=== PATIENT | female | born 1970 | race Caucasian/White ===

== ENCOUNTER 2019-12-23 09:45 | Outpatient (REF) | payer MEDICAID, SELFPAY ==
--- NOTE | 2019-12-23 10:00 | MR_ITS ---
EXAMINATION: MR BREAST WITHOUT AND WITH CONTRAST, BILATERAL CLINICAL INFORMATION: High-risk screening. Dense breasts. Family history of breast cancer. Lifetime risk previously reported at 23%. COMPARISON: Chest CT 08/11/2018. Breast MRI 07/22/2018. Breast MRI 06/03/2017. TECHNIQUE: Imaging was performed with a dedicated breast coil. Prior to the administration of contrast, bilateral axial T1 and bilateral axial T2 weighted sequences were obtained. After the uneventful administration of?7 mL of Gadavist, dynamic contrast-enhanced VIBRANT series through the breasts in the axial plane were performed. Subtracted images were performed and reviewed. A delayed sagittal sequence through both breasts was acquired. Additionally, CAD post-processing, including maximum intensity projections, 3-D reconstructions and kinetic analysis, were performed an independent workstation and reviewed by the interpreting radiologist is a portion of this exam. FINDINGS: The breasts are comprised of heterogeneous, dense fibroglandular parenchyma. The breast parenchyma undergoes marked background enhancement. LEFT BREAST: Amidst dense background enhancement, no suspicious mass, dominant non-mass enhancement or architectural distortion. Biopsy clip artifact noted. There is a morphologically abnormal left axillary node (series 100 image 26/126). This is likely related to prior thoracic surgery, however, further evaluation with targeted ultrasound is advised. Biopsy may be required. RIGHT BREAST: No suspicious mass, dominant non-mass enhancement or architectural distortion. Stable intramammary node in the upper outer quadrant at 10 o'clock (image 38/126). Flattening of the right nipple is a stable finding. Right axillary nodes are normal in appearance. No internal mammary lymphadenopathy. There is sternal artifact from sternotomy wires. An anterior mediastinal mass has been resected. There are linear areas of enhancement in the anterior left mid and lower lung (series 100 image 38, 65/126). Favor segmental atelectasis in the left lung. Follow-up advised with chest CT. Multiplanar reformats suggest abnormal elevation of left diaphragm. This raises the possibility of phrenic nerve paralysis. Consider chest radiography and diaphragmatic fluoroscopy. MR/MR breast BI wo/w con IMPRESSION: 1. No screening MR evidence of breast malignancy. Marked background enhancement limits evaluation. Repeat study in one years time. 2. Morphologically abnormal left axillary node. Recommend targeted diagnostic ultrasound. Although this is likely related to thoracic surgery, underlying, occult breast pathology cannot be excluded. 3. Abnormal elevation of left diaphragm. Diaphragmatic paralysis is a concern. 4. Linear/bandlike areas of enhancement in the left lung, likely atelectasis. ASSESSMENT: LEFT BREAST: BI-RADS Category 4, suspicious finding RIGHT BREAST: BI-RADS scattered 2, benign finding RECOMMENDATIONS: 1. Recommend targeted diagnostic ultrasound of the left axilla. 2. Recommend chest radiography. Consider chest fluoroscopy to assess for left diaphragmatic paralysis. 3. Chest radiography will assist in further evaluation of left lung areas of enhancement. Recommend PA and lateral views to best characterize. Alternatively, the patient could undergo CT of the chest and follow-up of 08/11/2018 exam. The patient is due for yearly screening mammography. This critical result was discussed with LAVERN Rich at 5:20 PM on 12/24/2019 and it was ascertained that the content and urgency of the report was understood at the time of direct communication.
== END 2019-12-23 09:46 | disposition home or self-care (01) ==
LOC: HO.MRI 09:45
PROVIDERS: Visit Provider Surgery
DX: R92.2 Inconclusive mammogram (principal); Z80.3 Family history of malignant neoplasm of breast; Z91.89 Other specified personal risk factors, not elsewhere classified
CPT/HCPCS: 77049

== ENCOUNTER 2020-01-07 09:55 | Outpatient (REF) | payer MEDICAID, SELFPAY | END 2020-01-07 09:56 | disposition home or self-care (01) | LOC: HO.MAMMO 09:55 | PROVIDERS: PCP Internal Medicine; Visit Provider Surgery | DX: Z13.89 Encounter for screening for other disorder (principal) ==

== ENCOUNTER 2020-02-03 07:57 | Outpatient (REF) | payer MEDICAID, SELFPAY ==
--- NOTE | 2020-02-03 | MM_ITS ---
EXAMINATION: US DIAGNOSTIC ULTRASOUND BREAST, LEFT ULTRASOUND GUIDED CORE BIOPSY BREAST, LEFT POST PROCEDURE DIGITAL MAMMOGRAM, LEFT CLINICAL INFORMATION: 49-year-old with recent high risk screening breast MR noting morphologically abnormal left axillary node for sampling. Prior history benign bilateral breast biopsies as well as resection mediastinal thymoma. COMPARISON: MRI right breast 12/23/2019, 07/22/2018, 07/22/2017, CT chest 08/11/2018, bilateral digital breast tomosynthesis 04/15/2018. Most recent outside mammography performed at outside facility in early 2019, not available. TECHNIQUE: Targeted ultrasound of the upper outer left breast and axillary is performed using grayscale imaging and color Doppler. FINDINGS (Diagnostic Left Ultrasound): The node with focal nodular convexity noted on recent MRI is identified. FINDINGS (Ultrasound-guided Biopsy): Proper informed consent is obtained from the patient after discussion of the procedure, potential risks and complications, and alternatives. Patient was given an opportunity for questions. The patient appeared to understand. The patient consented to the procedure and signed the consent form. GUIDANCE: Ultrasound-guided; aseptic technique. LESION: Left axillary node with focal nodular convexity. APPROACH: Oblique caudal cranial. ANESTHESIA: 10 mL 1% lidocaine. DERMATOTOMY: Single skin stone dermatotomy performed. NEEDLE: 16-gauge Bard Marquee biopsy device with co-axial introducer. CORES: 6. CLIP: HydroMARK; shape: open coil. POST PROCEDURE UNILATERAL DIGITAL MAMMOGRAM: The post biopsy mammogram is performed in separate room using separate digital mammography equipment from the biopsy procedure. Single left MLO view is obtained. The breasts are heterogeneously dense, which may obscure small masses (breast composition category: c). The clip marker is in position. There is background increased attenuation from all the local anesthesia and sampling. Otherwise, no gross hematoma. The patient tolerated the procedure well. No immediate complications. Home instructions reviewed with the patient. Final pathology results are pending. MM/MM diagnostic mammo unilat LT IMPRESSION: 1. Status post ultrasound-guided core biopsy left axillary node. 2. Clip placed: HydroMARK; shape: open coil. 3. Pathology pending. An addendum report will be issued.
== END 2020-02-03 07:58 | disposition home or self-care (01) ==
LOC: HO.MAMMO 07:57
PROVIDERS: PCP Internal Medicine; Visit Provider Surgery
DX: R59.0 Localized enlarged lymph nodes (principal); R59.1 Generalized enlarged lymph nodes
CPT/HCPCS: 38505; 76642; 76942; 77065; 88305; 88341; 88342; A4648

== ENCOUNTER → 2020-02-10 11:15 | Outpatient (BNVA) | payer MEDICAID, SELFPAY | PROVIDERS: PCP Internal Medicine; Visit Provider Surgery | DX: Z76.89 Persons encountering health services in other specified circumstances (principal) ==

== ENCOUNTER 2020-03-16 17:18 | Inpatient (IN) | payer MEDICAID, SELFPAY ==
[2020-03-16 17:27] VITALS: BP 129/71; PULSE 115; RESP 24; TEMP 38.6; O2SAT 89; BMI 25.0
--- NOTE | 2020-03-16 17:34 | XR_ITS ---
EXAMINATION: XR CHEST CLINICAL INFORMATION: Shortness of breath and fever. Covid. COMPARISON: 09/04/2017 TECHNIQUE: Frontal view of the chest was obtained. FINDINGS: Elevated left hemidiaphragm. Lung volumes are low. Patchy airspace opacities are seen bilaterally, greatest at the right base. No pleural effusion or pneumothorax. The cardiomediastinal silhouette is unchanged. XR/XR chest 1V IMPRESSION: Patchy airspace opacities, greatest at the right base. This corresponds with the clinical history of Covid.
--- NOTE | 2020-03-16 17:34 | ECG_ITS ---
Test Reason : SOB Blood Pressure : / mmHG Vent. Rate : 098 BPM Atrial Rate : 098 BPM P-R Int : 124 ms QRS Dur : 080 ms QT Int : 328 ms P-R-T Axes : 050 070 022 degrees QTc Int : 418 ms Normal sinus rhythm Normal ECG No previous ECGs available Referred By: Katerin Mcgraw Electronically Signed By:DARIA GARCIA MD
--- NOTE | 2020-03-16 17:39 | ED_ITS ---
HPI - General Adult General Chief complaint: General Medical Stated complaint: +covid, anxiety Time Seen by Provider: 03/16/20 17:33 Source: patient and EMS Mode of arrival: EMS Limitations: no limitations History of Present Illness HPI narrative: 49 y/o female with history of thymoma s/p resection October 2018, anxiety, depression, ?fibromyalgia who presents with symptoms of worsening COVID-19. She was diagnosed on 03/13. She first developed symptoms on 03/09. She reports persistent chills, fever, cough, body aches and headache. She has been taking 1000 mg of Tylenol 4x per day without improvement. She reports SOB and chest discomfort, especially when having coughing fits. MD complaint: COVID-19 symptoms Onset (ago): day(s) () Location: head, chest and back Radiation: non-radiation Severity: severe Quality: aching Pain Consistency: constant Relieving factors: none Exacerbating factors: movement Associated symptoms: chest pain, cough, fever/chills, headaches, loss of appetite, malaise, nausea/vomiting, shortness of breath and weakness Treatments prior to arrival: other (Tylenol @ 4pm ) Related Data Home Medications Medication Instructions Recorded Confirmed acetaminophen 300 mg-codeine 30 mg 1 tab PO Q8H PRN 02/10/20 03/16/20 tablet acetaminophen 325 mg capsule 325 mg PO QID PRN 02/10/20 03/16/20 clonazepam 2 mg tablet 2 mg PO TID 02/10/20 03/16/20 dicyclomine 10 mg capsule 10 mg PO QID 02/10/20 03/16/20 fesoterodine 4 mg tablet,extended 4 mg PO DAILY 02/10/20 03/16/20 release 24 hr gabapentin 800 mg tablet 800 mg PO BID 02/10/20 03/16/20 hydroxyzine HCl 10 mg tablet 10 mg PO TID PRN 02/10/20 03/16/20 omeprazole 40 mg capsule,delayed 40 mg PO BID 02/10/20 03/16/20 release sertraline 100 mg tablet 200 mg PO DAILY tab 02/10/20 03/16/20 Allergies Allergy/AdvReac Type Severity Reaction Status Date / Time ibuprofen [From MOTRIN] Allergy Unknown GASTRITIS Verified 03/16/20 17:27 Motrin Allergy Unknown nausea and Uncoded 03/16/20 17:27 vomiting Review of Systems Review of Systems: Constitutional: + Fever, + Chills ENT/Mouth: + sore throat, No Rhinorrhea, No Swallowing Difficulty Eyes: No Eye Pain, No Swelling, No Redness Cardiovascular: + Chest Pain, + SOB, No Orthopnea, No Edema Respiratory: + Cough, No Sputum, No Wheezing, + dyspnea Gastrointestinal: + Nausea, No Vomiting, No Diarrhea, No abdominal Pain, No Hematochezia, No Melena Genitourinary: No Dysuria, No Urinary Frequency, No Hematuria Musculoskeletal: + joint pain, + Myalgias Skin: No Skin Lesions, No rash Neuro: + Weakness, No Numbness, No Dizziness, + Headache Psych: + Anxiety/Panic, No Depression Heme/Lymph: No Bruising, No Lymphadenopathy Endocrine: No Polyuria, No Polydipsia PMFSH Past Medical History Medical History (Updated 03/16/20 @ 20:54 by LAVERN Matos) Family history of breast cancer Social History Social History (Updated 02/10/20 @ 11:18 by Lucy Franz Oksana) Alcohol intake: never Smoking Status: Never smoker Advance Directives: No Advance Directives Information Provided: Yes Physical Exam Vital Signs: Vital Signs: Last Vital Signs Temp 98.6 F 03/16/20 20:04 Pulse 80 03/16/20 20:04 Resp 22 H 03/16/20 20:04 BP 107/60 03/16/20 20:04 Pulse Ox 99 03/16/20 20:04 Body Mass Index 25.0 Appearance: Alert. Oriented X3. Mild respiratory distress with increased RR, retching in vomit bag, Eyes: Pupils equal, round and reactive to light. ENT: Pharynx normal. Neck: Normal inspection. Neck supple. CVS: rapid rate, regular rhythm. Pulses normal. Respiratory: Mild respiratory rate with RR mid 20's, hoarse cough, non- productive, lungs coarse throughout without rhonchi or rales. Abdomen: Soft with mild epigastric tenderness, +BS x4 Skin: Skin warm, diaphoretic. Normal skin color. Normal skin turgor. No rashes. Extremities: No lower extremity edema. Negative Willy's sign. Neuro: Oriented X 3. Non-focal. Course Course Course Narrative: 49 y/o female presenting with worsening COVID-19 symptoms including SOB, fever, chills, body aches. She presents with fever, tachycardia and hypoxia 89% on RA. Sepsis due to viral infection suspected. Low suspicion for superimposed bacterial infection. Placed on 2L NC with improvement in saturations. Will get sepsis workup, CXR, inflammatory markers. IV decadron ordered. She will require admission given hyoxia. Reevaluation(s) Reevaluation #1: Labs show mild elevation in LFTs. No leukocytosis. No RUQ tenderness, doubt cholecystitis or biliary obstruction, ALP normal.CXR with DDIMER elevated 400s, will get CTA to r/o PE. Reevaluation #2: Patient continues to report headache after Toradol. Temp and HR improved. Will give dose of Benadryl and Reglan as well as additional IVF. CTA negative for PE but showed patchy opacities. Remains on oxygen. Will call hospitalist for admission. Reevaluation #3: Spoke with Dr. Handy who will admit the patient. Medical Decision Making Lab Data Result diagrams: 03/16/20 Unknown 03/16/20 17:44 Labs: Lab Results 03/16/20 03/16/20 03/16/20 Range/Units 17:44 17:44 17:44 WBC (4.8-10.8) X10*3/uL RBC (4.20-5.50) X10*6/uL Hgb (12.0-16.0) g/dl Hct (37-47) % MCV (80-98) fL MCH (27.0-33.0) pg MCHC (31.0-35.0) g/dl RDW (11.0-16.0) % Plt Count (160-400) X10*3/uL MPV (9.4-12.3) fL Immature Gran % (Auto) (0.0-0.4) % Neut % (Auto) (45-73) % Lymph % (Auto) (20-40) % [place] % (Auto) (2-11) % Eos % (Auto) (0-4) % Baso % (Auto) (0-2) % Lymph # (Auto) (1.2-4.9) X10*3/uL [place] # (Auto) (0.1-1.2) X10*3/uL Eos # (Auto) (0.0-0.4) X10*3/uL Baso # (Auto) (0.0-0.2) X10*3/uL Abs Immat Gran (auto) (0.00-0.03) X10*3/uL Absolute Neuts (auto) (2.0-8.3) X10*3/uL Absolute Nucleated RBC (0.0-0.012) X10*3/uL Nucleated RBC % (auto) (0.0-0.2) /100WBC Smear Tech's Comments PT 16.3 H (10.8-13.0) SEC INR 1.4 H (0.9-1.1) APTT 34.6 (24.1-38.0) SEC D-Dimer 457 NG/ML Sodium 135 (135-145) mmol/L Potassium 4.2 (3.3-5.1) mmol/l Chloride 102 (96-108) mmol/L Carbon Dioxide 21 L (22-29) mmol/L Anion Gap 16 (12-20) BUN 10 (9-16) mg/dL Creatinine 0.68 (0.5-1.4) mg/dL Estim Creat Clear Calc 97.2 Estimated GFR > 60 Random Glucose 118 H (60-115) mg/dL Lactic Acid 0.9 (0.5-2.0) mmol/L Calcium 8.2 L (8.4-10.2) mg/dL Total Bilirubin 1.4 H (0.0-1.0) mg/dL Direct Bilirubin 0.7 H (0.0-0.5) mg/dL AST 36 H (5-31) U/L ALT 26 (0-31) U/L Alkaline Phosphatase 86 (39-117) U/L Troponin I High Sens (<3.5-17.0) ng/L B-Natriuretic Peptide (<100) pg/mL Total Protein 7.1 (6.5-8.0) g/dL Albumin 4.1 (3.5-5.0) g/dL COVID-19 (MARBELLA) (Negative) COVID-19 Clin Com 03/16/20 03/16/20 03/16/20 Range/Units 17:44 20:21 Unknown WBC 7.4 (4.8-10.8) X10*3/uL RBC 4.21 (4.20-5.50) X10*6/uL Hgb 12.7 (12.0-16.0) g/dl Hct 37.8 (37-47) % MCV 89.8 (80-98) fL MCH 30.2 (27.0-33.0) pg MCHC 33.6 (31.0-35.0) g/dl RDW 12.4 (11.0-16.0) % Plt Count 219 (160-400) X10*3/uL MPV 10.1 (9.4-12.3) fL Immature Gran % (Auto) 0.3 (0.0-0.4) % Neut % (Auto) 90.3 H (45-73) % Lymph % (Auto) 5.6 L (20-40) % [place] % (Auto) 3.4 (2-11) % Eos % (Auto) 0.1 (0-4) % Baso % (Auto) 0.3 (0-2) % Lymph # (Auto) 0.4 L (1.2-4.9) X10*3/uL [place] # (Auto) 0.3 (0.1-1.2) X10*3/uL Eos # (Auto) 0.0 (0.0-0.4) X10*3/uL Baso # (Auto) 0.0 (0.0-0.2) X10*3/uL Abs Immat Gran (auto) 0.02 (0.00-0.03) X10*3/uL Absolute Neuts (auto) 6.7 (2.0-8.3) X10*3/uL Absolute Nucleated RBC 0.000 (0.0-0.012) X10*3/uL Nucleated RBC % (auto) 0.0 (0.0-0.2) /100WBC Smear Tech's Comments VERIFIED PT (10.8-13.0) SEC INR (0.9-1.1) APTT (24.1-38.0) SEC D-Dimer NG/ML Sodium (135-145) mmol/L Potassium (3.3-5.1) mmol/l Chloride (96-108) mmol/L Carbon Dioxide (22-29) mmol/L Anion Gap (12-20) BUN (9-16) mg/dL Creatinine (0.5-1.4) mg/dL Estim Creat Clear Calc Estimated GFR Random Glucose (60-115) mg/dL Lactic Acid (0.5-2.0) mmol/L Calcium (8.4-10.2) mg/dL Total Bilirubin (0.0-1.0) mg/dL Direct Bilirubin (0.0-0.5) mg/dL AST (5-31) U/L ALT (0-31) U/L Alkaline Phosphatase (39-117) U/L Troponin I High Sens 3.7 (<3.5-17.0) ng/L B-Natriuretic Peptide < 10 (<100) pg/mL Total Protein (6.5-8.0) g/dL Albumin (3.5-5.0) g/dL COVID-19 (MARBELLA) Positive A (Negative) COVID-19 Clin Com See Note ECG Data Attestation: I personally reviewed and interpreted this ECG as follows: Interpretation: normal sinus rhythm, HR 98 bpm, normal IN interval, normal QTc. no ST segment elevations. Scores [place] PE Heart rate > 100 p/min: 1.5 Score: 1.5 2-tier Risk: unlikely risk (5%) 3-tier Risk: low risk (3.4%) Discharge Plan Discharge Clinical Impression: COVID-19 Patient Disposition: Admitted As Inpatient Prescriptions: No Action dicyclomine 10 mg capsule 10 mg PO QID RF: 0 omeprazole 40 mg capsule,delayed release(DR/EC) 40 mg PO BID RF: 0 acetaminophen 325 mg capsule 325 mg PO QID PRN (Reason: Fever Or Pain) RF: 0 sertraline 100 mg tablet 200 mg PO DAILY RF: 0 hydroxyzine HCl 10 mg tablet 10 mg PO TID PRN (Reason: Itching) RF: 0 Toviaz 4 mg tablet extended release 24 hr 4 mg PO DAILY RF: 0 clonazepam 2 mg tablet 2 mg PO TID RF: 0 gabapentin 800 mg tablet 800 mg PO BID RF: 0 acetaminophen-codeine 300-30 mg tablet 1 tab PO Q8H PRN (Reason: Pain (Scale Score 4-6)) RF: 0
[2020-03-16 17:54] LABS: Basophils Percent Auto 0.3 % (0-2); Eosinophils Percent Auto 0.1 % (0-4); Hematocrit 37.8 % (37-47); Hemoglobin 12.7 g/dl (12.0-16.0); Imm Gran Abs Auto 0.02 X10*3/uL (0.00-0.03); Imm Gran Pct Auto 0.3 % (0.0-0.4); Lymphocytes Absolute Auto 0.4 X10*3/uL (1.2-4.9); Lymphocytes Percent Auto 5.6 % (20-40); MANUAL DIFF FLAG SCAN; Mean Corpuscular HGB Conc 33.6 g/dl (31.0-35.0); Mean Corpuscular Hemoglobin 30.2 pg (27.0-33.0); Mean Corpuscular Volume 89.8 fL (80-98); Mean Platelet Volume 10.1 fL (9.4-12.3); Monocytes Absolute Auto 0.3 X10*3/uL (0.1-1.2); Monocytes Percent Auto 3.4 % (2-11); Neutrophils Absolute Auto 6.7 X10*3/uL (2.0-8.3); Neutrophils Percent Auto 90.3 % (45-73); Platelet Count 219 X10*3/uL (160-400); Red Blood Count 4.21 X10*6/uL (4.20-5.50); Red Cell Distribution Width 12.4 % (11.0-16.0); SCAN SMEAR FLAG 1; White Blood Count 7.4 X10*3/uL (4.8-10.8)
[2020-03-16 18:00] LABS: INTERNATIONAL NORM RATIO 1.4 (0.9-1.1); Prothrombin Time 16.3 SEC (10.8-13.0)
[2020-03-16 18:03] LABS: Partial Thromboplastin Time 34.6 SEC (24.1-38.0)
[2020-03-16] MEDS: 0.9 % Sodium Chloride 1,000 ML 999 ML IVCONT ×2 (18:07→20:00)
[2020-03-16] MEDS: Ketorolac Tromethamine 30 MG/ML VIAL IVPUSH (18:07)
[2020-03-16 18:10] LABS: Lactic Acid 0.9 mmol/L (0.5-2.0)
[2020-03-16 18:11] LABS: SLIDE REVIEW VERIFIED
[2020-03-16 18:12] VITALS: BP 123/71; PULSE 101; RESP 22; O2SAT 99
[2020-03-16 18:17] LABS: Alanine Aminotransferase 26 U/L (0-31); Albumin Level 4.1 g/dL (3.5-5.0); Alkaline Phosphatase 86 U/L (39-117); Anion Gap 16 (12-20); Aspartate Amino Transferase 36 U/L (5-31); Bilirubin Direct 0.7 mg/dL (0.0-0.5); Bilirubin Total 1.4 mg/dL (0.0-1.0); Blood Urea Nitrogen 10 mg/dL (9-16); Calcium 8.2 mg/dL (8.4-10.2); Carbon Dioxide 21 mmol/L (22-29); Chloride 102 mmol/L (96-108); Creatinine Clr Calc Pharmacy 97.2; Estimated Glomerular Filt Rate > 60; Glucose Random 118 mg/dL (60-115); Potassium 4.2 mmol/l (3.3-5.1); Sodium 135 mmol/L (135-145); Total Protein 7.1 g/dL (6.5-8.0)
[2020-03-16] MEDS: dexAMETHasone sod phosphate 4 MG/ML VIAL 6 MG IVPUSH (18:24)
[2020-03-16] MEDS: ondansetron HCL 4 MG/2 ML VIAL IVPUSH (18:24)
[2020-03-16 18:32] LABS: B Type Natriuretic Peptide < 10 pg/mL (<100); Troponin-I High Sensitivity 3.7 ng/L (<3.5-17.0)
[2020-03-16 18:54] LABS: D Dimer 457 NG/ML
[2020-03-16 19:14] VITALS: BP 106/60; PULSE 87; RESP 20; TEMP 37.6; O2SAT 99
--- NOTE | 2020-03-16 19:25 | CT_ITS ---
EXAMINATION: CT ANGIOGRAM OF THE CHEST WITH AND WITHOUT CONTRAST (CT PULMONARY ANGIOGRAM FOR PE) CLINICAL INFORMATION: Cardiomegaly, hypoxia, Covid positive. Evaluate for PE. COMPARISON: Chest radiograph performed same day, chest CT 08/11/2018 TECHNIQUE: Prior to contrast administration, noncontrast localization images were obtained. Subsequently, multidetector volumetric imaging was performed from the thoracic inlet to below the diaphragms following the administration of 65.1 mL Omnipaque 350 intravenous contrast. No contrast reaction reported Sagittal, coronal, and MIP oblique sagittal reformatted images were obtained on the CT workstation, uploaded to PACS, and reviewed. This CT examination was performed using dose optimization techniques as appropriate, variously including the following: *Automated exposure control *Adjustment of mA and/or kV according to patient size (this includes techniques or standardized protocols for targeted exams where dose is matched to indication/reason for exam; i.e. extremities or head) *Use of iterative reconstruction technique Total exam dose-length product 274 mGy-cm FINDINGS: QUALITY OF STUDY/CONTRAST BOLUS: The contrast bolus was of satisfactory timing concentration, however the patient's airspace opacities limit sensitivity of the subsegmental pulmonary arteries. PULMONARY ARTERIES: No central pulmonary emboli are identified. THORACIC AORTA: No aneurysm or dissection. LUNG: Patchy peripheral dense and groundglass opacities are seen bilaterally. Left hemidiaphragm elevation. The consolidative changes of the left lung are suspected to also be at least in part due to the left hemidiaphragm elevation. Trachea is midline and central airways are patent. Possible tracheal diverticulum, unchanged since the prior CT from 2019. PLEURA: No pleural effusion or pneumothorax. MEDIASTINUM: Interval surgical removal of the anterior mediastinal mass. Heart size is normal. No pericardial effusion. No mediastinal or hilar lymphadenopathy. Limited views of the thyroid gland are unremarkable. Median sternotomy wires, new since the prior study. No evidence of septal bowing or right heart strain. CHEST WALL/AXILLA: No axillary or internal mammary lymphadenopathy. OSSEOUS STRUCTURES: No acute or suspicious osseous abnormality. UPPER ABDOMEN: No acute findings. No reflux of contrast into the hepatic veins to suggest elevated right heart pressures. CT/CT angio chest PE protocol IMPRESSION: 1. No evidence of pulmonary embolism. 2. Patchy peripheral airspace opacities are nonspecific but are in keeping with the patient's known Covid positive status. 3. Interval resection of the patient's anterior mediastinal mass. 4. Left hemidiaphragm elevation. VTE: negative
--- NOTE | 2020-03-16 19:46 | PC.NURSE ---
pt to and from imaging without incident. pt currently complaining of headache. fever improved.
[2020-03-16] MEDS: iohexoL 350 MG/ML 100 ML INFUS..BTL 65 ML IV (19:57)
[2020-03-16] MEDS: Metoclopramide HCl 10 MG/2 ML VIAL IVPUSH (20:00)
[2020-03-16] MEDS: diphenhydrAMINE HCL 50 MG/ML VIAL 25 MG IVPUSH (20:00)
[2020-03-16 20:04] VITALS: BP 107/60; PULSE 80; RESP 22; TEMP 37; O2SAT 99
[2020-03-16 20:37] LABS: COVID-19 Test Positive (Negative); IDNOW Serial# 9DD0AD1C
--- NOTE | 2020-03-16 20:56 | PC.NURSE ---
PT RESTING IN BED, FEVER BROKE. VSS. SECOND LITER OF IVF INFUSING WITHOUT DIFFICULTY. HOSPITALIST AT BEDSIDE FOR CONSULT.
[2020-03-16 21:11] VITALS: BP 103/66; PULSE 62; RESP 20; O2SAT 100
--- NOTE | 2020-03-16 21:13 | P.HPHOSP_ITS ---
History of Present Illness Date of Service: 03/16/20 Chief Complaint: worsening SOB This is a 49-year-old female with no significant past medical history who presents to the hospital with complaints of worsening shortness of breath. Patient was diagnosed with COVID-19 on Friday the 13 of March and presents today stating that her symptoms are worsening. She is complaining of headache, shortness of breath, worsening cough, chest pain with coughing, body aches, and low appetite. She otherwise denies any nausea vomiting, no abdominal pain, no diarrhea constipation, no urinary symptoms and no lower extremity edema. On arrival to the ED found to be hypoxic with an oxygen level of 89% on room air. She also has a temp of 101.4?, pulse rate of 115, respiratory rate of 24 blood pressure of 129/71 Labs are significant for WBC count of 7.4, hemoglobin of 12.7, PT of 16.3, INR of 1.4, total bili of 1.4, AST of 36, COVID-19 positive, chest x-ray shows Chest CT angiogram shows no evidence of pulmonary embolism, patchy peripheral airspace opacities Past medical history: Denies Surgical history: Reports removal of mediastinal mass Family history: History of breast cancer Social history: Comes from home denies tobacco alcohol or illicit drugs Review of Systems Review of Systems: Yes all other systems are reviewed and are negative [facility] Medical History Family history of breast cancer Social History (Updated 02/10/20 @ 11:18 by HEATH Ulrich) Alcohol intake: never Smoking Status: Never smoker Advance Directives: No Advance Directives Information Provided: Yes Meds Allergies Allergy/AdvReac Type Severity Reaction Status Date / Time ibuprofen [From MOTRIN] Allergy Unknown GASTRITIS Verified 03/16/20 17:27 Motrin Allergy Unknown nausea and Uncoded 03/16/20 17:27 vomiting Home Medications Medication Instructions Recorded Confirmed Type acetaminophen 300 mg-codeine 30 mg 1 tab PO Q8H PRN 02/10/20 03/16/20 History tablet acetaminophen 325 mg capsule 325 mg PO QID PRN 02/10/20 03/16/20 History clonazepam 2 mg tablet 2 mg PO TID 02/10/20 03/16/20 History dicyclomine 10 mg capsule 10 mg PO QID 02/10/20 03/16/20 History fesoterodine 4 mg tablet,extended 4 mg PO DAILY 02/10/20 03/16/20 History release 24 hr gabapentin 800 mg tablet 800 mg PO BID 02/10/20 03/16/20 History hydroxyzine HCl 10 mg tablet 10 mg PO TID PRN 02/10/20 03/16/20 History omeprazole 40 mg capsule,delayed 40 mg PO BID 02/10/20 03/16/20 History release sertraline 100 mg tablet 200 mg PO DAILY tab 02/10/20 03/16/20 History Physical Exam Vital Signs and Narrative: Vital Signs: Last Vital Signs Temp 98.6 F 03/16/20 20:04 Pulse 80 03/16/20 20:04 Resp 22 H 03/16/20 20:04 BP 107/60 03/16/20 20:04 Pulse Ox 99 03/16/20 20:04 Body Mass Index 25.0 Const: General: cooperative, no acute distress and tired appearing Orientation/consciousness: patient oriented x3 Eyes: General: appearance normal, both eyes and all related structures Resp: Effort & Inspection: normal respiratory effort and able to speak in complete sentences Cardio: Rate: regular rate Rhythm: regular rhythm GI: Palpation (GI): Soft to palpation Auscultation: normal bowel sounds Skin: General skin exam: no rashes or lesions noted Neuro: General: patient oriented x3 Cognition (Neuro): normal cognition Extrem: General: Yes normal to inspection and Yes no pedal edema Results Labs CBC and Chem 7: 03/16/20 Unknown 03/16/20 17:44 Labs: Laboratory Results - last 24 hr 03/16/20 03/16/20 03/16/20 17:44 17:44 17:44 MCV MCH MCHC RDW Plt Count MPV Immature Gran % (Auto) Neut % (Auto) Lymph % (Auto) [place] % (Auto) Eos % (Auto) Baso % (Auto) Lymph # (Auto) [place] # (Auto) Eos # (Auto) Baso # (Auto) Abs Immat Gran (auto) Absolute Neuts (auto) Absolute Nucleated RBC Nucleated RBC % (auto) Smear Tech's Comments PT 16.3 H INR 1.4 H APTT 34.6 D-Dimer 457 Anion Gap 16 Estim Creat Clear Calc 97.2 Estimated GFR > 60 Random Glucose 118 H Lactic Acid 0.9 Calcium 8.2 L Total Bilirubin 1.4 H Direct Bilirubin 0.7 H AST 36 H ALT 26 Alkaline Phosphatase 86 Troponin I High Sens B-Natriuretic Peptide Total Protein 7.1 Albumin 4.1 COVID-19 ([facility]) COVID-19 Clin Com 03/16/20 03/16/20 03/16/20 17:44 20:21 Unknown MCV 89.8 MCH 30.2 MCHC 33.6 RDW 12.4 Plt Count 219 MPV 10.1 Immature Gran % (Auto) 0.3 Neut % (Auto) 90.3 H Lymph % (Auto) 5.6 L [place] % (Auto) 3.4 Eos % (Auto) 0.1 Baso % (Auto) 0.3 Lymph # (Auto) 0.4 L [place] # (Auto) 0.3 Eos # (Auto) 0.0 Baso # (Auto) 0.0 Abs Immat Gran (auto) 0.02 Absolute Neuts (auto) 6.7 Absolute Nucleated RBC 0.000 Nucleated RBC % (auto) 0.0 Smear Tech's Comments VERIFIED PT INR APTT D-Dimer Anion Gap Estim Creat Clear Calc Estimated GFR Random Glucose Lactic Acid Calcium Total Bilirubin Direct Bilirubin AST ALT Alkaline Phosphatase Troponin I High Sens 3.7 B-Natriuretic Peptide < 10 Total Protein Albumin COVID-19 ([facility]) Positive A COVID-19 Clin Com See Note Imaging Radiologist's Impressions: Impressions Chest X-Ray 03/16/20 17:34 IMPRESSION: Patchy airspace opacities, greatest at the right base. This corresponds with the clinical history of Covid. Chest CTA 03/16/20 19:25 IMPRESSION: 1. No evidence of pulmonary embolism. 2. Patchy peripheral airspace opacities are nonspecific but are in keeping with the patient's known Covid positive status. 3. Interval resection of the patient's anterior mediastinal mass. 4. Left hemidiaphragm elevation. VTE: negative Assessment and Plan (1) Sepsis: Qualifiers: Sepsis type: sepsis due to unspecified organism Sepsis acute organ dysfunction status: with acute organ dysfunction Severe sepsis acute organ dysfunction type: acute respiratory failure Acute respiratory failure type: with hypoxia Severe sepsis shock status: without septic shock Qualified Code(s): A41.9 - Sepsis, unspecified organism; R65.20 - Severe sepsis without septic shock; J96.01 - Acute respiratory failure with hypoxia Status: Acute (2) Acute respiratory failure with hypoxia: Status: Acute (3) Pneumonia due to COVID-19 virus: Status: Acute 49-year-old female who presents to the hospital with worsening symptoms of COVID-19 infection # acute hypoxic respiratory failure - secondary to COVID-19 pneumonia - low procalcitonin therefore likely would of bacterial infection low Plan: - given hypoxia will start her on Decadron - O2 as required -monitor respiratory status # sepsis - secondary to COVID-19 - follow blood cultures, continue Decadron, hold off on antibiotics at this time # pneumonia - most likely viral secondary to COVID-19 - follow cultures - continue treatment as above DVT prophylaxis: Lovenox
[2020-03-16 21:20] LABS: Procalcitonin 0.16 ng/mL
--- NOTE | 2020-03-16 22:32 | PC.NURSE ---
PT RESTING IN BED EYES CLOSED SKIN PWD RESPIRATIONS EVEN UNLABORED. AWAITING BED ASSIGNMENT FOR ADMISSION. AWARE OF PLAN OF CARE.
[2020-03-17] VITALS (9 sets, daily range): BP systolic 98–141; BP diastolic 57–86; PULSE 57–75; RESP 18–22; TEMP 36.2–37.4; O2SAT 91–100; BMI 25.2
[2020-03-17] MEDS: 0.9 % Sodium Chloride Flush 3 ML SYRINGE IVFLUSH ×3 (00:09→14:34)
--- NOTE | 2020-03-17 00:16 | PC.NURSE ---
PT HELPED TO BATHROOM, GIVEN [facility] GOWN AND WARM WIPES TO CLEAN UP AFTER DIAPHORETIC DUE TO FEVER BREAKING. BEDDING CHANGED. RETURNED TO BED, VSS, SKIN PWD RESPIRATIONS EVEN UNLABORED. OFFERS NO COMPLAINTS AT THIS TIME, PO FLUIDS AND SNACK GIVEN. CONTINUES TO AWAIT BED ASSIGNMENT. AWARE OF PLAN OF CARE.
--- NOTE | 2020-03-17 03:10 | PC.NURSE ---
PT RESTING IN BED EYES CLOSED SKIN PWD RESPIRATIONS EVEN UNLBAORED. VSS. AWAITING BED ASSIGNMENT. WILL CONTINUE TO MONITOR.
--- NOTE | 2020-03-17 06:38 | PC.NURSE ---
PT CONTINUES TO REST IN BED, OFFERS NO COMPLAINTS. NSR ON HEAD OF DRAMA SPO2 99-100% ON 2L. BED ASSIGNMENT RECEIVED, HOLD UNTIL DAY SHIFT FOR REPORT PER [facility].
--- NOTE | 2020-03-17 07:31 | PC.NURSE ---
PT SITTING UP IN BED AT TIME OF SHIFT REPORT, SHE IS EATING SMALL AMOUNTS. NO ACUTE RESP DIFFICULTY NOTED SHE IS WEARING SUPPLEMENTAL O2 WITH GOOD OXYGENATION AWAITING REPORT FOR ADMISSION
[2020-03-17 07:45] LABS: Basophils Percent Auto 0.2 % (0-2); Hemoglobin 12.4 g/dl (12.0-16.0); Imm Gran Abs Auto 0.02 X10*3/uL (0.00-0.03); Imm Gran Pct Auto 0.4 % (0.0-0.4); Lymphocytes Absolute Auto 0.5 X10*3/uL (1.2-4.9); Lymphocytes Percent Auto 10.4 % (20-40); MANUAL DIFF FLAG SCAN; Mean Corpuscular HGB Conc 32.6 g/dl (31.0-35.0); Mean Corpuscular Hemoglobin 30.1 pg (27.0-33.0); Mean Corpuscular Volume 92.2 fL (80-98); Mean Platelet Volume 9.8 fL (9.4-12.3); Monocytes Absolute Auto 0.3 X10*3/uL (0.1-1.2); Monocytes Percent Auto 6.2 % (2-11); Neutrophils Absolute Auto 4.1 X10*3/uL (2.0-8.3); Neutrophils Percent Auto 82.8 % (45-73); Platelet Count 220 X10*3/uL (160-400); Red Blood Count 4.12 X10*6/uL (4.20-5.50); Red Cell Distribution Width 12.5 % (11.0-16.0); SCAN SMEAR FLAG 1
[2020-03-17 08:05] LABS: SLIDE REVIEW VERIFIED
[2020-03-17 08:13] LABS: Anion Gap 14 (12-20); Blood Urea Nitrogen 11 mg/dL (9-16); Calcium 8.2 mg/dL (8.4-10.2); Carbon Dioxide 23 mmol/L (22-29); Chloride 106 mmol/L (96-108); Estimated Glomerular Filt Rate > 60; Glucose Random 103 mg/dL (60-115); Potassium 4.3 mmol/l (3.3-5.1); Sodium 139 mmol/L (135-145)
[2020-03-17] MEDS: Acetaminophen 325 MG TABLET 650 MG PO (09:36)
[2020-03-17] MEDS: Heparin Sodium,Porcine 5,000 UNIT/ML VIAL 5000 UNIT SUBCUT ×2 (09:36→21:30)
[2020-03-17] MEDS: clonazePAM 1 MG TABLET 2 MG PO ×3 (09:36→21:29)
[2020-03-17] MEDS: Gabapentin 400 MG CAPSULE 800 MG PO ×2 (09:36→21:30)
[2020-03-17] MEDS: Dicyclomine HCl 10 MG CAPSULE PO ×3 (09:36→21:33)
[2020-03-17] MEDS: Sertraline HCL 100 MG TABLET 200 MG PO (09:37)
[2020-03-17] MEDS: dexAMETHasone sod phosphate 4 MG/ML VIAL 6 MG IVPUSH (09:37)
[2020-03-17] MEDS: Omeprazole 40 MG CAPSULE.DR PO ×2 (09:40→21:29)
--- NOTE | 2020-03-17 14:11 | MHC.CM.PN ---
Female 49 DX Covid. She lives with family. She is independent. DP home no services family transport. PCP is Dr Baudilio Mcintosh. CM will follow for change to DC needs.
--- NOTE | 2020-03-17 14:45 | PC.NURSE ---
Spoke with pt's who was worried and gave an update. Number that is good to reach him at is [phone]. Matthew said that we can call at any time. Will pass on RN
--- NOTE | 2020-03-17 16:22 | HO.PM.IMPN ---
Subjective Subjective Date of Service: 03/17/20 Interval History: patient seen and examined at bedside patient reported shortness of breath Review of Systems Constitutional: + Fever, + Chills ENT/Mouth: + sore throat, No Rhinorrhea, No Swallowing Difficulty Eyes: No Eye Pain, No Swelling, No Redness Cardiovascular: + Chest Pain, + SOB, No Orthopnea, No Edema Respiratory: + Cough, No Sputum, No Wheezing, + dyspnea Gastrointestinal: + Nausea, No Vomiting, No Diarrhea, No abdominal Pain, No Hematochezia, No Melena Genitourinary: No Dysuria, No Urinary Frequency, No Hematuria Musculoskeletal: + joint pain, + Myalgias Skin: No Skin Lesions, No rash Neuro: + Weakness, No Numbness, No Dizziness, + Headache Psych: + Anxiety/Panic, No Depression Heme/Lymph: No Bruising, No Lymphadenopathy Endocrine: No Polyuria, No Polydipsia Physical Exam Vital Signs: Vital Signs: Last Vital Signs Temp 97.2 F 03/17/20 15:23 Pulse 64 03/17/20 15:23 Resp 20 03/17/20 15:23 BP 113/62 03/17/20 15:23 Pulse Ox 98 03/17/20 15:23 Body Mass Index 25.2 Const: General: cooperative, no acute distress and tired appearing Orientation/consciousness: patient oriented x3 Eyes: General: appearance normal, both eyes and all related structures Resp: Effort & Inspection: normal respiratory effort and able to speak in complete sentences Cardio: Rate: regular rate Rhythm: regular rhythm GI: Palpation (GI): Soft to palpation Auscultation: normal bowel sounds Skin: General skin exam: no rashes or lesions noted Neuro: General: patient oriented x3 Cognition (Neuro): normal cognition Extrem: General: Yes normal to inspection and Yes no pedal edema Objective Data Current Medications Generic Name Dose Route Start Last Admin Trade Name Freq PRN Reason Stop Dose Admin Acetaminophen 650 mg 03/16/20 21:11 03/17/20 09:36 Acetaminophen 325 Mg Tablet PO 650 mg Q6H PRN Administration Pain, Mild (Pain Scale 1-3) Acetaminophen/Codeine Phosphate 1 tab 03/16/20 21:11 Acetaminophen With Codeine # 3 Tablet PO Q8H PRN Pain (Scale Score 4-6) Clonazepam 2 mg 03/17/20 09:00 03/17/20 14:31 Clonazepam 1 Mg Tablet PO 2 mg TID KARTHIK Administration Dexamethasone Sodium Phosphate 6 mg 03/17/20 09:25 03/17/20 09:37 Dexamethasone Sod Phosphate 4 Mg/Ml Vial IVPUSH 6 mg DAILY KARTHIK Administration Dicyclomine HCl 10 mg 03/17/20 09:00 03/17/20 16:18 Dicyclomine Hcl 10 Mg Capsule PO Not Given QID KARTHIK Docusate Sodium 100 mg 03/16/20 21:11 Docusate Sodium 100 Mg Capsule PO DAILY PRN Constipation Gabapentin 800 mg 03/17/20 09:00 03/17/20 09:36 Gabapentin 400 Mg Capsule PO 800 mg BID KARTHIK Administration Heparin Sodium (Porcine) 5,000 unit 03/16/20 21:15 03/17/20 09:36 Heparin Sodium,Porcine 5,000 Unit/Ml Vial SUBCUT 5,000 unit Q12H KARTHIK Administration Hydroxyzine HCl 10 mg 03/16/20 21:11 Hydroxyzine Hcl 10 Mg Tablet PO TID PRN Itching Non-Formulary Medication 4 mg 03/17/20 09:00 Fesoterodine [Toviaz] PO DAILY [facility] Omeprazole 40 mg 03/17/20 09:00 03/17/20 09:40 Omeprazole 40 Mg Capsule.Dr PO 40 mg BID K[facility]IK Administration Ondansetron HCl 4 mg 03/16/20 21:11 Ondansetron Hcl 4 Mg/2 Ml Vial IVPUSH Q8H PRN Nausea and Vomiting Pharmacy Consult 1 each 03/16/20 17:34 Consult Rx Perform Med Rec MISCELLANE ONCE PRN Consult order Sertraline HCl 200 mg 03/17/20 09:00 03/17/20 09:37 Sertraline Hcl 100 Mg Tablet PO 150 mg DAILY [facility] Administration Sodium Chloride 3 ml 03/17/20 00:00 03/17/20 14:34 0.9 % Sodium Chloride Flush 3 Ml Syringe IVFLUSH 3 ml QSHIFT KARTHIK Administration Labs CBC & Chem 7: 03/17/20 07:37 03/17/20 07:37 Assessment and Plan (1) Sepsis: Status: Acute (2) Acute respiratory failure with hypoxia: Status: Acute (3) Pneumonia due to COVID-19 virus: Status: Acute Assessment and Plan: 49-year-old female who presents to the hospital with worsening symptoms of COVID-19 infection Acute hypoxic respiratory failure - secondary to COVID-19 pneumonia - low procalcitonin therefore likely would of bacterial infection low continue IV dexamethasone continue oxygen supplemental COVID pneumonia - most likely viral secondary to COVID-19 - follow cultures continue IV dexamethasone continue supportive management DVT prophylaxis: Lovenox
[2020-03-18 04:00] VITALS: BP 105/59; PULSE 98; RESP 18; TEMP 38.4; O2SAT 96
[2020-03-18] MEDS: Butalb/Acetamin/Caff 50/325/40 TABLET 1 TAB PO (04:54)
--- NOTE | 2020-03-18 05:40 | PC.NURSE ---
T101.1 this am. c/o headache. Declined ice packs. PRN APAP w/ codeine without effect. PRN fioricet approx 0500. Now sleeping.
[2020-03-18 08:00] VITALS: BP 91/56; PULSE 94; RESP 16; TEMP 37.1; O2SAT 93
[2020-03-18] MEDS: Sertraline HCL 100 MG TABLET 200 MG PO (09:50)
[2020-03-18] MEDS: clonazePAM 1 MG TABLET 2 MG PO ×3 (09:50→21:40)
[2020-03-18] MEDS: Gabapentin 400 MG CAPSULE 800 MG PO ×2 (09:50→21:41)
[2020-03-18] MEDS: Omeprazole 40 MG CAPSULE.DR PO ×2 (09:50→21:41)
[2020-03-18] MEDS: dexAMETHasone sod phosphate 4 MG/ML VIAL 6 MG IVPUSH (09:50)
[2020-03-18] MEDS: Heparin Sodium,Porcine 5,000 UNIT/ML VIAL 5000 UNIT SUBCUT ×2 (09:50→21:41)
[2020-03-18] MEDS: 0.9 % Sodium Chloride Flush 3 ML SYRINGE IVFLUSH ×3 (09:50→23:42)
[2020-03-18] MEDS: Dicyclomine HCl 10 MG CAPSULE PO ×4 (09:52→21:41)
[2020-03-18 12:00] VITALS: BP 98/57; PULSE 87; RESP 20; TEMP 37.3; O2SAT 96
--- NOTE | 2020-03-18 14:30 | HO.PM.IMPN ---
Subjective Subjective Date of Service: 03/18/20 Interval History: Patient seen and examined at bedside patient reported shortness of breath and weakness Review of Systems Constitutional: + Fever, + Chills ENT/Mouth: + sore throat, No Rhinorrhea, No Swallowing Difficulty Eyes: No Eye Pain, No Swelling, No Redness Cardiovascular: + Chest Pain, + SOB, No Orthopnea, No Edema Respiratory: + Cough, No Sputum, No Wheezing, + dyspnea Gastrointestinal: + Nausea, No Vomiting, No Diarrhea, No abdominal Pain, No Hematochezia, No Melena Genitourinary: No Dysuria, No Urinary Frequency, No Hematuria Musculoskeletal: + joint pain, + Myalgias Skin: No Skin Lesions, No rash Neuro: + Weakness, No Numbness, No Dizziness, + Headache Psych: + Anxiety/Panic, No Depression Heme/Lymph: No Bruising, No Lymphadenopathy Endocrine: No Polyuria, No Polydipsia Physical Exam Vital Signs: Vital Signs: Last Vital Signs Temp 99.1 F 03/18/20 12:00 Pulse 87 03/18/20 12:00 Resp 20 03/18/20 12:00 BP 98/57 L 03/18/20 12:00 Pulse Ox 96 03/18/20 12:00 Body Mass Index 25.2 Const: General: cooperative, no acute distress and tired appearing Orientation/consciousness: patient oriented x3 Eyes: General: appearance normal, both eyes and all related structures Resp: Effort & Inspection: normal respiratory effort and able to speak in complete sentences Cardio: Rate: regular rate Rhythm: regular rhythm GI: Palpation (GI): Soft to palpation Auscultation: normal bowel sounds Skin: General skin exam: no rashes or lesions noted Neuro: General: patient oriented x3 Cognition (Neuro): normal cognition Extrem: General: Yes normal to inspection and Yes no pedal edema Objective Data Current Medications Generic Name Dose Route Start Last Admin Trade Name Freq PRN Reason Stop Dose Admin Acetaminophen 650 mg 03/16/20 21:11 03/17/20 09:36 Acetaminophen 325 Mg Tablet PO 650 mg Q6H PRN Administration Pain, Mild (Pain Scale 1-3) Acetaminophen/Codeine Phosphate 1 tab 03/16/20 21:11 03/17/20 23:46 Acetaminophen With Codeine # 3 Tablet PO 1 tab Q8H PRN Administration Pain (Scale Score 4-6) Clonazepam 2 mg 03/17/20 09:00 03/18/20 14:12 Clonazepam 1 Mg Tablet PO 2 mg TID KARTHIK Administration Dexamethasone Sodium Phosphate 6 mg 03/17/20 09:25 03/18/20 09:50 Dexamethasone Sod Phosphate 4 Mg/Ml Vial IVPUSH 6 mg DAILY KARTHIK Administration Dicyclomine HCl 10 mg 03/17/20 09:00 03/18/20 14:12 Dicyclomine Hcl 10 Mg Capsule PO 10 mg QID KARTHIK Administration Docusate Sodium 100 mg 03/16/20 21:11 Docusate Sodium 100 Mg Capsule PO DAILY PRN Constipation Gabapentin 800 mg 03/17/20 09:00 03/18/20 09:50 Gabapentin 400 Mg Capsule PO 800 mg BID KARTHIK Administration Heparin Sodium (Porcine) 5,000 unit 03/16/20 21:15 03/18/20 09:50 Heparin Sodium,Porcine 5,000 Unit/Ml Vial SUBCUT 5,000 unit Q12H KARTHIK Administration Hydroxyzine HCl 10 mg 03/16/20 21:11 Hydroxyzine Hcl 10 Mg Tablet PO TID PRN Itching Non-Formulary Medication 4 mg 03/17/20 09:00 Fesoterodine [Toviaz] PO DAILY [facility] Omeprazole 40 mg 03/17/20 09:00 03/18/20 09:50 Omeprazole 40 Mg Capsule.Dr PO 40 mg BID [facility] Administration Ondansetron HCl 4 mg 03/16/20 21:11 Ondansetron Hcl 4 Mg/2 Ml Vial IVPUSH Q8H PRN Nausea and Vomiting Pharmacy Consult 1 each 03/16/20 17:34 Consult Rx Perform Med Rec MISCELLANE ONCE PRN Consult order Sertraline HCl 200 mg 03/17/20 09:00 03/18/20 09:50 Sertraline Hcl 100 Mg Tablet PO 200 mg DAILY [facility] Administration Sodium Chloride 3 ml 03/17/20 00:00 03/18/20 09:50 0.9 % Sodium Chloride Flush 3 Ml Syringe IVFLUSH 3 ml QSHIFT [facility] Administration Labs CBC & Chem 7: 03/17/20 07:37 03/17/20 07:37 Microbiology Microbiology Results: Microbiology 03/16/20 18:00 Blood - Venous Blood Culture - Preliminary No growth after 24 hours. 03/16/20 Unknown Blood - Venous Blood Culture - Preliminary No growth after 24 hours. Assessment and Plan (1) Sepsis: Status: Acute (2) Acute respiratory failure with hypoxia: Status: Acute (3) Pneumonia due to COVID-19 virus: Status: Acute Assessment and Plan: 49-year-old female who presents to the hospital with worsening symptoms of COVID-19 infection Acute hypoxic respiratory failure Still reporting dyspnea and requiring oxygen Secondary to COVID-19 pneumonia continue IV dexamethasone continue oxygen supplemental Continue supportive care DVT prophylaxis: Lovenox
[2020-03-18 16:00] VITALS: BP 102/61; PULSE 63; RESP 18; TEMP 36.6; O2SAT 97
[2020-03-18] MEDS: Remdesivir 200 MG in 0.9 % Sodium Chloride 210 ML 105 MG IV (19:12)
[2020-03-18 20:00] VITALS: BP 96/52; PULSE 64; RESP 18; TEMP 36.6; O2SAT 97
[2020-03-18] MEDS: Acetaminophen 325 MG TABLET 650 MG PO (23:36)
[2020-03-18 23:45] VITALS: BP 141/87; PULSE 88; RESP 20; TEMP 37.3; O2SAT 94
[2020-03-19] VITALS (7 sets, daily range): BP systolic 91–105; BP diastolic 53–59; PULSE 58–92; RESP 16–20; TEMP 36.4–38.2; O2SAT 90–95
[2020-03-19] MEDS: Heparin Sodium,Porcine 5,000 UNIT/ML VIAL 5000 UNIT SUBCUT ×2 (08:03→20:15)
[2020-03-19] MEDS: 0.9 % Sodium Chloride Flush 3 ML SYRINGE IVFLUSH ×2 (08:03→15:28)
[2020-03-19] MEDS: dexAMETHasone sod phosphate 4 MG/ML VIAL 6 MG IVPUSH (08:03)
[2020-03-19] MEDS: Dicyclomine HCl 10 MG CAPSULE PO ×4 (08:04→20:15)
[2020-03-19] MEDS: Sertraline HCL 100 MG TABLET 200 MG PO (08:04)
[2020-03-19] MEDS: Omeprazole 40 MG CAPSULE.DR PO ×2 (08:04→20:15)
[2020-03-19] MEDS: clonazePAM 1 MG TABLET 2 MG PO ×2 (08:04→20:15)
[2020-03-19] MEDS: Gabapentin 400 MG CAPSULE 800 MG PO ×2 (08:04→20:15)
[2020-03-19] MEDS: Acetaminophen 325 MG TABLET 650 MG PO (08:19)
--- NOTE | 2020-03-19 08:36 | PC.NURSE ---
temp 100.8 this am. tylenol given. 02 desat to 86% on 3L NC, increased to 5 L NC with 02 sat now 90%, insp wheeze throughout upper lung diaz
--- NOTE | 2020-03-19 13:37 | P.PNIM_ITS ---
Subjective Subjective Date of Service: 03/19/20 Interval History: Patient seen and examined at bedside patient reported shortness of breath and weakness Review of Systems Constitutional: + Fever, + Chills ENT/Mouth: + sore throat, No Rhinorrhea, No Swallowing Difficulty Eyes: No Eye Pain, No Swelling, No Redness Cardiovascular: + Chest Pain, + SOB, No Orthopnea, No Edema Respiratory: + Cough, No Sputum, No Wheezing, + dyspnea Gastrointestinal: + Nausea, No Vomiting, No Diarrhea, No abdominal Pain, No Hematochezia, No Melena Genitourinary: No Dysuria, No Urinary Frequency, No Hematuria Musculoskeletal: + joint pain, + Myalgias Skin: No Skin Lesions, No rash Neuro: + Weakness, No Numbness, No Dizziness, + Headache Psych: + Anxiety/Panic, No Depression Heme/Lymph: No Bruising, No Lymphadenopathy Endocrine: No Polyuria, No Polydipsia Physical Exam Vital Signs: Vital Signs: Last Vital Signs Temp 97.9 F 03/19/20 12:00 Pulse 72 03/19/20 12:00 Resp 20 03/19/20 12:00 BP 91/56 L 03/19/20 12:00 Pulse Ox 94 03/19/20 12:00 Body Mass Index 25.2 Const: General: cooperative, no acute distress and tired appearing Orientation/consciousness: patient oriented x3 Eyes: General: appearance normal, both eyes and all related structures Resp: Effort & Inspection: normal respiratory effort and able to speak in complete sentences Cardio: Rate: regular rate Rhythm: regular rhythm GI: Palpation (GI): Soft to palpation Auscultation: normal bowel sounds Skin: General skin exam: no rashes or lesions noted Neuro: General: patient oriented x3 Cognition (Neuro): normal cognition Extrem: General: Yes normal to inspection and Yes no pedal edema Objective Data Current Medications Generic Name Dose Route Start Last Admin Trade Name Freq PRN Reason Stop Dose Admin Acetaminophen 650 mg 03/16/20 21:11 03/19/20 08:19 Acetaminophen 325 Mg Tablet PO 650 mg Q6H PRN Administration Pain, Mild (Pain Scale 1-3) Acetaminophen/Codeine Phosphate 1 tab 03/16/20 21:11 03/18/20 23:32 Acetaminophen With Codeine # 3 Tablet PO 1 tab Q8H PRN Administration Pain (Scale Score 4-6) Clonazepam 2 mg 03/17/20 09:00 03/19/20 08:04 Clonazepam 1 Mg Tablet PO 2 mg TID KARTHIK Administration Dexamethasone Sodium Phosphate 6 mg 03/17/20 09:25 03/19/20 08:03 Dexamethasone Sod Phosphate 4 Mg/Ml Vial IVPUSH 6 mg DAILY [facility] Administration Dicyclomine HCl 10 mg 03/17/20 09:00 03/19/20 12:07 Dicyclomine Hcl 10 Mg Capsule PO 10 mg QID [facility]IK Administration Docusate Sodium 100 mg 03/16/20 21:11 Docusate Sodium 100 Mg Capsule PO DAILY PRN Constipation Gabapentin 800 mg 03/17/20 09:00 03/19/20 08:04 Gabapentin 400 Mg Capsule PO [address] [facility] Administration Heparin Sodium (Porcine) 5,000 unit 03/16/20 21:15 03/19/20 08:03 Heparin Sodium,Porcine 5,000 Unit/Ml Vial SUBCUT 5,000 unit Q12H [facility] Administration Hydroxyzine HCl 10 mg 03/16/20 21:11 Hydroxyzine Hcl 10 Mg Tablet PO TID PRN Itching Remdesivir 100 mg/ Sodium 230 mls @ 115 mls/hr 03/19/20 19:00 Chloride IV 03/22/20 20:[address] [facility] Non-Formulary Medication 4 mg 03/17/20 09:00 Fesoterodine [Toviaz] PO DAILY [facility] Omeprazole 40 mg 03/17/20 09:00 03/19/20 08:04 Omeprazole 40 Mg Capsule.Dr PO [address] [facility] Administration Ondansetron HCl 4 mg 03/16/20 21:11 Ondansetron Hcl 4 Mg/2 Ml Vial IVPUSH Q8H PRN Nausea and Vomiting Pharmacy Consult 1 each 03/16/20 17:34 Consult Rx Perform Med Rec MISCELLANE ONCE PRN Consult order Sertraline HCl 200 mg 03/17/20 09:00 03/19/20 08:04 Sertraline Hcl 100 Mg Tablet PO [address] [facility] Administration Sodium Chloride 3 ml 03/17/20 00:00 03/19/20 08:03 0.9 % Sodium Chloride Flush 3 Ml Syringe IVFLUSH [address] [facility] Administration Labs CBC & Chem 7: 03/17/20 07:37 03/17/20 07:37 Microbiology Microbiology Results: Microbiology 03/16/20 18:00 Blood - Venous Blood Culture - Preliminary No growth after 48 hours. 03/16/20 Unknown Blood - Venous Blood Culture - Preliminary No growth after 48 hours. Assessment and Plan (1) Sepsis: Status: Acute (2) Acute respiratory failure with hypoxia: Status: Acute (3) Pneumonia due to COVID-19 virus: Status: Acute Assessment and Plan: 49-year-old female who presents to the hospital with worsening symptoms of COVID-19 infection Acute hypoxic respiratory failure Secondary to COVID-19 pneumonia Still reporting dyspnea and requiring oxygen current required 5 L of oxygen continue IV dexamethasone started on remedesevir per ID monitor LFTs continue oxygen supplemental Continue supportive care DVT prophylaxis: Lovenox
[2020-03-19] MEDS: Remdesivir 100 MG in 0.9 % Sodium Chloride 230 ML 115 MG IV (18:25)
[2020-03-20] VITALS (8 sets, daily range): BP systolic 98–111; BP diastolic 50–67; PULSE 57–72; RESP 18–19; TEMP 36.1–37.1; O2SAT 90–96; BMI 25.9
[2020-03-20] MEDS: 0.9 % Sodium Chloride Flush 3 ML SYRINGE IVFLUSH ×4 (00:49→23:47)
--- NOTE | 2020-03-20 04:53 | PC.NURSE ---
Pt noted to be desatting at 85% on 2L, titrated up to 5L NC, O2 SAT sustaining 90%.
[2020-03-20 07:11] LABS: Alanine Aminotransferase 16 U/L (0-31); Albumin Level 3.5 g/dL (3.5-5.0); Alkaline Phosphatase 65 U/L (39-117); Anion Gap 14 (12-20); Aspartate Amino Transferase 15 U/L (5-31); Bilirubin Total 0.5 mg/dL (0.0-1.0); Blood Urea Nitrogen 13 mg/dL (9-16); Calcium 8.3 mg/dL (8.4-10.2); Carbon Dioxide 27 mmol/L (22-29); Chloride 103 mmol/L (96-108); Estimated Glomerular Filt Rate > 60; Glucose Random 97 mg/dL (60-115); Potassium 4.1 mmol/l (3.3-5.1); Sodium 140 mmol/L (135-145); Total Protein 6.2 g/dL (6.5-8.0)
[2020-03-20] MEDS: Heparin Sodium,Porcine 5,000 UNIT/ML VIAL 5000 UNIT SUBCUT ×2 (08:23→21:54)
[2020-03-20] MEDS: dexAMETHasone sod phosphate 4 MG/ML VIAL 6 MG IVPUSH (08:25)
[2020-03-20] MEDS: clonazePAM 1 MG TABLET 2 MG PO (08:27)
[2020-03-20] MEDS: Dicyclomine HCl 10 MG CAPSULE PO ×4 (08:27→21:54)
[2020-03-20] MEDS: Sertraline HCL 100 MG TABLET 200 MG PO (08:27)
[2020-03-20] MEDS: Omeprazole 40 MG CAPSULE.DR PO ×2 (08:28→21:54)
[2020-03-20] MEDS: Gabapentin 400 MG CAPSULE 800 MG PO ×2 (08:28→21:54)
--- NOTE | 2020-03-20 13:26 | P.PNIM_ITS ---
Subjective Subjective Date of Service: 03/20/20 Interval History: Patient seen and examined at bedside patient reported shortness of breath and weakness Review of Systems Constitutional: + Fever, + Chills ENT/Mouth: + sore throat, No Rhinorrhea, No Swallowing Difficulty Eyes: No Eye Pain, No Swelling, No Redness Cardiovascular: + Chest Pain, + SOB, No Orthopnea, No Edema Respiratory: + Cough, No Sputum, No Wheezing, + dyspnea Gastrointestinal: + Nausea, No Vomiting, No Diarrhea, No abdominal Pain, No Hematochezia, No Melena Genitourinary: No Dysuria, No Urinary Frequency, No Hematuria Musculoskeletal: + joint pain, + Myalgias Skin: No Skin Lesions, No rash Neuro: + Weakness, No Numbness, No Dizziness, + Headache Psych: + Anxiety/Panic, No Depression Heme/Lymph: No Bruising, No Lymphadenopathy Endocrine: No Polyuria, No Polydipsia Physical Exam Vital Signs: Vital Signs: Last Vital Signs Temp 97.5 F 03/20/20 11:32 Pulse 72 03/20/20 11:32 Resp 18 03/20/20 11:32 BP 100/55 L 03/20/20 11:32 Pulse Ox 91 L 03/20/20 11:32 Body Mass Index 25.9 Const: General: cooperative, no acute distress and tired appearing Orientation/consciousness: patient oriented x3 Eyes: General: appearance normal, both eyes and all related structures Resp: Effort & Inspection: normal respiratory effort and able to speak in complete sentences Cardio: Rate: regular rate Rhythm: regular rhythm GI: Palpation (GI): Soft to palpation Auscultation: normal bowel sounds Skin: General skin exam: no rashes or lesions noted Neuro: General: patient oriented x3 Cognition (Neuro): normal cognition Extrem: General: Yes normal to inspection and Yes no pedal edema Objective Data Current Medications Generic Name Dose Route Start Last Admin Trade Name Freq PRN Reason Stop Dose Admin Acetaminophen 650 mg 03/16/20 21:11 03/19/20 08:19 Acetaminophen 325 Mg Tablet PO 650 mg Q6H PRN Administration Pain, Mild (Pain Scale 1-3) Acetaminophen/Codeine Phosphate 1 tab 03/16/20 21:11 03/19/20 17:37 Acetaminophen With Codeine # 3 Tablet PO 1 tab Q8H PRN Administration Pain (Scale Score 4-6) Clonazepam 2 mg 03/17/20 09:00 03/20/20 08:27 Clonazepam 1 Mg Tablet PO 2 mg TID [facility] Administration Dexamethasone Sodium Phosphate 6 mg 03/17/20 09:25 03/20/20 08:25 Dexamethasone Sod Phosphate 4 Mg/Ml Vial IVPUSH 6 mg DAILY [facility] Administration Dicyclomine HCl 10 mg 03/17/20 09:00 03/20/20 08:27 Dicyclomine Hcl 10 Mg Capsule PO 10 mg QID [facility] Administration Docusate Sodium 100 mg 03/16/20 21:11 Docusate Sodium 100 Mg Capsule PO DAILY PRN Constipation Gabapentin 800 mg 03/17/20 09:00 03/20/20 08:28 Gabapentin 400 Mg Capsule PO 800 mg BID [facility] Administration Heparin Sodium (Porcine) 5,000 unit 03/16/20 21:15 03/20/20 08:23 Heparin Sodium,Porcine 5,000 Unit/Ml Vial SUBCUT 5,000 unit Q12H [facility] Administration Hydroxyzine HCl 10 mg 03/16/20 21:11 Hydroxyzine Hcl 10 Mg Tablet PO TID PRN Itching Remdesivir 100 mg/ Sodium 230 mls @ 115 mls/hr 03/19/20 19:00 03/19/20 20:29 Chloride IV 03/22/20 20:59 Infused Q24H [facility] Infusion Non-Formulary Medication 4 mg 03/17/20 09:00 Fesoterodine [Toviaz] PO DAILY [facility] Omeprazole 40 mg 03/17/20 09:00 03/20/20 08:28 Omeprazole 40 Mg Capsule.Dr PO 40 mg BID [facility] Administration Ondansetron HCl 4 mg 03/16/20 21:11 Ondansetron Hcl 4 Mg/2 Ml Vial IVPUSH Q8H PRN Nausea and Vomiting Pharmacy Consult 1 each 03/16/20 17:34 Consult Rx Perform Med Rec MISCELLANE ONCE PRN Consult order Sertraline HCl 200 mg 03/17/20 09:00 03/20/20 08:27 Sertraline Hcl 100 Mg Tablet PO 200 mg DAILY [facility] Administration Sodium Chloride 3 ml 03/17/20 00:00 03/20/20 08:28 0.9 % Sodium Chloride Flush 3 Ml Syringe IVFLUSH 3 ml QSHIFT [facility] Administration Labs CBC & Chem 7: 03/17/20 07:37 03/20/20 05:28 Microbiology Microbiology Results: Microbiology 03/16/20 18:00 Blood - Venous Blood Culture - Preliminary No growth after 48 hours. 03/16/20 Unknown Blood - Venous Blood Culture - Preliminary No growth after 48 hours. Assessment and Plan (1) Sepsis: Status: Acute (2) Acute respiratory failure with hypoxia: Status: Acute (3) Pneumonia due to COVID-19 virus: Status: Acute Assessment and Plan: 49-year-old female who presents to the hospital with worsening symptoms of COVID-19 infection Acute hypoxic respiratory failure Secondary to COVID-19 pneumonia complaining of chest pain Still reporting dyspnea and requiring oxygen currently requiring 5 L of oxygen continue IV dexamethasone continue remedesevir per ID monitor LFTs received plasma continue oxygen supplemental Continue supportive care DVT prophylaxis: Lovenox
--- NOTE | 2020-03-20 15:55 | P.CNID_ITS ---
History of Present Illness Data of Consult Service Date: 03/20/20 Requesting physician: Rowdy Ochoa Primary Care Provider: Unknown Physician HPI Reason for consult: COVID She has shortness of breath and chest pain for less than a week She has had fevers She has COVID diagnosis Review of Systems Review of Systems: Yes all other systems are reviewed and are negative PMFSH Past Medical History Medical History Family history of breast cancer Family History Family history: reviewed and not pertinent Social History Social History Household Members: Family Housing: Apartment Alcohol intake: never Smoking Status: Never smoker service: No Current occupational status: employed Meds Allergies Allergy/AdvReac Type Severity Reaction Status Date / Time ibuprofen [From MOTRIN] Allergy Unknown GASTRITIS Verified 03/16/20 17:27 Motrin Allergy Unknown nausea and Uncoded 03/16/20 17:27 vomiting Home Medications Medication Instructions Recorded Confirmed Type acetaminophen 300 mg-codeine 30 mg 1 tab PO Q8H PRN 02/10/20 03/16/20 History tablet acetaminophen 325 mg capsule 325 mg PO QID PRN 02/10/20 03/16/20 History clonazepam 2 mg tablet 2 mg PO TID 02/10/20 03/16/20 History dicyclomine 10 mg capsule 10 mg PO QID 02/10/20 03/16/20 History fesoterodine 4 mg tablet,extended 4 mg PO DAILY 02/10/20 03/16/20 History release 24 hr gabapentin 800 mg tablet 800 mg PO BID 02/10/20 03/16/20 History hydroxyzine HCl 10 mg tablet 10 mg PO TID PRN 02/10/20 03/16/20 History omeprazole 40 mg capsule,delayed 40 mg PO BID 02/10/20 03/16/20 History release sertraline 100 mg tablet 200 mg PO DAILY tab 02/10/20 03/16/20 History Physical Exam Vital Signs: Vital Signs: Last Vital Signs Temp 97.9 F 03/20/20 15:25 Pulse 62 03/20/20 15:25 Resp 19 03/20/20 15:25 BP 103/64 03/20/20 15:25 Pulse Ox 94 03/20/20 15:25 Body Mass Index 25.9 Const: General: cooperative HENMT: Head: Yes normal to inspection Mouth: moist mucous membranes Resp: Effort & Inspection: normal respiratory effort Cardio: Rate: regular rate Rhythm: regular rhythm GI: Palpation (GI): Soft to palpation and nontender Skin: General skin exam: no rashes or lesions noted Assessment and Plan (1) Pneumonia due to COVID-19 virus: Status: Resolved Would give Remdesivir Continue oxygen Dexamethasone (2) Sepsis: Qualifiers: Acute respiratory failure type: with hypoxia Sepsis acute organ dysfu nction status: with acute organ dysfunction Sepsis type: sepsis due to unspecified organism Severe sepsis acute organ dysfunction type: acute respiratory failure Severe sepsis shock status: without septic shock Qualified Code(s): A41.9 - Sepsis, unspecified organism; R65.20 - Severe sepsis without septic shock; J96.01 - Acute respiratory failure with hypoxia Status: Resolved Results Labs CBC & Chem 7: 03/24/20 06:19 03/26/20 06:18 Labs: BMP 03/20/20 05:28 Sodium 140 Potassium 4.1 Chloride 103 Carbon Dioxide 27 BUN 13 Creatinine 0.72 Calcium 8.3 L Liver Function 03/20/20 Range/Units 05:28 Total Bilirubin 0.5 (0.0-1.0) mg/dL AST 15 D (5-31) U/L ALT 16 (0-31) U/L Alkaline Phosphatase 65 D (39-117) U/L Albumin 3.5 (3.5-5.0) g/dL Microbiology Microbiology Results: Microbiology 03/16/20 18:00 Blood - Venous Blood Culture - Preliminary No growth after 48 hours. 03/16/20 Unknown Blood - Venous Blood Culture - Preliminary No growth after 48 hours.
[2020-03-20] MEDS: Remdesivir 100 MG in 0.9 % Sodium Chloride 230 ML 115 MG IV (19:06)
[2020-03-21 04:00] VITALS: BP 99/57; PULSE 58; RESP 18; TEMP 36.6; O2SAT 5
[2020-03-21 06:57] LABS: Alanine Aminotransferase 13 U/L (0-31); Albumin Level 3.3 g/dL (3.5-5.0); Alkaline Phosphatase 64 U/L (39-117); Aspartate Amino Transferase 22 U/L (5-31); Bilirubin Direct < 0.2 mg/dL (0.0-0.5); Bilirubin Total 0.4 mg/dL (0.0-1.0); Total Protein 6.3 g/dL (6.5-8.0)
[2020-03-21 07:57] VITALS: BP 98/64; PULSE 56; RESP 18; TEMP 36.3; O2SAT 97
[2020-03-21] MEDS: dexAMETHasone sod phosphate 4 MG/ML VIAL 6 MG IVPUSH (08:14)
[2020-03-21] MEDS: 0.9 % Sodium Chloride Flush 3 ML SYRINGE IVFLUSH ×2 (08:15→14:44)
[2020-03-21] MEDS: Heparin Sodium,Porcine 5,000 UNIT/ML VIAL 5000 UNIT SUBCUT ×2 (08:16→20:19)
[2020-03-21] MEDS: Dicyclomine HCl 10 MG CAPSULE PO ×4 (08:17→20:19)
[2020-03-21] MEDS: Omeprazole 40 MG CAPSULE.DR PO ×2 (08:17→20:19)
[2020-03-21] MEDS: clonazePAM 1 MG TABLET 2 MG PO ×3 (08:17→20:20)
[2020-03-21] MEDS: Sertraline HCL 100 MG TABLET 200 MG PO (08:17)
[2020-03-21] MEDS: Gabapentin 400 MG CAPSULE 800 MG PO ×2 (08:17→20:19)
[2020-03-21 10:57] VITALS: BP 93/56; PULSE 66; RESP 18; TEMP 36.4; O2SAT 93
--- NOTE | 2020-03-21 13:47 | HO.PM.IMPN ---
Subjective Subjective Date of Service: 03/21/20 Interval History: Patient seen and examined at bedside patient reported shortness of breath and weakness feeling dizzy Review of Systems Constitutional: + Fever, + Chills ENT/Mouth: + sore throat, No Rhinorrhea, No Swallowing Difficulty Eyes: No Eye Pain, No Swelling, No Redness Cardiovascular: + Chest Pain, + SOB, No Orthopnea, No Edema Respiratory: + Cough, No Sputum, No Wheezing, + dyspnea Gastrointestinal: + Nausea, No Vomiting, No Diarrhea, No abdominal Pain, No Hematochezia, No Melena Genitourinary: No Dysuria, No Urinary Frequency, No Hematuria Musculoskeletal: + joint pain, + Myalgias Skin: No Skin Lesions, No rash Neuro: + Weakness, No Numbness, No Dizziness, + Headache Psych: + Anxiety/Panic, No Depression Heme/Lymph: No Bruising, No Lymphadenopathy Endocrine: No Polyuria, No Polydipsia Physical Exam Vital Signs: Vital Signs: Last Vital Signs Temp 97.5 F 03/21/20 10:57 Pulse 66 03/21/20 10:57 Resp 18 03/21/20 10:57 BP 93/56 L 03/21/20 10:57 Pulse Ox 93 03/21/20 10:57 Body Mass Index 25.9 Const: General: cooperative, no acute distress and tired appearing Orientation/consciousness: patient oriented x3 Eyes: General: appearance normal, both eyes and all related structures Resp: Effort & Inspection: normal respiratory effort and able to speak in complete sentences Cardio: Rate: regular rate Rhythm: regular rhythm GI: Palpation (GI): Soft to palpation Auscultation: normal bowel sounds Skin: General skin exam: no rashes or lesions noted Neuro: General: patient oriented x3 Cognition (Neuro): normal cognition Extrem: General: Yes normal to inspection and Yes no pedal edema Objective Data Current Medications Generic Name Dose Route Start Last Admin Trade Name Freq PRN Reason Stop Dose Admin Acetaminophen 650 mg 03/16/20 21:11 03/19/20 08:19 Acetaminophen 325 Mg Tablet PO 650 mg Q6H PRN Administration Pain, Mild (Pain Scale 1-3) Acetaminophen/Codeine Phosphate 1 tab 03/16/20 21:11 03/21/20 06:03 Acetaminophen With Codeine # 3 Tablet PO 1 tab Q8H PRN Administration Pain (Scale Score 4-6) Clonazepam 2 mg 03/17/20 09:00 03/21/20 08:17 Clonazepam 1 Mg Tablet PO 2 mg TID [facility] Administration Dexamethasone Sodium Phosphate 6 mg 03/17/20 09:25 03/21/20 08:14 Dexamethasone Sod Phosphate 4 Mg/Ml Vial IVPUSH 6 mg DAILY [facility] Administration Dicyclomine HCl 10 mg 03/17/20 09:00 03/21/20 12:22 Dicyclomine Hcl 10 Mg Capsule PO 10 mg QID [facility] Administration Docusate Sodium 100 mg 03/16/20 21:11 Docusate Sodium 100 Mg Capsule PO DAILY PRN Constipation Gabapentin 800 mg 03/17/20 09:00 03/21/20 08:17 Gabapentin 400 Mg Capsule PO 800 mg BID [facility] Administration Heparin Sodium (Porcine) 5,000 unit 03/16/20 21:15 03/21/20 08:16 Heparin Sodium,Porcine 5,000 Unit/Ml Vial SUBCUT 5,000 unit Q12H [facility] Administration Hydroxyzine HCl 10 mg 03/16/20 21:11 Hydroxyzine Hcl 10 Mg Tablet PO TID PRN Itching Remdesivir 100 mg/ Sodium 230 mls @ 115 mls/hr 03/19/20 19:00 03/20/20 22:57 Chloride IV 03/22/20 20:59 Infused Q24H [facility] Infusion Non-Formulary Medication 4 mg 03/17/20 09:00 Fesoterodine [Toviaz] PO DAILY [facility] Omeprazole 40 mg 03/17/20 09:00 03/21/20 08:17 Omeprazole 40 Mg Capsule.Dr PO 40 mg BID [facility] Administration Ondansetron HCl 4 mg 03/16/20 21:11 Ondansetron Hcl 4 Mg/2 Ml Vial IVPUSH Q8H PRN Nausea and Vomiting Pharmacy Consult 1 each 03/16/20 17:34 Consult Rx Perform Med Rec MISCELLANE ONCE PRN Consult order Sertraline HCl 200 mg 03/17/20 09:00 03/21/20 08:17 Sertraline Hcl 100 Mg Tablet PO 200 mg DAILY [facility] Administration Sodium Chloride 3 ml 03/17/20 00:00 03/21/20 08:15 0.9 % Sodium Chloride Flush 3 Ml Syringe IVFLUSH 3 ml QSHIFT [facility] Administration Labs CBC & Chem 7: 03/17/20 07:37 03/20/20 05:28 Microbiology Microbiology Results: Microbiology 03/16/20 18:00 Blood - Venous Blood Culture - Preliminary No growth after 48 hours. 03/16/20 Unknown Blood - Venous Blood Culture - Preliminary No growth after 48 hours. Assessment and Plan (1) Sepsis: Status: Acute (2) Acute respiratory failure with hypoxia: Status: Acute (3) Pneumonia due to COVID-19 virus: Problem details: She has COVID and is ill less than a week She has hypoxia and is on 4 liters Status: Acute Assessment and Plan: 49-year-old female who presents to the hospital with worsening symptoms of COVID-19 infection Acute hypoxic respiratory failure Secondary to COVID-19 pneumonia complaining of chest pain Still reporting dyspnea and dizziness requiring oxygen currently requiring 5 L of oxygen continue IV dexamethasone continue remedesevir date 05/05 , monitor LFTs received plasma continue oxygen supplemental Continue supportive care DVT prophylaxis: Lovenox
[2020-03-21 15:27] VITALS: BP 96/63; PULSE 62; RESP 19; TEMP 36.7; O2SAT 95
[2020-03-21] MEDS: Remdesivir 100 MG in 0.9 % Sodium Chloride 230 ML 115 MG IV (18:08)
[2020-03-21 19:12] VITALS: BP 103/64; PULSE 92; RESP 19; TEMP 36.7; O2SAT 97
[2020-03-21 23:51] VITALS: BP 106/66; PULSE 53; RESP 18; TEMP 36.4; O2SAT 97
[2020-03-22] VITALS (7 sets, daily range): BP systolic 96–131; BP diastolic 54–78; PULSE 39–80; RESP 18–24; TEMP 36.4–36.8; O2SAT 89–97
[2020-03-22] MEDS: 0.9 % Sodium Chloride Flush 3 ML SYRINGE IVFLUSH ×4 (00:22→23:45)
[2020-03-22 07:31] LABS: Alanine Aminotransferase 13 U/L (0-31); Albumin Level 3.3 g/dL (3.5-5.0); Alkaline Phosphatase 72 U/L (39-117); Aspartate Amino Transferase 13 U/L (5-31); Bilirubin Direct 0.2 mg/dL (0.0-0.5); Bilirubin Total 0.3 mg/dL (0.0-1.0); Total Protein 5.9 g/dL (6.5-8.0)
[2020-03-22] MEDS: Gabapentin 400 MG CAPSULE 800 MG PO ×2 (07:36→21:27)
[2020-03-22] MEDS: Dicyclomine HCl 10 MG CAPSULE PO ×3 (07:36→17:19)
[2020-03-22] MEDS: Omeprazole 40 MG CAPSULE.DR PO ×2 (07:36→21:27)
[2020-03-22] MEDS: dexAMETHasone sod phosphate 4 MG/ML VIAL 6 MG IVPUSH (07:37)
[2020-03-22] MEDS: clonazePAM 1 MG TABLET 2 MG PO (07:37)
[2020-03-22] MEDS: Heparin Sodium,Porcine 5,000 UNIT/ML VIAL 5000 UNIT SUBCUT ×2 (07:37→21:27)
[2020-03-22] MEDS: Sertraline HCL 100 MG TABLET 200 MG PO (07:37)
--- NOTE | 2020-03-22 12:29 | MHC.CM.PN ---
DP Female 49 Covid+ Dc plan is home no services with Family proving transportation to home. Pt continues on 5L via NC. She reports dizziness, pleural pain and SOB. CM will follow to assess for change in DC needs. Pt will require a home o2 eval when s+s improve.
--- NOTE | 2020-03-22 15:18 | HO.PM.IMPN ---
Subjective Subjective Date of Service: 03/22/20 Interval History: Patient seen and examined at bedside patient reported shortness of breath and weakness little improved Review of Systems Constitutional: + Fever, + Chills ENT/Mouth: + sore throat, No Rhinorrhea, No Swallowing Difficulty Eyes: No Eye Pain, No Swelling, No Redness Cardiovascular: + Chest Pain, + SOB, No Orthopnea, No Edema Respiratory: + Cough, No Sputum, No Wheezing, + dyspnea Gastrointestinal: + Nausea, No Vomiting, No Diarrhea, No abdominal Pain, No Hematochezia, No Melena Genitourinary: No Dysuria, No Urinary Frequency, No Hematuria Musculoskeletal: + joint pain, + Myalgias Skin: No Skin Lesions, No rash Neuro: + Weakness, No Numbness, No Dizziness, + Headache Psych: + Anxiety/Panic, No Depression Heme/Lymph: No Bruising, No Lymphadenopathy Endocrine: No Polyuria, No Polydipsia Physical Exam Vital Signs: Vital Signs: Last Vital Signs Temp 97.7 F 03/22/20 11:22 Pulse 62 03/22/20 11:22 Resp 22 H 03/22/20 11:22 BP 98/54 L 03/22/20 11:22 Pulse Ox 93 03/22/20 11:22 Body Mass Index 25.9 Const: General: cooperative, no acute distress and tired appearing Orientation/consciousness: patient oriented x3 Eyes: General: appearance normal, both eyes and all related structures Resp: Effort & Inspection: normal respiratory effort and able to speak in complete sentences Cardio: Rate: regular rate Rhythm: regular rhythm GI: Palpation (GI): Soft to palpation Auscultation: normal bowel sounds Skin: General skin exam: no rashes or lesions noted Neuro: General: patient oriented x3 Cognition (Neuro): normal cognition Extrem: General: Yes normal to inspection and Yes no pedal edema Objective Data Current Medications Generic Name Dose Route Start Last Admin Trade Name Freq PRN Reason Stop Dose Admin Acetaminophen 650 mg 03/16/20 21:11 03/19/20 08:19 Acetaminophen 325 Mg Tablet PO 650 mg Q6H PRN Administration Pain, Mild (Pain Scale 1-3) Dexamethasone Sodium Phosphate 6 mg 03/17/20 09:25 03/22/20 07:37 Dexamethasone Sod Phosphate 4 Mg/Ml Vial IVPUSH 6 mg DAILY [facility] Administration Dicyclomine HCl 10 mg 03/17/20 09:00 03/22/20 13:54 Dicyclomine Hcl 10 Mg Capsule PO 10 mg QID [facility] Administration Docusate Sodium 100 mg 03/16/20 21:11 Docusate Sodium 100 Mg Capsule PO DAILY PRN Constipation Gabapentin 800 mg 03/17/20 09:00 03/22/20 07:36 Gabapentin 400 Mg Capsule PO 800 mg BID [facility] Administration Heparin Sodium (Porcine) 5,000 unit 03/16/20 21:15 03/22/20 07:37 Heparin Sodium,Porcine 5,000 Unit/Ml Vial SUBCUT 5,000 unit Q12H [facility] Administration Hydroxyzine HCl 10 mg 03/16/20 21:11 Hydroxyzine Hcl 10 Mg Tablet PO TID PRN Itching Remdesivir 100 mg/ Sodium 230 mls @ 115 mls/hr 03/19/20 19:00 03/21/20 20:25 Chloride IV 03/22/20 20:59 Infused Q24H [facility] Infusion Non-Formulary Medication 4 mg 03/17/20 09:00 Fesoterodine [Toviaz] PO DAILY [facility] Omeprazole 40 mg 03/17/20 09:00 03/22/20 07:36 Omeprazole 40 Mg Capsule. PO 40 mg BID [facility] Administration Ondansetron HCl 4 mg 03/16/20 21:11 Ondansetron Hcl 4 Mg/2 Ml Vial IVPUSH Q8H PRN Nausea and Vomiting Pharmacy Consult 1 each 03/16/20 17:34 Consult Rx Perform Med Rec MISCELLANE ONCE PRN Consult order Sertraline HCl 200 mg 03/17/20 09:00 03/22/20 07:37 Sertraline Hcl 100 Mg Tablet PO 200 mg DAILY [facility] [place] Administration Sodium Chloride 3 ml 03/17/20 00:00 03/22/20 07:38 0.9 % Sodium Chloride Flush 3 Ml Syringe IVFLUSH 3 ml QSHIFT [facility] Administration Labs CBC & Chem 7: 03/17/20 07:37 03/20/20 05:28 Microbiology Microbiology Results: Microbiology 03/16/20 18:00 Blood - Venous Blood Culture - Final No growth after 5 days. 03/16/20 Unknown Blood - Venous Blood Culture - Final No growth after 5 days. Assessment and Plan (1) Sepsis: Status: Acute (2) Acute respiratory failure with hypoxia: Status: Acute (3) Pneumonia due to COVID-19 virus: Status: Acute Assessment and Plan: 49-year-old female who presents to the hospital with worsening symptoms of COVID-19 infection Acute hypoxic respiratory failure Secondary to COVID-19 pneumonia complaining of chest pain Still reporting dyspnea and dizziness requiring oxygen currently requiring 4 L of oxygen continue IV dexamethasone continue remedesevir date 06/05 , monitor LFTs received plasma continue oxygen supplemental Continue supportive care DVT prophylaxis: Lovenox
[2020-03-22] MEDS: Remdesivir 100 MG in 0.9 % Sodium Chloride 230 ML 115 MG IV (18:35)
--- NOTE | 2020-03-22 22:53 | ECG_ITS ---
Test Reason : bradycardia Blood Pressure : / mmHG Vent. Rate : 047 BPM Atrial Rate : 047 BPM P-R Int : 150 ms QRS Dur : 088 ms QT Int : 468 ms P-R-T Axes : 043 051 054 degrees QTc Int : 414 ms Artifact in tracing Sinus bradycardia Otherwise normal ECG COMPARED TO ekg Mar ventricular rate slower Referred By: Jerzy Handy Electronically Signed By:CYNTHIA HERNANDEZ
--- NOTE | 2020-03-22 23:39 | PC.NURSE ---
Bradycardia : heart rate 38-47 tonight. pt reports being very tired, reports dizziness with getting up, standing, walking. Reoprts some sob on 4l via NC at rest , O2 sat 95%. Rn reported it to DR ritchie parmar, EKG ordered and done. Pacer pads are at the bedside. Pt educated to report any worsening symptoms to RN.
[2020-03-23] VITALS (8 sets, daily range): BP systolic 89–117; BP diastolic 57–77; PULSE 50–70; RESP 18–20; TEMP 36.4–36.8; O2SAT 94–99; BMI 25.4
[2020-03-23 07:10] LABS: Alanine Aminotransferase 16 U/L (0-31); Albumin Level 3.2 g/dL (3.5-5.0); Alkaline Phosphatase 77 U/L (39-117); Aspartate Amino Transferase 20 U/L (5-31); Bilirubin Direct 0.2 mg/dL (0.0-0.5); Bilirubin Total 0.3 mg/dL (0.0-1.0)
[2020-03-23] MEDS: 0.9 % Sodium Chloride Flush 3 ML SYRINGE IVFLUSH ×3 (08:33→23:36)
[2020-03-23] MEDS: Dicyclomine HCl 10 MG CAPSULE PO ×4 (08:38→21:02)
[2020-03-23] MEDS: Sertraline HCL 100 MG TABLET 200 MG PO (08:38)
[2020-03-23] MEDS: Omeprazole 40 MG CAPSULE.DR PO ×2 (08:38→21:01)
[2020-03-23] MEDS: Gabapentin 400 MG CAPSULE 800 MG PO ×2 (08:38→21:01)
[2020-03-23] MEDS: Heparin Sodium,Porcine 5,000 UNIT/ML VIAL 5000 UNIT SUBCUT ×2 (08:38→21:02)
[2020-03-23] MEDS: dexAMETHasone sod phosphate 4 MG/ML VIAL 6 MG IVPUSH (09:43)
[2020-03-23] MEDS: Docusate Sodium 100 MG CAPSULE PO (12:29)
--- NOTE | 2020-03-23 14:06 | P.PNIM_ITS ---
Subjective Subjective Date of Service: 03/23/20 Interval History: Patient seen and examined at bedside patient reported shortness of breath and weakness and dizziness slow improved Continues to require 5-6 L Review of Systems Constitutional: + Fever, + Chills ENT/Mouth: + sore throat, No Rhinorrhea, No Swallowing Difficulty Eyes: No Eye Pain, No Swelling, No Redness Cardiovascular: + Chest Pain, + SOB, No Orthopnea, No Edema Respiratory: + Cough, No Sputum, No Wheezing, + dyspnea Gastrointestinal: + Nausea, No Vomiting, No Diarrhea, No abdominal Pain, No Hematochezia, No Melena Genitourinary: No Dysuria, No Urinary Frequency, No Hematuria Musculoskeletal: + joint pain, + Myalgias Skin: No Skin Lesions, No rash Neuro: + Weakness, No Numbness, No Dizziness, + Headache Psych: + Anxiety/Panic, No Depression Heme/Lymph: No Bruising, No Lymphadenopathy Endocrine: No Polyuria, No Polydipsia Physical Exam Vital Signs: Vital Signs: Last Vital Signs Temp 97.8 F 03/23/20 12:00 Pulse 64 03/23/20 12:00 Resp 20 03/23/20 12:00 BP 89/63 L 03/23/20 12:00 Pulse Ox 96 03/23/20 12:00 Body Mass Index 25.4 Const: General: cooperative, no acute distress and tired appearing Orientation/consciousness: patient oriented x3 Eyes: General: appearance normal, both eyes and all related structures Resp: Effort & Inspection: normal respiratory effort and able to speak in complete sentences Cardio: Rate: regular rate Rhythm: regular rhythm GI: Palpation (GI): Soft to palpation Auscultation: normal bowel sounds Skin: General skin exam: no rashes or lesions noted Neuro: General: patient oriented x3 Cognition (Neuro): normal cognition Extrem: General: Yes normal to inspection and Yes no pedal edema Objective Data Current Medications Generic Name Dose Route Start Last Admin Trade Name Freq PRN Reason Stop Dose Admin Acetaminophen 650 mg 03/16/20 21:11 03/19/20 08:19 Acetaminophen 325 Mg Tablet PO 650 mg Q6H PRN Administration Pain, Mild (Pain Scale 1-3) Dexamethasone Sodium Phosphate 6 mg 03/17/20 09:25 03/23/20 09:43 Dexamethasone Sod Phosphate 4 Mg/Ml Vial IVPUSH 6 mg DAILY [facility] Administration Dicyclomine HCl 10 mg 03/17/20 09:00 03/23/20 12:27 Dicyclomine Hcl 10 Mg Capsule PO 10 mg QID [facility] Administration Docusate Sodium 100 mg 03/16/20 21:11 03/23/20 12:29 Docusate Sodium 100 Mg Capsule PO 100 mg DAILY PRN Administration Constipation Gabapentin 800 mg 03/17/20 09:00 03/23/20 08:38 Gabapentin 400 Mg Capsule PO 800 mg BID [facility] Administration Heparin Sodium (Porcine) 5,000 unit 03/16/20 21:15 03/23/20 08:38 Heparin Sodium,Porcine 5,000 Unit/Ml Vial SUBCUT 5,000 unit Q12H [facility] Administration Hydroxyzine HCl 10 mg 03/16/20 21:11 Hydroxyzine Hcl 10 Mg Tablet PO TID PRN Itching Non-Formulary Medication 4 mg 03/17/20 09:00 Fesoterodine [Toviaz] PO DAILY [facility] Omeprazole 40 mg 03/17/20 09:00 03/23/20 08:38 Omeprazole 40 Mg Capsule.Dr PO 40 mg BID [facility] Administration Ondansetron HCl 4 mg 03/16/20 21:11 Ondansetron Hcl 4 Mg/2 Ml Vial IVPUSH Q8H PRN Nausea and Vomiting Pharmacy Consult 1 each 03/16/20 17:34 Consult Rx Perform Med Rec MISCELLANE ONCE PRN Consult order Sertraline HCl 200 mg 03/17/20 09:00 03/23/20 08:38 Sertraline Hcl 100 Mg Tablet PO 200 mg DAILY [facility] Administration Sodium Chloride 3 ml 03/17/20 00:00 03/23/20 08:33 0.9 % Sodium Chloride Flush 3 Ml Syringe IVFLUSH 3 ml QSHIFT [facility] Administration Labs CBC & Chem 7: 03/17/20 07:37 03/20/20 05:28 Microbiology Microbiology Results: Microbiology 03/16/20 18:00 Blood - Venous Blood Culture - Final No growth after 5 days. 03/16/20 Unknown Blood - Venous Blood Culture - Final No growth after 5 days. Assessment and Plan (1) Sepsis: Status: Acute (2) Acute respiratory failure with hypoxia: Status: Acute (3) Pneumonia due to COVID-19 virus: Status: Acute Assessment and Plan: 49-year-old female who presents to the hospital with worsening symptoms of COVID-19 infection Acute hypoxic respiratory failure Secondary to COVID-19 pneumonia complaining of chest pain Still reporting dyspnea and dizziness requiring oxygen currently requiring 5 L of oxygen Weaned down as tolerated continue IV dexamethasone on remedesevir date 07/05 , monitor LFTs received plasma continue oxygen supplemental Continue supportive care DVT prophylaxis: Lovenox
[2020-03-24 03:50] VITALS: BP 96/52; PULSE 76; RESP 18; TEMP 37.1; O2SAT 97
[2020-03-24 07:05] LABS: MANUAL DIFF FLAG NO
[2020-03-24 07:11] LABS: Basophils Absolute Auto 0.1 X10*3/uL (0.0-0.2); Basophils Percent Auto 0.8 % (0-2); Eosinophils Absolute Auto 0.1 X10*3/uL (0.0-0.4); Eosinophils Percent Auto 1.2 % (0-4); Hemoglobin 12.7 g/dl (12.0-16.0); Imm Gran Abs Auto 0.29 X10*3/uL (0.00-0.03); Imm Gran Pct Auto 2.9 % (0.0-0.4); Lymphocytes Absolute Auto 1.9 X10*3/uL (1.2-4.9); Lymphocytes Percent Auto 18.8 % (20-40); Mean Corpuscular HGB Conc 31.8 g/dl (31.0-35.0); Mean Corpuscular Hemoglobin 29.3 pg (27.0-33.0); Mean Corpuscular Volume 92.2 fL (80-98); Mean Platelet Volume 9.2 fL (9.4-12.3); Monocytes Absolute Auto 0.7 X10*3/uL (0.1-1.2); Monocytes Percent Auto 7.2 % (2-11); Neutrophils Percent Auto 69.1 % (45-73); Platelet Count 547 X10*3/uL (160-400); Red Blood Count 4.34 X10*6/uL (4.20-5.50); Red Cell Distribution Width 12.8 % (11.0-16.0); White Blood Count 10.1 X10*3/uL (4.8-10.8)
[2020-03-24 07:38] LABS: Anion Gap 13 (12-20); Blood Urea Nitrogen 15 mg/dL (9-16); Calcium 8.9 mg/dL (8.4-10.2); Carbon Dioxide 29 mmol/L (22-29); Chloride 101 mmol/L (96-108); Creatinine Clr Calc Pharmacy 97.2; Estimated Glomerular Filt Rate > 60; Glucose Random 82 mg/dL (60-115); Potassium 4.8 mmol/l (3.3-5.1); Sodium 138 mmol/L (135-145)
[2020-03-24] MEDS: Dicyclomine HCl 10 MG CAPSULE PO ×4 (07:55→20:31)
[2020-03-24] MEDS: dexAMETHasone sod phosphate 4 MG/ML VIAL 6 MG IVPUSH (07:55)
[2020-03-24] MEDS: Gabapentin 400 MG CAPSULE 800 MG PO ×2 (07:55→20:31)
[2020-03-24] MEDS: 0.9 % Sodium Chloride Flush 3 ML SYRINGE IVFLUSH ×4 (07:55→20:31)
[2020-03-24] MEDS: Sertraline HCL 100 MG TABLET 200 MG PO (07:55)
[2020-03-24] MEDS: Omeprazole 40 MG CAPSULE.DR PO ×2 (07:55→20:31)
[2020-03-24] MEDS: Heparin Sodium,Porcine 5,000 UNIT/ML VIAL 5000 UNIT SUBCUT ×2 (07:56→20:31)
[2020-03-24 08:00] VITALS: BP 107/56; PULSE 66; RESP 18; TEMP 36.6; O2SAT 94
[2020-03-24 12:12] VITALS: RESP 20; TEMP 36.4; O2SAT 94
[2020-03-24 12:16] VITALS: BP 104/58
--- NOTE | 2020-03-24 13:35 | MHC.CM.PN ---
DP Home no services. Dispo will depend on recovery from Covid. She continues on supplemental oxygen. She has Paddles @ the bedside; because she was Bradycardic over night. The Pt has been anxious r/t obtaining Housing. A letter was faxed at her request to the housing authority. Once documentation of hospitalization was received, Papers for signature were sent Pt signed, stress relieved. CM will follow.
--- NOTE | 2020-03-24 14:20 | HO.PM.IMPN ---
Subjective Subjective Date of Service: 03/24/20 Interval History: Patient seen and examined at bedside patient reported shortness of breath and weakness Review of Systems Constitutional: + Fever, + Chills ENT/Mouth: + sore throat, No Rhinorrhea, No Swallowing Difficulty Eyes: No Eye Pain, No Swelling, No Redness Cardiovascular: + Chest Pain, + SOB, No Orthopnea, No Edema Respiratory: + Cough, No Sputum, No Wheezing, + dyspnea Gastrointestinal: + Nausea, No Vomiting, No Diarrhea, No abdominal Pain, No Hematochezia, No Melena Genitourinary: No Dysuria, No Urinary Frequency, No Hematuria Musculoskeletal: + joint pain, + Myalgias Skin: No Skin Lesions, No rash Neuro: + Weakness, No Numbness, No Dizziness, + Headache Psych: + Anxiety/Panic, No Depression Heme/Lymph: No Bruising, No Lymphadenopathy Endocrine: No Polyuria, No Polydipsia Physical Exam Vital Signs: Vital Signs: Last Vital Signs Temp 97.6 F 03/24/20 12:12 Pulse 66 03/24/20 08:00 Resp 20 03/24/20 12:12 BP 104/58 L 03/24/20 12:16 Pulse Ox 94 03/24/20 12:12 Body Mass Index 25.4 Const: General: cooperative, no acute distress and tired appearing Orientation/consciousness: patient oriented x3 Eyes: General: appearance normal, both eyes and all related structures Resp: Effort & Inspection: normal respiratory effort and able to speak in complete sentences Cardio: Rate: regular rate Rhythm: regular rhythm GI: Palpation (GI): Soft to palpation Auscultation: normal bowel sounds Skin: General skin exam: no rashes or lesions noted Neuro: General: patient oriented x3 Cognition (Neuro): normal cognition Extrem: General: Yes normal to inspection and Yes no pedal edema Objective Data Current Medications Generic Name Dose Route Start Last Admin Trade Name Freq PRN Reason Stop Dose Admin Acetaminophen 650 mg 03/16/20 21:11 03/19/20 08:19 Acetaminophen 325 Mg Tablet PO 650 mg Q6H PRN Administration Pain, Mild (Pain Scale 1-3) Dexamethasone Sodium Phosphate 6 mg 03/17/20 09:25 03/24/20 07:55 Dexamethasone Sod Phosphate 4 Mg/Ml Vial IVPUSH 6 mg DAILY KARTHIK Administration Dicyclomine HCl 10 mg 03/17/20 09:00 03/24/20 13:44 Dicyclomine Hcl 10 Mg Capsule PO 10 mg QID KARTHIK Administration Docusate Sodium 100 mg 03/16/20 21:11 03/23/20 12:29 Docusate Sodium 100 Mg Capsule PO 100 mg DAILY PRN Administration Constipation Gabapentin 800 mg 03/17/20 09:00 03/24/20 07:55 Gabapentin 400 Mg Capsule PO 800 mg BID KARTHIK Administration Heparin Sodium (Porcine) 5,000 unit 03/16/20 21:15 03/24/20 07:56 Heparin Sodium,Porcine 5,000 Unit/Ml Vial SUBCUT 5,000 unit Q12H KARTHIK Administration Hydroxyzine HCl 10 mg 03/16/20 21:11 Hydroxyzine Hcl 10 Mg Tablet PO TID PRN Itching Non-Formulary Medication 4 mg 03/17/20 09:00 Fesoterodine [Toviaz] PO DAILY KARTHIK Omeprazole 40 mg 03/17/20 09:00 03/24/20 07:55 Omeprazole 40 Mg Capsule. PO 40 mg BID KARTHIK Administration Ondansetron HCl 4 mg 03/16/20 21:11 Ondansetron Hcl 4 Mg/2 Ml Vial IVPUSH Q8H PRN Nausea and Vomiting Pharmacy Consult 1 each 03/16/20 17:34 Consult Rx Perform Med Rec MISCELLANE ONCE PRN Consult order Sertraline HCl 200 mg 03/17/20 09:00 03/24/20 07:55 Sertraline Hcl 100 Mg Tablet PO 200 mg DAILY KARTHIK Administration Sodium Chloride 3 ml 03/17/20 00:00 03/24/20 07:55 0.9 % Sodium Chloride Flush 3 Ml Syringe IVFLUSH 3 ml QSHIFT KARTHIK Administration Labs CBC & Chem 7: 03/24/20 06:19 03/24/20 06:19 Microbiology Microbiology Results: Microbiology 03/16/20 18:00 Blood - Venous Blood Culture - Final No growth after 5 days. 03/16/20 Unknown Blood - Venous Blood Culture - Final No growth after 5 days. Assessment and Plan (1) Sepsis: Status: Acute (2) Acute respiratory failure with hypoxia: Status: Acute (3) Pneumonia due to COVID-19 virus: Status: Acute Assessment and Plan: 49-year-old female who presents to the hospital with worsening symptoms of COVID-19 infection Acute hypoxic respiratory failure Secondary to COVID-19 pneumonia Still reporting dyspnea and requiring oxygen currently requiring 5 L of oxygen Weaned down as tolerated continue IV dexamethasone daily 10/10 Received remedesevir date 07/05 , monitor LFTs received plasma continue oxygen supplemental Continue supportive care DVT prophylaxis: Lovenox
[2020-03-24 15:36] VITALS: BP 101/55; PULSE 64; RESP 18; TEMP 36.8; O2SAT 96
[2020-03-24] MEDS: Acetaminophen 325 MG TABLET 650 MG PO (17:00)
[2020-03-24 19:25] VITALS: BP 104/64; PULSE 67; RESP 18; TEMP 36.7; O2SAT 97
[2020-03-25] VITALS (8 sets, daily range): BP systolic 101–108; BP diastolic 55–72; PULSE 59–68; RESP 16–19; TEMP 35.9–36.6; O2SAT 84–100
[2020-03-25] MEDS: Omeprazole 40 MG CAPSULE.DR PO ×2 (08:36→20:23)
[2020-03-25] MEDS: dexAMETHasone sod phosphate 4 MG/ML VIAL 6 MG IVPUSH (08:36)
[2020-03-25] MEDS: Sertraline HCL 100 MG TABLET 200 MG PO (08:36)
[2020-03-25] MEDS: Heparin Sodium,Porcine 5,000 UNIT/ML VIAL 5000 UNIT SUBCUT ×2 (08:36→20:24)
[2020-03-25] MEDS: Gabapentin 400 MG CAPSULE 800 MG PO ×2 (08:36→20:23)
[2020-03-25] MEDS: Dicyclomine HCl 10 MG CAPSULE PO ×4 (08:36→20:23)
[2020-03-25] MEDS: 0.9 % Sodium Chloride Flush 3 ML SYRINGE IVFLUSH ×3 (08:36→20:24)
--- NOTE | 2020-03-25 08:48 | PC.NURSE ---
Pt weaned from 2L to 1L O2 via NC with good response. O2 sats 94-95% . Will continue to monitor.
--- NOTE | 2020-03-25 13:54 | P.PNIM_ITS ---
Subjective Subjective Date of Service: 03/25/20 Interval History: the patient was seen and evaluated this morning Laying in bed, feels comfortable Denies any fever, chills Complaining of shortness of breath with minimal exertion Dropped to 80s on room air No reported other overnight events. Systemic review: No fever, chills or weakness No chest pain, palpitation Significant exertional shortness of breath or coughing No abdominal pain, nausea or vomiting No urinary symptoms No any rash or wounds Physical Exam Vital Signs: Vital Signs: Last Vital Signs Temp 97.9 F 03/25/20 12:00 Pulse 68 03/25/20 12:00 Resp 18 03/25/20 12:00 BP 102/55 L 03/25/20 12:00 Pulse Ox 98 03/25/20 12:00 Body Mass Index 25.4 Constitutional : Alert, oriented, not in distress Neck : Normal inspection, Supple Cardiovascular : RRR, S1 S2, no lower extremity edema Respiratory : Good bilateral chest wall movement, not in respiratory distress Gastrointestinal: soft, lax, Normal bowel sounds, Non tender Skin : Warm/Dry, No rash Neurological : Alert & oriented x3, No focal deficit Objective Data Current Medications Generic Name Dose Route Start Last Admin Trade Name Freq PRN Reason Stop Dose Admin Acetaminophen 650 mg 03/16/20 21:11 03/24/20 17:00 Acetaminophen 325 Mg Tablet PO 650 mg Q6H PRN Administration Pain, Mild (Pain Scale 1-3) Dexamethasone Sodium Phosphate 6 mg 03/17/20 09:25 03/25/20 08:36 Dexamethasone Sod Phosphate 4 Mg/Ml Vial IVPUSH 6 mg DAILY KARTHIK Administration Dicyclomine HCl 10 mg 03/17/20 09:00 03/25/20 13:12 Dicyclomine Hcl 10 Mg Capsule PO 10 mg QID KARTHIK Administration Docusate Sodium 100 mg 03/16/20 21:11 03/23/20 12:29 Docusate Sodium 100 Mg Capsule PO 100 mg DAILY PRN Administration Constipation Gabapentin 800 mg 03/17/20 09:00 03/25/20 08:36 Gabapentin 400 Mg Capsule PO 800 mg BID KARTHIK Administration Heparin Sodium (Porcine) 5,000 unit 03/16/20 21:15 03/25/20 08:36 Heparin Sodium,Porcine 5,000 Unit/Ml Vial SUBCUT 5,000 unit Q12H KARTHIK Administration Hydroxyzine HCl 10 mg 03/16/20 21:11 Hydroxyzine Hcl 10 Mg Tablet PO TID PRN Itching Non-Formulary Medication 4 mg 03/17/20 09:00 Fesoterodine [Toviaz] PO DAILY [facility] Omeprazole 40 mg 03/17/20 09:00 03/25/20 08:36 Omeprazole 40 Mg Capsule.Dr PO 40 mg BID KARTHIK Administration Ondansetron HCl 4 mg 03/16/20 21:11 Ondansetron Hcl 4 Mg/2 Ml Vial IVPUSH Q8H PRN Nausea and Vomiting Pharmacy Consult 1 each 03/16/20 17:34 Consult Rx Perform Med Rec MISCELLANE ONCE PRN Consult order Sertraline HCl 200 mg 03/17/20 09:00 03/25/20 08:36 Sertraline Hcl 100 Mg Tablet PO 200 mg DAILY KARTHIK Administration Sodium Chloride 3 ml 03/17/20 00:00 03/25/20 08:36 0.9 % Sodium Chloride Flush 3 Ml Syringe IVFLUSH 3 ml QSHIFT KARTHIK Administration Labs CBC & Chem 7: 03/24/20 06:19 03/24/20 06:19 Microbiology Microbiology Results: Microbiology 03/16/20 18:00 Blood - Venous Blood Culture - Final No growth after 5 days. 03/16/20 Unknown Blood - Venous Blood Culture - Final No growth after 5 days. Assessment and Plan (1) Sepsis: Status: Acute (2) Acute respiratory failure with hypoxia: Status: Acute (3) Pneumonia due to COVID-19 virus: Status: Acute Assessment and Plan: 49-year-old female who presents to the hospital with worsening symptoms of COVID-19 infection Acute hypoxic respiratory failure Secondary to COVID-19 pneumonia O2 sats dropped to 80s on room air Weaned down as tolerated, to get home to [facility] continue IV dexamethasone daily 10/10 Received remedesevir date 07/05 , monitor LFTs received plasma continue oxygen supplemental Continue supportive care DVT prophylaxis: Lovenox
[2020-03-26] VITALS: BP 113/72; PULSE 54; RESP 18; TEMP 36.3; O2SAT 96
[2020-03-26 03:48] VITALS: BP 111/66; PULSE 79; RESP 18; TEMP 36.4; O2SAT 97
[2020-03-26] MEDS: Acetaminophen 325 MG TABLET 650 MG PO ×2 (05:21→12:40)
[2020-03-26 06:00] VITALS: BMI 24.8
[2020-03-26 07:46] VITALS: BP 120/67; PULSE 59; RESP 20; TEMP 37.1; O2SAT 94
[2020-03-26 08:06] LABS: Anion Gap 18 (12-20); Blood Urea Nitrogen 15 mg/dL (9-16); Calcium 8.7 mg/dL (8.4-10.2); Carbon Dioxide 22 mmol/L (22-29); Chloride 104 mmol/L (96-108); Creatinine Clr Calc Pharmacy 100.2; Estimated Glomerular Filt Rate > 60; Glucose Random 76 mg/dL (60-115); Potassium 4.8 mmol/l (3.3-5.1); Sodium 139 mmol/L (135-145)
[2020-03-26] MEDS: Sertraline HCL 100 MG TABLET 200 MG PO (09:16)
[2020-03-26] MEDS: 0.9 % Sodium Chloride Flush 3 ML SYRINGE IVFLUSH (09:16)
[2020-03-26] MEDS: dexAMETHasone sod phosphate 4 MG/ML VIAL 6 MG IVPUSH (09:16)
[2020-03-26] MEDS: Heparin Sodium,Porcine 5,000 UNIT/ML VIAL 5000 UNIT SUBCUT (09:17)
[2020-03-26] MEDS: Dicyclomine HCl 10 MG CAPSULE PO ×2 (09:17→12:40)
[2020-03-26] MEDS: Gabapentin 400 MG CAPSULE 800 MG PO (09:17)
[2020-03-26] MEDS: Omeprazole 40 MG CAPSULE.DR PO (09:17)
[2020-03-26 11:20] VITALS: PULSE 66; PULSE 88; O2SAT 92; O2SAT 95
--- NOTE | 2020-03-26 11:33 | PM.DS ---
DS: Providers Provider Date of Service: 03/26/20 Date of admission: 03/16/20 21:11 Primary care physician: Unknown Physician Consults: 03/18/20 08:35 Consult to Infectious Diseases Routine Consulting Provider: Ana Thomas Reason for consultation: covid pneumonia DS: Diagnosis Discharge Diagnosis (1) Sepsis: Status: Acute (2) Acute respiratory failure with hypoxia: Status: Acute (3) Pneumonia due to COVID-19 virus: Status: Acute DS: Medications Discharge Medications Home Medications: Home Medications Medication Instructions Recorded Confirmed acetaminophen 300 mg-codeine 30 mg 1 tab PO Q8H PRN 02/10/20 03/16/20 tablet acetaminophen 325 mg capsule 325 mg PO QID PRN 02/10/20 03/16/20 clonazepam 2 mg tablet 2 mg PO TID 02/10/20 03/16/20 dicyclomine 10 mg capsule 10 mg PO QID 02/10/20 03/16/20 fesoterodine 4 mg tablet,extended 4 mg PO DAILY 02/10/20 03/16/20 release 24 hr gabapentin 800 mg tablet 800 mg PO BID 02/10/20 03/16/20 hydroxyzine HCl 10 mg tablet 10 mg PO TID PRN 02/10/20 03/16/20 omeprazole 40 mg capsule,delayed 40 mg PO BID 02/10/20 03/16/20 release sertraline 100 mg tablet 200 mg PO DAILY tab 02/10/20 03/16/20 DS: Summary Hospital Course Hospital Course: Admission note HPI This is a 49-year-old female with no significant past medical history who presents to the hospital with complaints of worsening shortness of breath. Patient was diagnosed with COVID-19 on Friday the 13 of March and presents today stating that her symptoms are worsening. She is complaining of headache, shortness of breath, worsening cough, chest pain with coughing, body aches, and low appetite. She otherwise denies any nausea vomiting, no abdominal pain, no diarrhea constipation, no urinary symptoms and no lower extremity edema. On arrival to the ED found to be hypoxic with an oxygen level of 89% on room air. She also has a temp of 101.4?, pulse rate of 115, respiratory rate of 24 blood pressure of 129/71 Labs are significant for WBC count of 7.4, hemoglobin of 12.7, PT of 16.3, INR of 1.4, total bili of 1.4, AST of 36, COVID-19 positive, chest x-ray shows Chest CT angiogram shows no evidence of pulmonary embolism, patchy peripheral airspace opacities Hospital course The patient was admitted to the hospital for treatment of Acute hypoxic respiratory failure Secondary to COVID-19 pneumonia. Received total of 10 days of IV dexamethasone , Received remedesevir date 07/05 and received plasma. She was weaned off the oxygen during the hospital stay and evaluated for home oxygen the day of discharge were she maintained her oxygen level around 92 with ambulation on room air. Time Spent with Patient Time attestation: Total time spent providing and/or coordinating discharge services: Discharge coordination time: Greater than 30 minutes Physical Exam Vital Signs: Vital Signs: Last Vital Signs Temp 98.8 F 03/26/20 07:46 Pulse 59 03/26/20 07:46 Resp 20 03/26/20 07:46 BP 120/67 03/26/20 07:46 Pulse Ox 94 03/26/20 07:46 Body Mass Index 24.8 Const: Other: Constitutional : Alert, oriented, not in distress Neck : Normal inspection, Supple Cardiovascular : RRR, S1 S2, no lower extremity edema Respiratory : Good bilateral air entry, no crackles, wheezes or rhonchi Gastrointestinal: soft, lax, Normal bowel sounds, Non tender Skin : Warm/Dry, No rash Neurological : Alert & oriented x3, No focal deficit DS: Data Data Completed and Pending Labs on day of discharge: Laboratory Tests 03/16/20 03/16/20 03/16/20 17:44 17:44 17:44 WBC RBC Hgb Hct MCV MCH MCHC RDW Plt Count MPV Immature Gran % (Auto) Neut % (Auto) Lymph % (Auto) Appling % (Auto) Eos % (Auto) Baso % (Auto) Lymph # (Auto) Appling # (Auto) Eos # (Auto) Baso # (Auto) Abs Immat Gran (auto) Absolute Neuts (auto) Absolute Nucleated RBC Nucleated RBC % (auto) Smear Tech's Comments PT 16.3 H INR 1.4 H APTT 34.6 D-Dimer 457 Sodium 135 Potassium 4.2 Chloride 102 Carbon Dioxide 21 L Anion Gap 16 BUN 10 Creatinine 0.68 Estim Creat Clear Calc 97.2 Estimated GFR > 60 Random Glucose 118 H Lactic Acid 0.9 Calcium 8.2 L Total Bilirubin 1.4 H Direct Bilirubin 0.7 H AST 36 H ALT 26 Alkaline Phosphatase 86 Troponin I High Sens B-Natriuretic Peptide Total Protein 7.1 Albumin 4.1 Procalcitonin COVID-19 ([facility]BELLA) COVID-19 Clin [facility] 03/16/20 03/16/20 03/16/20 17:44 17:44 20:21 WBC RBC Hgb Hct MCV MCH MCHC RDW Plt Count MPV Immature Gran % (Auto) Neut % (Auto) Lymph % (Auto) Appling % (Auto) Eos % (Auto) Baso % (Auto) Lymph # (Auto) Appling # (Auto) Eos # (Auto) Baso # (Auto) Abs Immat Gran (auto) Absolute Neuts (auto) Absolute Nucleated RBC Nucleated RBC % (auto) Smear Tech's Comments PT INR APTT D-Dimer Sodium Potassium Chloride Carbon Dioxide Anion Gap BUN Creatinine Estim Creat Clear Calc Estimated GFR Random Glucose Lactic Acid Calcium Total Bilirubin Direct Bilirubin AST ALT Alkaline Phosphatase Troponin I High Sens 3.7 B-Natriuretic Peptide < 10 Total Protein Albumin Procalcitonin 0.16 COVID-19 (MARBELLA) Positive A COVID-19 Clin Com See Note 03/16/20 03/17/20 03/17/20 Unknown 07:37 07:37 WBC 7.4 5.0 RBC 4.21 4.12 L Hgb 12.7 12.4 Hct 37.8 38.0 MCV 89.8 92.2 MCH 30.2 30.1 MCHC 33.6 32.6 RDW 12.4 12.5 Plt Count 219 220 MPV 10.1 9.8 Immature Gran % (Auto) 0.3 0.4 Neut % (Auto) 90.3 H 82.8 H Lymph % (Auto) 5.6 L 10.4 L Appling % (Auto) 3.4 6.2 Eos % (Auto) 0.1 0.0 Baso % (Auto) 0.3 0.2 Lymph # (Auto) 0.4 L 0.5 L Appling # (Auto) 0.3 0.3 Eos # (Auto) 0.0 0.0 Baso # (Auto) 0.0 0.0 Abs Immat Gran (auto) 0.02 0.02 Absolute Neuts (auto) 6.7 4.1 Absolute Nucleated RBC 0.000 0.000 Nucleated RBC % (auto) 0.0 0.0 Smear Tech's Comments VERIFIED VERIFIED PT INR APTT D-Dimer Sodium 139 Potassium 4.3 Chloride 106 Carbon Dioxide 23 Anion Gap 14 BUN 11 Creatinine 0.63 Estim Creat Clear Calc 105.0 Estimated GFR > 60 Random Glucose 103 Lactic Acid Calcium 8.2 L Total Bilirubin Direct Bilirubin AST ALT Alkaline Phosphatase Troponin I High Sens B-Natriuretic Peptide Total Protein Albumin Procalcitonin COVID-19 ([facility]) COVID-19 Clin Com 03/20/20 03/21/20 03/22/20 05:28 05:19 05:40 WBC RBC Hgb Hct MCV MCH MCHC RDW Plt Count MPV Immature Gran % (Auto) Neut % (Auto) Lymph % (Auto) Appling % (Auto) Eos % (Auto) Baso % (Auto) Lymph # (Auto) Appling # (Auto) Eos # (Auto) Baso # (Auto) Abs Immat Gran (auto) Absolute Neuts (auto) Absolute Nucleated RBC Nucleated RBC % (auto) Smear Tech's Comments PT INR APTT D-Dimer Sodium 140 Potassium 4.1 Chloride 103 Carbon Dioxide 27 Anion Gap 14 BUN 13 Creatinine 0.72 Estim Creat Clear Calc 100.0 Estimated GFR > 60 Random Glucose 97 Lactic Acid Calcium 8.3 L Total Bilirubin 0.5 0.4 0.3 Direct Bilirubin < 0.2 0.2 AST 15 D 22 D 13 D ALT 16 13 13 Alkaline Phosphatase 65 D 64 72 Troponin I High Sens B-Natriuretic Peptide Total Protein 6.2 L 6.3 L 5.9 L Albumin 3.5 3.3 L 3.3 L Procalcitonin COVID-19 ([facility]) COVID-19 Clin Com 03/23/20 03/24/20 03/24/20 05:26 06:19 06:19 WBC 10.1 RBC 4.34 Hgb 12.7 Hct 40.0 MCV 92.2 MCH 29.3 MCHC 31.8 RDW 12.8 Plt Count 547 H D MPV 9.2 L Immature Gran % (Auto) 2.9 H Neut % (Auto) 69.1 Lymph % (Auto) 18.8 L Appling % (Auto) 7.2 Eos % (Auto) 1.2 Baso % (Auto) 0.8 Lymph # (Auto) 1.9 Appling # (Auto) 0.7 Eos # (Auto) 0.1 Baso # (Auto) 0.1 Abs Immat Gran (auto) 0.29 H Absolute Neuts (auto) 7.0 Absolute Nucleated RBC 0.000 Nucleated RBC % (auto) 0.0 Smear Tech's Comments PT INR APTT D-Dimer Sodium 138 Potassium 4.8 Chloride 101 Carbon Dioxide 29 Anion Gap 13 BUN 15 Creatinine 0.68 Estim Creat Clear Calc 97.2 Estimated GFR > 60 Random Glucose 82 Lactic Acid Calcium 8.9 D Total Bilirubin 0.3 Direct Bilirubin 0.2 AST 20 D ALT 16 Alkaline Phosphatase 77 Troponin I High Sens B-Natriuretic Peptide Total Protein 6.0 L Albumin 3.2 L Procalcitonin COVID-19 ([facility]) COVID-19 Continuent Com 03/26/20 06:18 WBC RBC Hgb Hct MCV MCH MCHC RDW Plt Count MPV Immature Gran % (Auto) Neut % (Auto) Lymph % (Auto) Appling % (Auto) Eos % (Auto) Baso % (Auto) Lymph # (Auto) Appling # (Auto) Eos # (Auto) Baso # (Auto) Abs Immat Gran (auto) Absolute Neuts (auto) Absolute Nucleated RBC Nucleated RBC % (auto) Smear Tech's Comments PT INR APTT D-Dimer Sodium 139 Potassium 4.8 Chloride 104 Carbon Dioxide 22 Anion Gap 18 BUN 15 Creatinine 0.66 Estim Creat Clear Calc 100.2 Estimated GFR > 60 Random Glucose 76 Lactic Acid Calcium 8.7 Total Bilirubin Direct Bilirubin AST ALT Alkaline Phosphatase Troponin I High Sens B-Natriuretic Peptide Total Protein Albumin Procalcitonin COVID-19 ([facility]) COVID-19 Continuent Com Discharge Plan Discharge Patient Disposition: Home, Self-Care Referrals: Physician,Unknown [Primary Care Provider] - Discharge Medications: Continued dicyclomine 10 mg capsule 10 mg PO QID RF: 0 omeprazole 40 mg capsule,delayed release(DR/EC) 40 mg PO BID RF: 0 acetaminophen 325 mg capsule 325 mg PO QID PRN (Reason: Fever Or Pain) RF: 0 sertraline 100 mg tablet 200 mg PO DAILY RF: 0 hydroxyzine HCl 10 mg tablet 10 mg PO TID PRN (Reason: Itching) RF: 0 Toviaz 4 mg tablet extended release 24 hr 4 mg PO DAILY RF: 0 clonazepam 2 mg tablet 2 mg PO TID RF: 0 gabapentin 800 mg tablet 800 mg PO BID RF: 0 acetaminophen-codeine 300-30 mg tablet 1 tab PO Q8H PRN (Reason: Pain (Scale Score 4-6)) RF: 0 Discharge Orders: Discharge Order (Routine); Ordered 03/26/20 Ordered By: Jarrod Maynard Diet: advance to usual diet Activity on Discharge: As tolerated Stand Alone Forms: Patient Portal Discharge page Visit Report Forms: Patient Portal Discharge page Care Plan Goals: Read below Health Concerns: Read below Plan of Treatment: You were admitted to the hospital for treatment of COVID-19 infection. You were treated with IV dexamethasone for total of 10 days. Evaluated by infectious disease specialist and treated with remdesivir for 5 days and received a dose of plasma with good response over the course of treatment as you were weaned off the oxygen and became able to ambulate on room air. No further medications needed at time of discharge. Use cough medication as needed
[2020-03-26 11:42] VITALS: TEMP 37.1
--- NOTE | 2020-03-26 13:41 | MHC.CM.PN ---
Ana informed pt resistant to leaving despite being medically cleared. Apparently, pt is sleeping on the floor of her aunts home where several other people are living. Pt is the only one that is covid + in the household. ANA contacted the [facility] to have pt placed in a hotel for quarantine. CM currently awaiting call back from a nurse who will assess pt for program eligibility. ANA attempted to contact pt on her cell phone which she has in her room with her however the call goes directly to .
--- NOTE | 2020-03-26 15:11 | MHC.CM.PN ---
CM RECEIVED A CALL FROM THE NURSE WORKING WITH THE COVID [employer] TEAM WHO ARRANGES HOTEL ROOMS FOR PEOPLE TO QUARANTINE. SHE BEGAN THE ASSESSMENT TO DETERMINE IF THIS PT WAS ELIGIBLE HOWEVER BASED ON THE PTS COVID DIAGNOSIS DATE, SHE REPORTED SHE DOES NOT NEED TO QUARANTINE. SHE REPORTS THE CDC IS ONLY RECOMMENDING A 10 DAY QUARANTINE AND THE PTS FIRST COVID + SWAB WAS THE . CM MET WITH PT AND INFORMED HER THE CDC HAD DETERMINED SHE WAS NOT ELIGIBLE FOR THE PROGRAM MENTIONED ABOVE. PT REPORTS SHE KNOWS BECAUSE SHE CALLED THEM THIS MORNING TO ASK PRIOR TO INFORMING THE NURSE OF HER CONCERNS ABOUT GOING HOME. PT THEN EXPLAINS, EVERYONE IN HER AUNTS HOME WHERE SHE HAS BEEN STAYING IS COVID +. SHE REPORTS SHE BELIEVES THEY GAVE IT TO HER. SHE REPORTS SHE IS WORRIED BECAUSE HER IS WORRIED ABOUT HER LEAVING THE HOSPITAL WHEN HE IS NOT HOME. SHE REPORTS HE IS OUT OF TOWN WORKING. PT DENIES ANY SAFETY CONCERNS REPORTING HE IS JUST ALWAYS WITH ME. PT REPORTS HER SON WILL BE PICKING HER UP AND SHE WILL BE GOING TO HER AUNTS. PT REPORTS SHE SPOKE TO HER AUNT WHO WAS AGREEABLE TO PTS RETURN. PT WILL DC TO HER AUNTS HOME TODAY WITH NO SERVICES PTS SON WILL TRANSPORT HER. PTS SON IS COVID - PER PT. PT REPORTS SHE PLANS TO SIT IN THE BACK SEAT AND KEEP A MASK ON AT ALL TIMES. SHE REPORTS HER SON WILL ALSO BE BRINGING LYSON WITH HIM TO CLEAN THE CAR ONCE SHE GETS OUT.
== END 2020-03-26 14:50 | disposition home or self-care (01) | DRG 720 ==
LOC: HO.ED 20:54 → HO.EDOVER 21:19 → HO.IMC 03-17 06:25
PROVIDERS: Internal Medicine; Physician Assistant; Admitting Provider Internal Medicine; Emergency Provider Internal Medicine; Visit Provider Student in an Organized Health Care Education/Training Program
DX: A41.9 Sepsis, unspecified organism (principal); U07.1 COVID-19; J96.01 Acute respiratory failure with hypoxia; J12.82 Pneumonia due to coronavirus disease 2019; R65.20 Severe sepsis without septic shock; Z88.6 Allergy status to analgesic agent; Z79.899 Other long term (current) drug therapy
CPT/HCPCS: 36415; 71045; 71275; 80048; 80053; 80076; 83605; 83880; 84145; 84484; 85025; 85379; 85610; 85730; 87040; 87635; 93005; 96361; 96374; 96375; 99284; 99285; J1100; J1200; J1885; J2405; J2765; J3490; Q9967

== ENCOUNTER → 2021-01-02 14:38 | Outpatient (BNVA) | payer MEDICAID, SELFPAY | PROVIDERS: PCP Internal Medicine; Visit Provider Nurse Practitioner | DX: R10.10 Upper abdominal pain, unspecified (principal); K59.01 Slow transit constipation; K21.9 Gastro-esophageal reflux disease without esophagitis | CPT/HCPCS: 99212 ==

== ENCOUNTER 2021-01-12 14:41 | Emergency (ER) | payer MEDICAID, SELFPAY ==
[2021-01-12 14:46] VITALS: BP 128/78; PULSE 67; RESP 18; TEMP 36.7; O2SAT 98; BMI 24.3
[2021-01-12 16:38] VITALS: BP 119/65; PULSE 56; RESP 18; TEMP 36.9; O2SAT 98
--- NOTE | 2021-01-12 17:07 | ED_ITS ---
HPI - Skin/Abscess/Foreign Bdy General Chief complaint: Skin/Abscess/Foreign Body Stated complaint: abscess on right buttocks Time Seen by Provider: 01/12/21 16:12 Source: patient Mode of arrival: ambulatory Limitations: no limitations History of Present Illness MD complaint: abscess/boil Onset (ago): day(s) (6) Location: buttocks (Right-sided) Severity: severe Severity scale (1-10): >10 Quality: aching and constant Pain Consistency: constant Relieving factors: none Exacerbating factors: palpation Context: none Associated symptoms: denies other symptoms Treatments prior to arrival: attempted to drain pus at home Related Data Home Medications Medication Instructions Recorded Confirmed acetaminophen 300 mg-codeine 30 mg 1 tab PO Q8H PRN 02/10/20 03/16/20 tablet acetaminophen 325 mg capsule 325 mg PO QID PRN 02/10/20 03/16/20 clonazepam 2 mg tablet 2 mg PO TID 02/10/20 03/16/20 dicyclomine 10 mg capsule 10 mg PO QID 02/10/20 03/16/20 fesoterodine 4 mg tablet,extended 4 mg PO DAILY 02/10/20 03/16/20 release 24 hr (Toviaz) gabapentin 800 mg tablet 800 mg PO BID 02/10/20 03/16/20 hydroxyzine HCl 10 mg tablet 10 mg PO TID PRN 02/10/20 03/16/20 sertraline 100 mg tablet 200 mg PO DAILY tab 02/10/20 03/16/20 cyclobenzaprine 10 mg tablet 10 mg PO DAILY PRN 01/02/21 mirabegron 25 mg tablet,extended 25 mg PO DAILY 01/02/21 release 24 hr (Myrbetriq) Previous Rx's Medication Instructions Recorded linaclotide 72 mcg capsule 72 mcg PO QAM #30 cap 01/02/21 (Linzess) pantoprazole 40 mg tablet,delayed 40 mg PO BID 30 Days #60 tab 01/02/21 release (Protonix) sucralfate 1 gram tablet (Carafate) 1 g PO BEDTIME 30 Days #30 tab 01/02/21 doxycycline hyclate 100 mg tablet 100 mg PO BID 10 Days #20 tab 01/12/21 oxycodone 5 mg tablet 5 mg PO Q6H PRN #14 tab 01/12/21 Allergies Allergy/AdvReac Type Severity Reaction Status Date / Time ibuprofen [From MOTRIN] Allergy Unknown GASTRITIS Verified 01/12/21 14:46 Motrin Allergy Unknown nausea and Uncoded 03/16/20 17:27 vomiting Review of Systems Review of Systems: Constitutional : No Fever, No Chills, Cardiovascular : No Chest Pain, No SOB Respiratory : No Dyspnea Gastrointestinal : No abdominal pain Musculoskeletal : No Joint Swelling Skin : positive skin abscess with surrounding erythema, no skin laceration, No Foreign bodies, No rash Neuro : No Weakness, No Numbness/tingling Psych : No SI/HI/thoughts of self injury Yes all other systems are reviewed and are negative [facility] [place] Past Medical History Attestation statement: The following information was validated with the patient. Medical History Antral ulcer Family history of breast cancer H. pylori infection Surgical History H/O esophagogastroduodenoscopy H/O hemorrhoidectomy H/O umbilical hernia repair History of hysterectomy History of tubal ligation Social History Social History Household Members: Family Housing: Apartment Do you presently have visiting nurse or other home services: No Alcohol intake: never Advance Directives: No Advance Directives Information Provided: No Patient : No service: No Current occupational status: employed Physical Exam Vital Signs: Vital Signs: Last Vital Signs Temp 98.5 F 01/12/21 16:38 Pulse 56 01/12/21 16:38 Resp 18 01/12/21 16:38 BP 119/65 01/12/21 16:38 Pulse Ox 98 01/12/21 16:38 Body Mass Index 24.3 vital signs have been reviewed as normal and appeared to be correct. Blood pressure normal Heart rate normal. Respiration rate normal. Temperature normal. Oxygen saturation normal. Appearance: Alert. Oriented X3. No acute distress. Head: Normal external exam. Normocephalic. Atraumatic. Eyes: PERRLA. EOMI. Conjunctiva and sclera normal. Eyelids normal. ENT: Pharynx normal. Uvula midline. Moist mucous membranes. Neck: Normal inspection. Neck supple. FROM. CVS: Normal heart rate and rhythm. Respiratory: No respiratory distress. Painless inspiration. Skin: Skin warm and dry. Normal skin color. Normal skin turgor. To right buttocks patient has quarter sized abscessed with surrounding erythema. No purulent drainage or streaking noted or FB's noted. No rashes/lesions/lacerations noted. Extremities: Extremities exhibit normal range of motion. Extremities nontender. Neuro: Oriented X 3. No motor deficit. No sensory deficit. Reflexes normal. Normal steady gait. No focal neuro deficits noted. Vascular: + radial pulses/+ 2 distal pedal pulses/+2 dorsalis pedis b/l. Normal cap refill. No cyanosis noted to upper extremity nails and lower extremity toes nails. Course Course Course Narrative: 50-year-old female presenting to the ED with complaints of an abscess to her right buttocks that started on Friday she reports on Friday she noticed it and tried to pop it with her hands then Friday she woke up and had worsening pain and swelling then she went to her PCP on Friday for regular follow-up appointment and told her PCP and her PCP put her on Keflex 500 mg q.6 hours for 10 days and she reports she is taking as prescribed although the PCP reported if the symptoms worsen that she would have to come to the ER for incision and drainage. Therefore patient is here for that. Patient now status post incision and drainage. Patient tolerated procedure well. No complications. Will add doxycycline and pain meds and instructions to return if any new or worsening symptoms to follow up with primary care provider. Patient understands agrees with this plan. MDM - Skin/Abscess/Foreign Bdy Medical Records Attestation: I reviewed the patient's medical records. Procedures Abscess I/D Site: other (Buttocks) Side (if applicable): right Local Anesthetic: lidocaine 1% Amount of anesthesia used (mL): 5 Technique: incised with blade Amount of fluid expressed (mL): 10 Sent for culture/gram staining?: No Irrigation: Yes Packing used?: none Complications: other (No complications) Discharge Plan Discharge Clinical Impression: Cellulitis, Abscess of skin or subcutaneous tissue Patient Disposition: Home, Self-Care Instructions: Cellulitis (ED), Abscess Incision and Drainage (DC) Prescriptions: New doxycycline hyclate 100 mg tablet 100 mg PO BID 10 Days Qty: 20 RF: 0 oxycodone 5 mg tablet 5 mg PO Q6H PRN (Reason: pain) Qty: 14 RF: 0 No Action dicyclomine 10 mg capsule 10 mg PO QID RF: 0 acetaminophen 325 mg capsule 325 mg PO QID PRN (Reason: Fever Or Pain) RF: 0 sertraline 100 mg tablet 200 mg PO DAILY RF: 0 hydroxyzine HCl 10 mg tablet 10 mg PO TID PRN (Reason: Itching) RF: 0 Toviaz 4 mg tablet extended release 24 hr 4 mg PO DAILY RF: 0 clonazepam 2 mg tablet 2 mg PO TID RF: 0 gabapentin 800 mg tablet 800 mg PO BID RF: 0 acetaminophen-codeine 300-30 mg tablet 1 tab PO Q8H PRN (Reason: Pain (Scale Score 4-6)) RF: 0 Myrbetriq 25 mg tablet extended release 24 hr 25 mg PO DAILY RF: 0 cyclobenzaprine 10 mg tablet 10 mg PO DAILY PRN (Reason: muscle spasm) RF: 0 Linzess 72 mcg capsule 72 mcg PO QAM Qty: 30 RF: 6 pantoprazole [Protonix] 40 mg tablet,delayed release (DR/EC) 40 mg PO BID 30 Days Qty: 60 RF: 1 sucralfate [Carafate] 1 gram tablet 1 g PO BEDTIME 30 Days Qty: 30 RF: 6 Referrals: Sarah Aj MD [Primary Care Provider] - 2 days Stand Alone Forms: Work/School Release Print Language: Setswana
[2021-01-12] MEDS: oxyCODONE HCl Immed Release 5 MG TABLET PO (17:19)
[2021-01-12] MEDS: Lidocaine HCl 1 % MPF 5 ML VIAL SUBCUT (17:20)
== END 2021-01-12 17:24 | disposition home or self-care (01) ==
PROVIDERS: Emergency Provider Emergency Medicine Emergency Medical Services; PCP Internal Medicine
DX: L02.31 Cutaneous abscess of buttock (principal); L03.317 Cellulitis of buttock
CPT/HCPCS: 10060; 99284

== ENCOUNTER → 2021-01-16 12:48 | Outpatient (BNVA) | payer MEDICAID, SELFPAY | PROVIDERS: PCP Internal Medicine; Visit Provider Nurse Practitioner ==

== ENCOUNTER 2021-02-20 10:22 | Outpatient (REF) | payer MEDICAID, SELFPAY ==
--- NOTE | ~2021-02-20 | MM_ITS ---
EXAMINATION: MM DIAGNOSTIC DIGITAL BREAST TOMOSYNTHESIS, BILATERAL US DIAGNOSTIC ULTRASOUND BREAST, LEFT CLINICAL INFORMATION: At time of screening, patient notes 2 month history left lateral breast pain. No erythema. No palpable mass or discharge. 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 Prior history bilateral benign breast biopsies. The lifetime risk of breast cancer based on the Tyrer-Cuzick Model is 15%. COMPARISON: Mammography: 02/03/2020, 04/15/2018, 07/22/2017. TECHNIQUE: Digital breast tomosynthesis is performed in both the craniocaudal and mediolateral oblique views along with computer-aided detection (CAD). Synthesized 2D images are generated from the tomosynthesis. Ultrasound left breast is targeted to the 12:00 through 6:00 position. Grayscale imaging and color Doppler are performed without and with harmonics. FINDINGS: The breasts are heterogeneously dense, which may obscure small masses (ACR BI-RADS breast composition Category c). Parenchymal pattern is similar to prior studies. Breast tissue composition borders on extremely dense. The accessory breast tissue upper right breast on MLO view is stable. There is no developing density or interval mass or architectural abnormality. No skin thickening or coarsening of the Kofi's ligaments. There are 4 biopsy clip markers left breast and one clip marker overlying left axillary node. There is a biopsy clip marker also noted on the right mid 9:00 position. Ultrasound demonstrates no cystic or solid mass or architectural abnormality. No focal duct ectasia. No skin thickening or edema tracking in soft tissue planes. Results are discussed with the patient at time of visit. MM/MM tomosynthesis diagnostic BI IMPRESSION: No mammographic evidence of malignancy or inflammatory changes. Unremarkable left breast ultrasound. ASSESSMENT: BI-RADS 2: Benign RECOMMENDATION: 1. Patient's left breast pain should be managed based on the clinical impression. 2. Otherwise, routine annual screening mammography. This patient's information was entered into a reminder system with a target due date for their next mammogram.
== END 2021-02-20 10:23 | disposition home or self-care (01) ==
LOC: HO.MAMMO 10:22
PROVIDERS: Visit Provider Internal Medicine
DX: N64.4 Mastodynia (principal)
CPT/HCPCS: 76642; 77062; 77066

== ENCOUNTER → 2021-03-01 14:27 | Outpatient (BNVA) | payer MEDICAID, SELFPAY | PROVIDERS: PCP Internal Medicine; Visit Provider Surgery | DX: Z80.3 Family history of malignant neoplasm of breast (principal) | CPT/HCPCS: 99212 ==

== ENCOUNTER 2021-11-13 14:43 | Emergency (ER) | payer MEDICAID, SELFPAY ==
--- NOTE | ~2021-11-13 | XR_ITS ---
EXAMINATION: XR CHEST CLINICAL INFORMATION: Chest pain COMPARISON: Previous chest x-ray most recent March 2020 TECHNIQUE: Frontal view of the chest was obtained. FINDINGS: The cardiac and mediastinal contours are stable. The lungs are clear. There is slight elevation of the left hemidiaphragm similar to previous exam. There is no pleural effusion or pneumothorax. There are median sternotomy wires. XR/XR chest 1V IMPRESSION: No evidence for acute disease in the chest.
[2021-11-13 15:50] VITALS: BP 136/85; PULSE 72; RESP 18; TEMP 36.9; O2SAT 99; BMI 25.0
--- NOTE | 2021-11-13 15:53 | ECG_ITS ---
Test Reason : chest pain Blood Pressure : / mmHG Vent. Rate : 060 BPM Atrial Rate : 060 BPM P-R Int : 142 ms QRS Dur : 090 ms QT Int : 422 ms P-R-T Axes : 055 067 046 degrees QTc Int : 422 ms Normal sinus rhythm Normal ECG When compared with ECG of 22-MAR-2020 23:08, Heart rate has increased Referred By: Generic ED Physician Electronically Signed By:MAXIMINO MENDEZ
[2021-11-13 16:14] LABS: Basophils Absolute Auto 0.1 X10*3/uL (0.0-0.2); Eosinophils Absolute Auto 0.5 X10*3/uL (0.0-0.4); Eosinophils Percent Auto 7.5 % (0-4); Hematocrit 40.3 % (37.0-47.0); Hemoglobin 13.2 g/dl (12.0-16.0); Imm Gran Abs Auto 0.01 X10*3/uL (0.00-0.03); Imm Gran Pct Auto 0.2 % (0.0-0.4); Lymphocytes Absolute Auto 1.8 X10*3/uL (1.2-4.9); Lymphocytes Percent Auto 29.4 % (20-40); MANUAL DIFF FLAG NO; Mean Corpuscular HGB Conc 32.8 g/dl (31.0-35.0); Mean Corpuscular Hemoglobin 30.1 pg (27.0-33.0); Mean Corpuscular Volume 91.8 fL (80.0-98.0); Mean Platelet Volume 9.8 fL (9.4-12.3); Monocytes Absolute Auto 0.6 X10*3/uL (0.1-1.2); Monocytes Percent Auto 9.1 % (2-11); Neutrophils Absolute Auto 3.2 x10*3/uL (2.0-8.3); Neutrophils Percent Auto 52.8 % (45-73); Platelet Count 248 X10*3/uL (160-400); Red Blood Count 4.39 X10*6/uL (4.20-5.50); Red Cell Distribution Width 11.9 % (11.0-16.0); White Blood Count 6.1 X10*3/uL (4.8-10.8)
[2021-11-13 16:28] LABS: Anion Gap 13 (12-20); Blood Urea Nitrogen 12 mg/dL (9-16); Calcium 9.8 mg/dL (8.4-10.2); Carbon Dioxide 28 mmol/L (22-29); Chloride 105 mmol/L (96-108); Creatinine Clr Calc Pharmacy 94.8; Estimated Glomerular Filt Rate > 60; Glucose Random 95 mg/dL (60-115); Potassium 4.7 mmol/L (3.3-5.1); Sodium 141 mmol/L (135-145)
[2021-11-13 16:42] LABS: COVID-19 Test Negative (Negative)
== END 2021-11-14 01:12 | disposition left against medical advice (07) ==
PROVIDERS: Emergency Provider Emergency Medicine; PCP Internal Medicine
DX: R07.9 Chest pain, unspecified (principal); R51.9 Headache, unspecified; Z20.822 Contact with and (suspected) exposure to COVID-19
CPT/HCPCS: 71045; 80048; 85025; 87635; 93005; 99283

== ENCOUNTER → 2021-12-31 16:10 | Outpatient (BNVA) | payer MEDICAID, SELFPAY | PROVIDERS: PCP Internal Medicine; Visit Provider Surgery | DX: N64.4 Mastodynia (principal) | CPT/HCPCS: 99202 ==

== ENCOUNTER 2022-02-02 22:51 | Inpatient (IN) | payer MEDICAID, SELFPAY ==
--- NOTE | 2022-02-02 | ECG_ITS ---
Test Reason : left arm pain Blood Pressure : / mmHG Vent. Rate : 079 BPM Atrial Rate : 079 BPM P-R Int : 136 ms QRS Dur : 084 ms QT Int : 384 ms P-R-T Axes : 047 073 029 degrees QTc Int : 440 ms Normal sinus rhythm Normal ECG When compared with ECG of 13-NOV-2021 16:03, No significant change was found Referred By: Generic ED Physician Electronically Signed By:Bay Thomas
--- NOTE | ~2022-02-02 | MR_ITS ---
MRI BRAIN WITH IV CONTRAST CLINICAL INFORMATION: Question mass on MRI without contrast COMPARISON: Brain MRI 02/04/2022. TECHNIQUE: Axial and coronal postcontrast series of the brain are obtained following the administration of 7.5 mL of Gadavist intravenous contrast without complication. FINDINGS: There is no pathologic enhancement intracranially. Complete opacification of the left maxillary sinus again noted. MR/MR head/brain w con IMPRESSION: There is no pathologic enhancement intracranially suggesting that the previous abnormal signal changes at the right temporal occipital lobe junction could reflect an evolving subacute infarct. A short-term follow-up MRI with and without IV contrast in 6-8 weeks is advised to assess the evolution of the signal changes and exclude any alternative pathology. Complete opacification of the left maxillary sinus again noted.
--- NOTE | ~2022-02-02 | CT_ITS ---
EXAMINATION: CT CHEST WITH CONTRAST CLINICAL INFORMATION: Chest pain, history of thymoma COMPARISON: 03/16/2020, 08/11/2018 TECHNIQUE: Multidetector volumetric CT imaging of the chest was obtained after the administration of 75 mL of Omnipaque 350 intravenous contrast without immediate adverse reactions. Axial MIP volume rendering provided. Sagittal and coronal reformatted images were obtained. This CT examination was performed using dose optimization techniques as appropriate, variously including the following: *Automated exposure control *Adjustment of mA and/or kV according to patient size (this includes techniques or standardized protocols for targeted exams where dose is matched to indication/reason for exam; i.e. extremities or head) *Use of iterative reconstruction technique DLP: 329 mGy-cm FINDINGS: LUNGS: Right posterolateral tracheal diverticulum noted. There is redemonstrated elevation of the left hemidiaphragm with adjacent basilar atelectasis. No additional consolidation is seen. There is a 3 mm right upper lobe nodule on image 134/480 which appears unchanged from 08/11/2018, favoring a benign etiology. MEDIASTINUM: Visualized thyroid gland is unremarkable. No mediastinal lymphadenopathy is seen. Cardiac size is within normal limits; no pericardial effusion. The aorta is unremarkable. PLEURA: There is no pleural effusion. No pleural mass or thickening. AXILLA: No lymphadenopathy. UPPER ABDOMEN: There are 2 mildly hypoattenuating foci in the right hepatic lobe which appear without significant change from prior MRI of 12/11/2016, previously characterized as hemangiomas. OSSEOUS STRUCTURES: Status post sternotomy. CT/CT chest w IV con IMPRESSION: 1. No acute intrathoracic findings. 2. Chronic appearing changes as noted above.
--- NOTE | ~2022-02-02 | CT_ITS ---
EXAMINATION: CT HEAD WITHOUT CONTRAST CLINICAL INFORMATION: Left arm pain and heaviness, rule out stroke COMPARISON: 02/23/2018 TECHNIQUE: Contiguous axial imaging was performed from the skull base to vertex without intravenous administration of contrast. This CT examination was performed using dose optimization techniques as appropriate, variously including the following: *Automated exposure control *Adjustment of mA and/or kV according to patient size (this includes techniques or standardized protocols for targeted exams where dose is matched to indication/reason for exam; i.e. extremities or head) *Use of iterative reconstruction technique DLP: 631 mGy-cm FINDINGS: There is no evidence of acute intracranial hemorrhage. There is a focal region of loss of peres-white differentiation the right parieto-occipital region as seen on axial series 2 image 31/50, raising concern for an area of acute infarct in the proper clinical setting. No abnormal mass-effect or midline shift is seen. Peres to white matter differentiation is otherwise well preserved. No extra-axial fluid collections are identified. The ventricles are normal in size. The osseous structures and soft tissues are normal. Near-complete opacification of the left maxillary sinus. There is partial opacification of the bilateral ethmoid air cells. The mastoid air cells are well-aerated. CT/CT head/brain wo IV con IMPRESSION: Focal region of loss of peres-white differentiation in the right parieto-occipital region, raising concern for acute infarct. Further evaluation with MRI is recommended. This critical result was discussed with Baldemar Davies on 02/03/2022 2:06 AM, and it was ascertained that the content and urgency of the report was understood at the time of direct communication.
--- NOTE | ~2022-02-02 | MR_ITS ---
EXAMINATION: MR BRAIN AND CERVICAL SPINE WITHOUT CONTRAST CLINICAL INFORMATION: Stroke. Left arm numbness. COMPARISON: Head CT 02/03/2022. TECHNIQUE: MRI of the brain and cervical spine was obtained using routine sequences without contrast. FINDINGS: Brain: There is mildly expansile T2/FLAIR hyperintensity seen at the junction of the right posterior temporal lobe and parietal occipital lobes. There is no associated diffusion restriction or susceptibility signal. There is no acute infarction, hemorrhage, or extra-axial fluid collection. Minimal T2/FLAIR hyperintensity is seen in the periventricular white matter. The ventricles are normal in size without hydrocephalus. There is complete opacification of the left maxillary sinus related to large mucosal retention cyst. There is additional mild to moderate paranasal sinus mucosal thickening. A small amount of left mastoid fluid is noted. The major arterial flow voids are preserved at the skull base. Cervical spine: The cervical vertebral bodies maintain normal heights. There is trace retrolisthesis of C4 on C5. No moderate or severe disc height loss is seen. There is no bone marrow edema. The cervical cord signal appears normal. C3-C4: Mild disc bulging. No stenosis. C4-C5: Disc bulging with uncovertebral hypertrophy resulting in mild right neural foraminal stenosis. C5-C6: Disc bulging with uncovertebral hypertrophy resulting in mild bilateral neural foraminal stenosis. No spinal canal stenosis. C6-C7: Mild disc bulging. No spinal canal or neural foraminal stenosis. C7-T1: No stenosis. The extraspinal soft tissues are within normal limits. MR/MR cervical spine wo con IMPRESSION: 1. Mildly expansile T2/FLAIR hyperintensity seen at the junction of the right posterior temporal lobe and parietal occipital lobes. No associated diffusion restriction or susceptibility signal. This finding is nonspecific and could represent sequela of subacute infarction among other etiologies. Recommend postcontrast images to evaluate for any enhancement. 2. Mild spondylotic changes without significant narrowing of the spinal canal or neural foramina. No cord signal abnormality.
--- NOTE | ~2022-02-02 | CT_ITS ---
EXAMINATION: CT ANGIOGRAM NECK AND HEAD CLINICAL INFORMATION: Left arm pain, heaviness COMPARISON: Noncontrast head CT from earlier today TECHNIQUE: Test bolus sequences followed by intravenous administration 75 mL of Omnipaque 350. Helical imaging was performed in the axial plane from the thoracic inlet to the skull vertex. Delayed postcontrast imaging of the head was also performed. The data was processed at the lead nuclear medicine technologist's workstation for generation of MIP sequences. Angled MIPs and volume rendered reformatted images were also generated at an offline 3D workstation. Stenoses are assessed in accordance with NASCET criteria unless otherwise indicated. DOSE LOWERING TECHNIQUES: This CT examination was performed using dose optimization techniques as appropriate, variously including the following: - Automated exposure control - Adjustment of mA and/or kV according to patient size (this includes techniques or standardized protocols for targeted exams were dose is matched to indication/reason for exam; i.e. extremities or head) - Use of iterative reconstruction technique DLP: 1795 mGy-cm FINDINGS: Neck CTA: There is a classic 3 vessel branching pattern of the aortic arch. Normal appearance of the visualized aortic arch and proximal branches. No evidence of stenosis at the branch origins. Both vertebral arteries are widely patent throughout their extracranial cervical course. Normal appearance of the common and internal carotid arteries without focal stenosis. Brain CTA: Normal appearance of the intradural vertebral arteries. Normal appearance of the basilar and superior cerebellar arteries. Normally opacified posterior cerebral arteries bilaterally. Normal appearance of the intradural internal carotid arteries without focal stenosis. Normal appearance of the anterior cerebral and middle cerebral arteries without focal occlusion or stenosis. Normal anterior communicating artery. Normal arborization of the middle cerebral arteries. CT Head: No intracranial mass, hemorrhage, extra-axial collection, or midline shift. Redemonstrated focus of loss of pineda-white differentiation in the right parieto-occipital region, concerning for region of acute infarct. The pineda-white matter differentiation is otherwise preserved. No pathologic intra-axial enhancement or regional oligemia. No hydrocephalus. The there is near complete opacification of the left maxillary sinus. Mucosal thickening noted in the bilateral ethmoid air cells. Bilateral mastoid air cells are well-aerated. CT Neck: Right posterolateral tracheal diverticulum noted. The thyroid gland and remaining cervical soft tissues are normal in appearance. No cervical spine abnormalities demonstrated. Upper Chest: No abnormalities in the visualized lung apices or upper mediastinum. CT/CT angio head neck IMPRESSION: 1. No hemodynamically significant stenosis in the major arteries of the neck. No large vessel occlusion or significant stenosis in the intracranial circulation. 2. Redemonstrated focus of hypoattenuation in the right parieto-occipital region, concerning for a region of acute infarct. As noted on the recently noncontrast exam, further evaluation with MRI is recommended. Findings discussed with Baldemar Davies on 02/03/2022 2:06 AM.
[2022-02-02 22:58] VITALS: BP 119/68; PULSE 82; RESP 18; TEMP 36.5; O2SAT 95; BMI 24.9
[2022-02-02 23:36] LABS: MANUAL DIFF FLAG NO
[2022-02-02 23:40] LABS: Basophils Absolute Auto 0.1 X10*3/uL (0.0-0.2); Basophils Percent Auto 0.7 % (0-2); Eosinophils Absolute Auto 0.3 X10*3/uL (0.0-0.4); Eosinophils Percent Auto 4.9 % (0-4); Hematocrit 39.8 % (37.0-47.0); Hemoglobin 13.4 g/dl (12.0-16.0); Imm Gran Abs Auto 0.02 X10*3/uL (0.00-0.03); Imm Gran Pct Auto 0.3 % (0.0-0.4); Lymphocytes Absolute Auto 2.1 X10*3/uL (1.2-4.9); Lymphocytes Percent Auto 30.5 % (20-40); Mean Corpuscular HGB Conc 33.7 g/dl (31.0-35.0); Mean Corpuscular Hemoglobin 29.8 pg (27.0-33.0); Mean Corpuscular Volume 88.4 fL (80.0-98.0); Mean Platelet Volume 10.1 fL (9.4-12.3); Monocytes Absolute Auto 0.6 X10*3/uL (0.1-1.2); Monocytes Percent Auto 8.1 % (2-11); Neutrophils Absolute Auto 3.8 x10*3/uL (2.0-8.3); Neutrophils Percent Auto 55.5 % (45-73); Platelet Count 280 X10*3/uL (160-400); Red Cell Distribution Width 11.9 % (11.0-16.0); White Blood Count 6.8 X10*3/uL (4.8-10.8)
--- NOTE | 2022-02-02 23:51 | ED_ITS ---
HPI - General Adult General Chief complaint: General Medical Stated complaint: Pain in L arm Time Seen by Provider: 02/02/22 23:50 Source: patient Mode of arrival: ambulatory Limitations: no limitations History of Present Illness HPI narrative: 51-year-old female who presents emergency department for evaluation of intermittent left arm pain and heaviness. 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 At 13:00 hours yesterday she was at work and she developed a sudden onset of pain in her left arm involving her shoulder down to her hand. She describes the pain is a severe sharp achiness which was 9/10. She states that her arm also felt very tingly and heavy. Sensation lasted for about 1 hour and then resolved. Patient states that she had associated headache in the frontal area of her head which she described as a pressure which was 5/10 different from her migraine headaches. She also had left sided chest pressure approximately 3/10. The patient states that she stayed at work and finished her shift. She states that when she was home at around 18:00 she had a 2nd episode of left arm pain and heaviness which lasted approximately 30 minutes again the pain was 9/10. She had no associated headache or chest pain. The patient had a 3rd episode at 21:00 hours again the pain was 9/10 associated with heaviness of her left arm and pain in her chest. She denied headache with the 3rd episode. She did however feel dizzy and lightheaded. Patient states she does have a history of migraines but has never had associated pain in her arm or heaviness in her arm with her migraines. She denied fever, chills, rhinorrhea, sore throat, cough, nausea, vomiting, diarrhea. She did not notice any redness or swelling of her left arm. Related Data Home Medications Medication Instructions Recorded Confirmed acetaminophen 300 mg-codeine 30 mg 1 tab PO Q8H PRN Pain (Scale Score 02/10/20 12/31/21 tablet 4-6) acetaminophen 325 mg capsule 325 mg PO QID PRN Fever Or Pain 02/10/20 12/31/21 clonazepam 2 mg tablet 2 mg PO TID 02/10/20 12/31/21 dicyclomine 10 mg capsule 10 mg PO QID 02/10/20 12/31/21 gabapentin 800 mg tablet 800 mg PO BID 02/10/20 12/31/21 hydroxyzine HCl 10 mg tablet 10 mg PO TID PRN Itching 02/10/20 12/31/21 mirabegron 25 mg tablet,extended 25 mg PO DAILY 01/02/21 12/31/21 release 24 hr (Myrbetriq) sumatriptan succinate 50 mg tablet 50 mg PO migraine 03/01/21 12/31/21 Previous Rx's Medication Instructions Recorded linaclotide 72 mcg capsule 72 mcg PO QAM #30 caps 01/02/21 (Linzess) doxycycline hyclate 100 mg tablet 100 mg PO BID 10 days #20 tabs 01/12/21 oxycodone 5 mg tablet 5 mg PO Q6H PRN pain #14 tabs 01/12/21 pantoprazole 40 mg tablet,delayed 40 mg PO BID #60 tabs 11/13/21 release sucralfate 1 gram tablet 1 g PO BEDTIME #30 tabs 11/13/21 Allergies Allergy/AdvReac Type Severity Reaction Status Date / Time ibuprofen [From MOTRIN] Allergy Unknown GASTRITIS Verified 12/31/21 16:16 Motrin Allergy Unknown nausea and Uncoded 12/31/21 16:16 vomiting Review of Systems Review of Systems: Yes all other systems are reviewed and are negative ON LICENSE OF [facility] Past Medical History ON LICENSE OF [facility] Narrative: Past medical history: Reviewed below, migraine headaches. Past surgical history: Chest thymoma removed in 2019. Social history: The patient denies tobacco use. She denies denies tobacco use. She occasionally drinks alcohol. She denies drug use. Medical History (Updated 02/03/22 @ 02:57 by Baldemar Coley MD) Antral ulcer Bilateral mastodynia Family history of breast cancer H. pylori infection Surgical History H/O esophagogastroduodenoscopy H/O hemorrhoidectomy H/O umbilical hernia repair History of hysterectomy History of tubal ligation Family History Family History Maternal Aunt No problems noted. Social History Social History Household Members: Family Housing: Apartment Do you presently have visiting nurse or other home services: No Alcohol intake: never Smoked in Last 30 Days: No Use of substances other than those prescribed or required for medical reasons: No Advance Directives: No Advance Directives Information Provided: Yes Patient : No service: No Current occupational status: employed Physical Exam ED Vital Signs: Vital Signs - 24 hr 02/02/22 22:58 02/02/22 23:56 Temperature 97.7 F 98.6 F Pulse Rate 82 74 Respiratory Rate 18 16 Blood Pressure 119/68 127/78 Pulse Oximetry 95 99 Oxygen Delivery Method Room Air Room Air BMI result Body Mass Index 24.9 Const General: cooperative and no acute distress Orientation/consciousness: oriented to person and oriented to place Limitations: no limitations HENMT Head: Yes normal to inspection, Yes normocephalic and Yes atraumatic Ears: external ears normal General nose exam: Normal external nose present Face and sinus: Yes normal facial exam Mouth: Normal oral and palatal mucosa present Throat: Yes posterior oropharynx normal Eyes General: appearance normal, both eyes and all related structures Pupils: Equal, round and reactive pupils present Neck Other: Patient does have tenderness palpation of her left trapezius muscle Neck: Yes normal visual inspection, Yes no lymphadenopathy, Yes trachea midline and Yes supple Chest Chest palpation & inspection: normal inspection of the chest and normal palpation of entire chest wall Resp Effort & Inspection: normal respiratory effort and able to speak in complete sentences Auscultation: clear to auscultation bilaterally Cardio Rate: regular rate Rhythm: regular rhythm Heart sounds: S1 normal heart sound present, S2 normal heart sound present and no murmurs GI Inspection: Yes normal to inspection Palpation (GI): Soft to palpation, nontender and no guarding Auscultation: normal bowel sounds General: Yes no CVA tenderness Back/Spine/Pelvis Back: no CVA tenderness Skin Other: There is no increased warmth, or erythema to her left upper extremity. Neuro General: oriented to person and oriented to place Cranial nerves: Yes CN's II-XII intact bilaterally and Yes Equal, round and reactive pupils present Cognition (Neuro): normal cognition Motor exam (neuro): 5/5 motor strength present throughout Extrem Other: Patient does have some mild tenderness palpation of her left shoulder and left biceps Psych Appearance: grossly normal Speech and movement: Normal speech and movement present Affect: normal affect Attitude: cooperative Thought process: Normal thought process present Thought content: Normal thought content present Course Course Course Narrative: 51-year-old female who presents emergency department for evaluation of 3 episodes of severe pain in her left upper extremity with associated heaviness, each episode lasting between 30 minutes on an hour. Patient did have associated chest pain and headache as well as dizziness with 1 of the episode but not all of them. Patient's vital signs were unremarkable. Physical examination did reveal some tenderness palpation of her left trapezius muscle, left shoulder and biceps muscles with no erythema, increased warmth or soft tissue swelling of these areas. Patient's neurologic exam was nonfocal. At this time I do not have clear cause for these symptoms, differential includes was not limited to streptococcal/staff inspection, stroke, carotid dissection. Patient did have la boratory evaluation ordered at triage the patient's CBC, CMP and troponin were unremarkable. I did add ESR, CRP, blood cultures x2, CPK, CT scan of the head without contrast, CT angiogram head and neck, CT chest with IV contrast. The patient does not want any pain medications at this time. 0248: Laboratory evaluation: ESR and CRP were normal. Radiology evaluation: CT scan of the head, CT angiogram head and neck radiology interpretation: IMPRESSION: 1. No hemodynamically significant stenosis in the major arteries of the neck. No large vessel occlusion or significant stenosis in the intracranial circulation. 2. Redemonstrated focus of hypoattenuation in the right parieto-occipital region, concerning for a region of acute infarct. As noted on the recently noncontrast exam, further evaluation with MRI is recommended. Findings discussed with Baldemar Davies on 02/03/2022 2:06 AM. I did discuss this finding with the patient. The patient most likely has an acute stroke which is causing her symptoms. She is outside the tPA window and there was no retrieval clot as per the radiology reading. Patient was ordered to get aspirin 162 mg orally. I will discuss admission with the covering hospitalist. Medications Administered Discontinued Medications Generic Name Dose Route Start Last Admin Trade Name Freq PRN Reason Stop Dose Admin Iohexol 100 ml 02/03/22 01:45 02/03/22 01:45 Iohexol 350 Mg/Ml 100 Ml Infus..Btl IV 02/03/22 01:46 75 ml ONCE ONE Administration Medical Decision Making Lab Data Lab results reviewed: Yes I reviewed the patient's lab results. Result diagrams: 02/02/22 23:21 02/02/22 23:21 Labs: Lab Results 02/02/22 02/02/2202/02/22 Range/Units 23:21 23:21 23:21 WBC 6.8 (4.8-10.8) X10*3/uL RBC 4.50 (4.20-5.50) X10*6/uL Hgb 13.4 (12.0-16.0) g/dl Hct 39.8 (37.0-47.0) % MCV 88.4 (80.0-98.0) fL MCH 29.8 (27.0-33.0) pg MCHC 33.7 (31.0-35.0) g/dl RDW 11.9 (11.0-16.0) % Plt Count 280 (160-400) X10*3/uL MPV 10.1 (9.4-12.3) fL Immature Gran % (Auto) 0.3 (0.0-0.4) % Neut % (Auto) 55.5 (45-73) % Lymph % (Auto) 30.5 (20-40) % [place] % (Auto) 8.1 (2-11) % Eos % (Auto) 4.9 H (0-4) % Baso % (Auto) 0.7 (0-2) % Lymph # (Auto) 2.1 (1.2-4.9) X10*3/uL [place] # (Auto) 0.6 (0.1-1.2) X10*3/uL Eos # (Auto) 0.3 (0.0-0.4) X10*3/uL Baso # (Auto) 0.1 (0.0-0.2) X10*3/uL Abs Immat Gran (auto) 0.02 (0.00-0.03) X10*3/uL Absolute Neuts (auto) 3.8 (2.0-8.3) x10*3/uL Absolute Nucleated RBC 0.000 (0.0-0.012) X10*3/uL Nucleated RBC % (auto) 0.0 (0.0-0.2) /100WBC ESR (0-20) MM/HR Sodium 141 (135-145) mmol/L Potassium 3.8 (3.3-5.1) mmol/L Chloride 106 (96-108) mmol/L Carbon Dioxide 24 (22-29) mmol/L Anion Gap 15 (12-20) BUN 14 (9-16) mg/dL Creatinine 0.73 (0.5-1.4) mg/dL Estim Creat Clear Calc 88.7 Estimated GFR > 60 Random Glucose 108 (60-115) mg/dL Calcium 9.9 (8.4-10.2) mg/dL Total Bilirubin 0.8 (0.0-1.0) mg/dL AST 19 (5-31) U/L ALT 17 (0-31) U/L Alkaline Phosphatase 89 (39-117) U/L Total Creatine Kinase 165 H (26-140) U/L Troponin I High Sens < 3.5 (<3.5-17.0) ng/L C-Reactive Protein 0.15 (< or = 0.50) mg/dL Total Protein 7.3 D (6.5-8.0) g/dL Albumin 4.7 D (3.5-5.0) g/dL 02/03/22 Range/Units 00:48 WBC (4.8-10.8) X10*3/uL RBC (4.20-5.50) X10*6/uL Hgb (12.0-16.0) g/dl Hct (37.0-47.0) % MCV (80.0-98.0) fL MCH (27.0-33.0) pg MCHC (31.0-35.0) g/dl RDW (11.0-16.0) % Plt Count (160-400) X10*3/uL MPV (9.4-12.3) fL Immature Gran % (Auto) (0.0-0.4) % Neut % (Auto) (45-73) % Lymph % (Auto) (20-40) % [place] % (Auto) (2-11) % Eos % (Auto) (0-4) % Baso % (Auto) (0-2) % Lymph # (Auto) (1.2-4.9) X10*3/uL [place] # (Auto) (0.1-1.2) X10*3/uL Eos # (Auto) (0.0-0.4) X10*3/uL Baso # (Auto) (0.0-0.2) X10*3/uL Abs Immat Gran (auto) (0.00-0.03) X10*3/uL Absolute Neuts (auto) (2.0-8.3) x10*3/uL Absolute Nucleated RBC (0.0-0.012) X10*3/uL Nucleated RBC % (auto) (0.0-0.2) /100WBC ESR 7 (0-20) MM/HR Sodium (135-145) mmol/L Potassium (3.3-5.1) mmol/L Chloride (96-108) mmol/L Carbon Dioxide (22-29) mmol/L Anion Gap (12-20) BUN (9-16) mg/dL Creatinine (0.5-1.4) mg/dL Estim Creat Clear Calc Estimated GFR Random Glucose (60-115) mg/dL Calcium (8.4-10.2) mg/dL Total Bilirubin (0.0-1.0) mg/dL AST (5-31) U/L ALT (0-31) U/L Alkaline Phosphatase (39-117) U/L Total Creatine Kinase (26-140) U/L Troponin I High Sens (<3.5-17.0) ng/L C-Reactive Protein (< or = 0.50) mg/dL Total Protein (6.5-8.0) g/dL Albumin (3.5-5.0) g/dL ECG Data Attestation: I personally reviewed and interpreted this ECG as follows: Interpretation: 2312: Normal sinus rhythm rate of 79, normal IL interval, QRS duration and QTC interval, no ST segment elevation, no ST segment depression, no PACs, no PVCs, no significant T-wave abnormalities. This is a normal EKG. Critical Care Time Critical Care Time Critical Care Time: Yes Total Critical Care Time: 30 Attestation: Critical Care: The patient was critically ill with a high probability of imminent or life threatening deterioration. I spent greater than 30 minutes of discontinuous time evaluating the patient,delivering critical care at the bedside, discussing and evaluating pertinent data with consultants. Critical care time does not include time spent performing separately billable procedures or teaching. Total time spent performing critical care was 30 minutes. Discharge Plan Discharge Prescriptions: No Action pantoprazole 40 mg tablet,delayed release (DR/EC) 40 mg PO BID Qty: 60 1RF sucralfate 1 gram tablet 1 g PO BEDTIME Qty: 30 6RF doxycycline hyclate 100 mg tablet 100 mg PO BID 10 Days Qty: 20 0RF oxycodone 5 mg tablet 5 mg PO Q6H PRN (Reason: pain) Qty: 14 0RF dicyclomine 10 mg capsule 10 mg PO QID acetaminophen 325 mg capsule 325 mg PO QID PRN (Reason: Fever Or Pain) hydroxyzine HCl 10 mg tablet 10 mg PO TID PRN (Reason: Itching) clonazepam 2 mg tablet 2 mg PO TID gabapentin 800 mg tablet 800 mg PO BID acetaminophen-codeine 300-30 mg tablet 1 tab PO Q8H PRN (Reason: Pain (Scale Score 4-6)) Myrbetriq 25 mg tablet extended release 24 hr 25 mg PO DAILY Linzess 72 mcg capsule 72 mcg PO QAM Qty: 30 6RF Rx Instructions: first thing in the am with a full glass of water sumatriptan succinate 50 mg tablet 50 mg PO
[2022-02-02 23:56] VITALS: BP 127/78; PULSE 74; RESP 16; TEMP 37; O2SAT 99
[2022-02-02 23:59] LABS: Alanine Aminotransferase 17 U/L (0-31); Albumin Level 4.7 g/dL (3.5-5.0); Alkaline Phosphatase 89 U/L (39-117); Anion Gap 15 (12-20); Aspartate Amino Transferase 19 U/L (5-31); Blood Urea Nitrogen 14 mg/dL (9-16); Calcium 9.9 mg/dL (8.4-10.2); Carbon Dioxide 24 mmol/L (22-29); Chloride 106 mmol/L (96-108); Creatinine Clr Calc Pharmacy 88.7; Estimated Glomerular Filt Rate > 60; Glucose Random 108 mg/dL (60-115); Potassium 3.8 mmol/L (3.3-5.1); Sodium 141 mmol/L (135-145); Total Protein 7.3 g/dL (6.5-8.0)
[2022-02-03 00:02] LABS: Troponin-I High Sensitivity < 3.5 ng/L (<3.5-17.0)
[2022-02-03 00:12] LABS: Bilirubin Total 0.8 mg/dL (0.0-1.0)
[2022-02-03 01:04] LABS: C Reactive Protein 0.15 mg/dL (< or = 0.50)
[2022-02-03 01:38] LABS: Erythrocyte Sedimentation Rate 7 MM/HR (0-20)
[2022-02-03] MEDS: iohexoL 350 MG/ML 100 ML INFUS..BTL IV (01:45)
[2022-02-03] MEDS: Aspirin 81 MG TAB.CHEW 162 MG PO (02:57)
--- NOTE | 2022-02-03 03:15 | P.HPHOSP_ITS ---
History of Present Illness Date of Service: 02/03/22 Chief Complaint: Left arm numbness This is a 51-year-old female with no pertinent past medical history and not on prescription medications presents to the emergency department for evaluation of left arm numbness. Patient states when she was at work around 13:00 she developed sudden onset of left arm heaviness, numbness with tingling of her fingers. She experience pain due to heaviness of the left arm. No history of similar complaints. Patient states is lasted for about 2 hours and then subsided. She had another episode at 18:00 which lasted for approximately 30 minutes. Patient again had an episode at 21:00 and she decided to present for further evaluation. Patient states she had intermittent blurring of her vision when she was in the shower prior to presentation. Also had frontal headache with dizziness, lightheadedness. No history of hypertension, diabetes or rhythm disorders. No history of stroke. No motor extremity weakness, no facial droop, no jerking movement of extremities, no tongue bite, no urinary or bowel incontinence, no loss of consciousness. Patient denies fever, chills, chest discomfort, palpitations, shortness of breath, abdominal pain, changes in urinary or bowel habits. In the emergency department, CT head concerning for focus of hypoattenuation in the right parieto-occipital region concerning for acute infarct. Review of Systems Constitutional: Constitutional: Reports no additional constitutional compla ints Cardiovascular: Cardiovascular: Reports no additional cardiovascular complaints Respiratory: Respiratory: Reports no additional respiratory complaints Gastrointestinal: Gastrointestinal: Reports no additional gastrointestinal complaints Genitourinary: Genitourinary: Reports no additional female genitourinary complaints Musculoskeletal: Musculoskeletal: Reports no additional musculoskeletal complaints, Reports numbness and Reports tingling Neurologic: Reports numbness and Reports tingling PMFSH Medical History Antral ulcer Bilateral mastodynia Family history of breast cancer H. pylori infection Family History Maternal Aunt No problems noted. Surgical History H/O esophagogastroduodenoscopy H/O hemorrhoidectomy H/O umbilical hernia repair History of hysterectomy History of tubal ligation Social History Household Members: Family Housing: Apartment Do you presently have visiting nurse or other home services: No Alcohol intake: never Smoked in Last 30 Days: No Use of substances other than those prescribed or required for medical reasons: No Advance Directives: No Advance Directives Information Provided: Yes Patient : No service: No Current occupational status: employed Meds Allergies Allergy/AdvReac Type Severity Reaction Status Date / Time ibuprofen [From MOTRIN] Allergy Unknown GASTRITIS Verified 12/31/21 16:16 Motrin Allergy Unknown nausea and Uncoded 12/31/21 16:16 vomiting Active Medications: Current Medications Acetaminophen (Acetaminophen 325 Mg Tablet) 650 mg PO Q6H PRN PRN Reason: Pain, Mild (Pain Scale 1-3) Atorvastatin Calcium (Atorvastatin Calcium 40 Mg Tablet) 40 mg PO ONCE ONE Stop: 02/03/22 03:10 Enoxaparin Sodium (Enoxaparin Sodium 40 Mg/0.4 Ml Syringe) 40 mg SUBCUT DAILY KARTHIK Melatonin (Melatonin 3 Mg Tablet) 6 mg PO BEDTIME PRN PRN Reason: Insomnia Ondansetron HCl (Ondansetron Hcl 4 Mg/2 Ml Vial) 4 mg IVPUSH Q8H PRN PRN Reason: Nausea and Vomiting Home Medications Medication Instructions Recorded Confirmed Last Taken Type acetaminophen 300 mg-codeine 30 mg 1 tab PO Q8H PRN Pain (Scale Score 02/10/20 12/31/21 Unknown History tablet 4-6) acetaminophen 325 mg capsule 325 mg PO QID PRN Fever Or Pain 02/10/20 12/31/21 Unknown History clonazepam 2 mg tablet 2 mg PO TID 02/10/20 12/31/21 Unknown History dicyclomine 10 mg capsule 10 mg PO QID 02/10/20 12/31/21 Unknown History gabapentin 800 mg tablet 800 mg PO BID 02/10/20 12/31/21 Unknown History hydroxyzine HCl 10 mg tablet 10 mg PO TID PRN Itching 02/10/20 12/31/21 Unknown History mirabegron 25 mg tablet,extended 25 mg PO DAILY 01/02/21 12/31/21 Unknown History release 24 hr (Myrbetriq) sumatriptan succinate 50 mg tablet 50 mg PO migraine 03/01/21 12/31/21 Unknown History Physical Exam Vital Signs and Narrative: Vital Signs: Last Vital Signs Temp 98.6 F 02/02/22 23:56 Pulse 74 02/02/22 23:56 Resp 16 02/02/22 23:56 BP 127/78 02/02/22 23:56 Pulse Ox 99 02/02/22 23:56 O2 Del Method 02/02/22 23:56 BMI result Body Mass Index 24.9 Middle-aged female lying in bed in no distress Neck supple, no JVD, left trapezius tenderness Regular rate and rhythm, S1-S2 heard Regular breath sounds bilaterally, no wheezing or crackles appreciated Abdomen soft nontender, no guarding, no rigidity Patient is awake, alert and oriented to self, place, time and person ; no pronator drift, no nystagmus, Brennan of 5 in bilateral upper and lower extremity, tongue and uvula midline Psych: Normal mood No pedal edema Results Labs CBC and Chem 7: 02/02/22 23:21 02/02/22 23:21 Labs: Laboratory Results - last 24 hr 02/02/22 02/02/22 02/02/22 23:21 23:21 23:21 MCV 88.4 MCH 29.8 MCHC 33.7 RDW 11.9 Plt Count 280 MPV 10.1 Immature Gran % (Auto) 0.3 Neut % (Auto) 55.5 Lymph % (Auto) 30.5 [place] % (Auto) 8.1 Eos % (Auto) 4.9 H Baso % (Auto) 0.7 Lymph # (Auto) 2.1 [place] # (Auto) 0.6 Eos # (Auto) 0.3 Baso # (Auto) 0.1 Abs Immat Gran (auto) 0.02 Absolute Neuts (auto) 3.8 Absolute Nucleated RBC 0.000 Nucleated RBC % (auto) 0.0 ESR Anion Gap 15 Estim Creat Clear Calc 88.7 Estimated GFR > 60 Random Glucose 108 Calcium 9.9 Total Bilirubin 0.8 AST 19 ALT 17 Alkaline Phosphatase 89 Total Creatine Kinase 165 H Troponin I High Sens < 3.5 C-Reactive Protein 0.15 Total Protein 7.3 D Albumin 4.7 D 02/03/22 00:48 MCV MCH MCHC RDW Plt Count MPV Immature Gran % (Auto) Neut % (Auto) Lymph % (Auto) [place] % (Auto) Eos % (Auto) Baso % (Auto) Lymph # (Auto) [place] # (Auto) Eos # (Auto) Baso # (Auto) Abs Immat Gran (auto) Absolute Neuts (auto) Absolute Nucleated RBC Nucleated RBC % (auto) ESR 7 Anion Gap Estim Creat Clear Calc Estimated GFR Random Glucose Calcium Total Bilirubin AST ALT Alkaline Phosphatase Total Creatine Kinase Troponin I High Sens C-Reactive Protein Total Protein Albumin Imaging Radiologist's Impressions: Impressions Head CT 02/03/22 01:41 IMPRESSION: Focal region of loss of pineda-white differentiation in the right parieto-occipital region, raising concern for acute infarct. Further evaluation with MRI is recommended. This critical result was discussed with Baldemar Davies on 02/03/2022 2:06 AM, and it was ascertained that the content and urgency of the report was understood at the time of direct communication. Chest CT 02/03/22 01:42 IMPRESSION: 1. No acute intrathoracic findings. 2. Chronic appearing changes as noted above. Head/Neck CTA 02/03/22 01:42 IMPRESSION: 1. No hemodynamically significant stenosis in the major arteries of the neck. No large vessel occlusion or significant stenosis in the intracranial circulation. 2. Redemonstrated focus of hypoattenuation in the right parieto-occipital region, concerning for a region of acute infarct. As noted on the recently noncontrast exam, further evaluation with MRI is recommended. Findings discussed with Baldemar Davies on 02/03/2022 2:06 AM. Assessment and Plan (1) Stroke: Status: Acute (2) Left arm numbness: Status: Acute Plan This is a 51-year-old female with no pertinent past medical history and not on prescription medications presents to the emergency department for evaluation of left arm numbness. #.? 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 Obtaining MRI of the brain.? Consulted Neurology, appreciate assistance.?Patient received aspirin 162 mg in the ER, also administered high-intensity statin.? Obtain lipid panel, A1c and echo to complete workup. DVT prophylaxis: Lovenox 40 mg daily Full code Cardiac diet after patient passes bedside swallow screen Admit as inpatient for stroke workup.? MRI and neurology consult pending Quality Stroke Does the patient have a stroke diagnosis?: Yes Reason for No Anti-thrombotic by Day Two: N/A - Med Ordered VTE Prior VTE?: No VTE Risk Level:: Medical - low VTE Device Contraindication: Treatment Not Indicated VTE Drug Contraindication: N/A - Med Ordered
[2022-02-03 03:51] VITALS: BP 149/84; PULSE 71; RESP 15; TEMP 36.4; O2SAT 99
[2022-02-03 04:08] LABS: Appearance Urine Clear; Color Urine Yellow; Glucose Urine UA Negative (Negative); Leukocyte Esterase Urine Negative (Negative); Nitrite Urine Negative (Negative); PH 5.5 (5.0-9.0); Specific Gravity - Urine >= 1.030 (1.005-1.025); Urine Blood Negative (Negative); Urine Ketones Negative (Negative); Urine Protein Negative (Neg-Trace)
[2022-02-03 04:11] LABS: Bacteria Urine 1+ (None Seen); Hyaline Casts Urine 0-2 /LPF (0-2); RBC Urine 0-2 /HPF (0-2); WBC Urine 0-5 /HPF (0-5)
--- NOTE | 2022-02-03 04:25 | PC.NURSE ---
this rn performed swallow eval on pt. pt reports feeling dizzy and feeling as though something feels tight/ uncomfortable while swallowing. SpO2 98-99% RA. Dr. العراقي notified at this time. swallow eval failed. MD will be placing consult orders. pt to remain NPO at this time. PO meds held per Dr. العراقي
[2022-02-03 04:45] LABS: Influenza A PCR NEGATIVE (Negative); Influenza B PCR NEGATIVE (Negative); Resp Syncy Virus RNA Qual PCR NEGATIVE (Negative); SARS COV2 PCR INHOUSE NEGATIVE (Negative)
[2022-02-03] MEDS: Ketorolac Tromethamine 30 MG/ML VIAL IVPUSH (05:08)
[2022-02-03 06:53] LABS: MANUAL DIFF FLAG NO
[2022-02-03 07:00] LABS: Basophils Absolute Auto 0.1 X10*3/uL (0.0-0.2); Basophils Percent Auto 0.8 % (0-2); Eosinophils Absolute Auto 0.3 X10*3/uL (0.0-0.4); Eosinophils Percent Auto 5.4 % (0-4); Hematocrit 38.8 % (37.0-47.0); Imm Gran Abs Auto 0.01 X10*3/uL (0.00-0.03); Imm Gran Pct Auto 0.2 % (0.0-0.4); Lymphocytes Absolute Auto 1.7 X10*3/uL (1.2-4.9); Mean Corpuscular HGB Conc 33.5 g/dl (31.0-35.0); Mean Corpuscular Hemoglobin 29.5 pg (27.0-33.0); Mean Platelet Volume 10.1 fL (9.4-12.3); Monocytes Absolute Auto 0.6 X10*3/uL (0.1-1.2); Monocytes Percent Auto 9.3 % (2-11); Neutrophils Absolute Auto 3.3 x10*3/uL (2.0-8.3); Neutrophils Percent Auto 55.3 % (45-73); Platelet Count 233 X10*3/uL (160-400); Red Blood Count 4.41 X10*6/uL (4.20-5.50); Red Cell Distribution Width 11.9 % (11.0-16.0); White Blood Count 5.9 X10*3/uL (4.8-10.8)
[2022-02-03 07:23] VITALS: BP 124/86; PULSE 67; RESP 16; TEMP 36.4; O2SAT 98
[2022-02-03 07:50] LABS: Estimated Average Glucose 91 mg/dL; Hemoglobin A1c % 4.8 %
[2022-02-03 08:01] LABS: Anion Gap 6 (12-20); Blood Urea Nitrogen 12 mg/dL (9-16); Calcium 9.5 mg/dL (8.4-10.2); Carbon Dioxide 24 mmol/L (22-29); Chloride 108 mmol/L (96-108); Creatinine Clr Calc Pharmacy 99.5; Estimated Glomerular Filt Rate > 60; Glucose Random 96 mg/dL (60-115); Potassium 3.9 mmol/L (3.3-5.1); Sodium 134 mmol/L (135-145)
--- NOTE | 2022-02-03 08:52 | MHC.CM.PN ---
Interview conducted w/SO, Matthew (phone number on file accurate), Matthew indicates always available, please call for anything. Patient lives alone in third floor apartment. Previously independent, drives, no prior equipment or services, still employed. Patient's car in parking lot; if unable to transport self home, Matthew stated if she is unable to obtain ride home, please call him and he will arrange a ride for her. Plan is home (? services?). CM to follow.
[2022-02-03] MEDS: Enoxaparin Sodium 40 MG/0.4 ML SYRINGE SUBCUT (08:53)
[2022-02-03 10:07] LABS: Cholesterol 187 mg/dL; HDL Cholesterol 50 mg/dL; LDL Cholesterol Calculated 121 mg/dl; Triglycerides 82 mg/dL
--- NOTE | 2022-02-03 10:14 | PHA.MEDREC ---
Pharmacy Consult ? Medication Reconciliation Pharmacy has completed the medication reconciliation. SPOKE WITH PT. SHE TAKES 3 TYLENOL EACH MORNING MOSTLY AND THEN 2 MORE IN THE AFTERNOON IF NEEDED.
--- NOTE | 2022-02-03 10:32 | PM.NEUROCN ---
History of Present Illness Data of Consult Service Date: 02/03/22 Primary Care Provider: Nonstaff Physician HPI Reason for consult: Left arm numbness 51 years old woman who came to hospital with left arm numbness and pain. It started yesterday when she notice numb feeling in left shoulder area and heaviness of arm and hand. It took few minutes to extend to the hand. She also noted that her whole arm was he keep your painful and she was using her right hand to massage her left arm. She was also having almost daily headache lasting for many hours every day and sometime waking her up in the middle of night. Each time headache would last for many hours. She had hysterectomy in the past but still had ovaries. There was no speech or language difficulty or any recent trauma. Review of Systems Review of Systems: No recent cold or flu-like illness PMFSH Past Medical History Medical History Antral ulcer Bilateral mastodynia Family history of breast cancer H. pylori infection Family History Family History Maternal Aunt No problems noted. Surgical History Surgical History H/O esophagogastroduodenoscopy H/O hemorrhoidectomy H/O umbilical hernia repair History of hysterectomy History of tubal ligation Social History Social History Household Members: Family Housing: Apartment Do you presently have visiting nurse or other home services: No Alcohol intake: never Smoked in Last 30 Days: No Use of substances other than those prescribed or required for medical reasons: No Advance Directives: No Advance Directives Information Provided: Yes Patient : No service: No Current occupational status: employed Meds Allergies Allergy/AdvReac Type Severity Reaction Status Date / Time ibuprofen [From MOTRIN] Allergy Unknown GASTRITIS Verified 12/31/21 16:16 Motrin Allergy Unknown nausea and Uncoded 12/31/21 16:16 vomiting Active Medications: Current Medications Acetaminophen (Acetaminophen 325 Mg Tablet) 650 mg PO Q6H PRN PRN Reason: Pain, Mild (Pain Scale 1-3) Enoxaparin Sodium (Enoxaparin Sodium 40 Mg/0.4 Ml Syringe) 40 mg SUBCUT DAILY KARTHIK Last Admin: 02/03/22 08:53 Dose: 40 mg Melatonin (Melatonin 3 Mg Tablet) 6 mg PO BEDTIME PRN PRN Reason: Insomnia Morphine Sulfate (Morphine Sulfate 2 Mg/Ml Cartridge) 2 mg IVPUSH Q4H PRN; Protocol PRN Reason: Pain, Severe (Pain Scale 7-10) Ondansetron HCl (Ondansetron Hcl 4 Mg/2 Ml Vial) 4 mg IVPUSH Q8H PRN PRN Reason: Nausea and Vomiting Pharmacy Consult (Consult Rx Perform Med Rec) 1 each MISCELLANE ONCE PRN PRN Reason: Consult order Home Medications Medication Instructions Recorded Confirmed Last Taken Type acetaminophen 325 mg capsule 650 mg PO BID PRN Fever Or Pain 02/10/20 02/03/22 Unknown History gabapentin 800 mg tablet 800 mg PO BID PRN Pain, Moderate 02/10/20 02/03/22 Unknown History sumatriptan succinate 50 mg tablet 50 mg PO NEEDED migraine 03/01/21 02/03/22 Unknown History acetaminophen 325 mg tablet 975 tab PO DAILY 02/03/22 02/03/22 Unknown History buspirone 5 mg tablet 5 mg PO DAILY@1400 anxiety 02/03/22 02/03/22 Unknown History cyclobenzaprine 10 mg tablet 1 tab PO DAILY PRN muscle spasm 02/03/22 02/03/22 Unknown History linaclotide 72 mcg capsule 72 mcg PO DAILY PRN Stomach Upset 02/03/22 02/03/22 Unknown History (Linzess) lorazepam 0.5 mg tablet 1 tab PO BID PRN anxiety 02/03/22 02/03/22 Unknown History Physical Exam Vital Signs: Vital Signs: Last Vital Signs Temp 97.6 F 02/03/22 07:23 Pulse 67 02/03/22 07:23 Resp 16 02/03/22 07:23 BP 124/86 02/03/22 07:23 Pulse Ox 98 02/03/22 07:23 O2 Del Method 02/03/22 07:23 BMI result Body Mass Index 24.9 Neuro: Other: She is alert and awake with normal spontaneity of speech fluency comprehension and affect. Pupils are equal round reactive to light and extraocular muscles are intact. Visual diaz are full. Face is symmetrical. Tongue was midline. There is no pronator drift. Blecgr-qm-wyfp testing is normal. Deep tendon reflexes are trace with flexor plantars. Speech is normal. Results Labs CBC & Chem 7: 02/03/22 06:45 02/03/22 06:44 Labs: Short CBC 02/02/22 02/03/22 Range/Units 23:21 06:45 WBC 6.8 5.9 (4.8-10.8) X10*3/uL Hgb 13.4 13.0 (12.0-16.0) g/dl Hct 39.8 38.8 (37.0-47.0) % Plt Count 280 233 (160-400) X10*3/uL BMP 02/02/22 02/03/22 23:21 06:44 Sodium 141 134 L Potassium 3.8 3.9 Chloride 106 108 Carbon Dioxide 24 24 BUN 14 12 Creatinine 0.73 0.65 Calcium 9.9 9.5 Cardiac Enzymes 02/02/22 Range/Units 23:21 Total Creatine Kinase 165 H (26-140) U/L Liver Function 02/02/22 Range/Units 23:21 Total Bilirubin 0.8 (0.0-1.0) mg/dL AST 19 (5-31) U/L ALT 17 (0-31) U/L Alkaline Phosphatase 89 (39-117) U/L Albumin 4.7 D (3.5-5.0) g/dL Urine 02/03/22 Range/Units 03:58 Urine Color Yellow Urine Appearance Clear Urine pH 5.5 (5.0-9.0) Ur Specific [place] >= 1.030 H (1.005-1.025) Urine Protein Negative (Neg-Trace) mg/dL Urine Glucose (UA) Negative (Negative) mg/dL Noncontrast head CT and CTA of brain and neck were reviewed. No significant abnormality was noted. Assessment and Plan (1) Left arm numbness: Status: Acute 51 years old woman came to hospital with left arm numbness heaviness and aching. She was also having almost daily headaches lasting for many hours sometimes waking her up at night. Her examination was nonfocal. Head CT was reviewed and I am not sure if there is any significant abnormality. Overall suspicion is of status migrainosus and complex migraine. In this age group, demyelinating disease is another possibility. She denied any significant neck pain. For now my recommendation is to obtain an MRI of brain to look at the abnormality indicated by the radiologist. I also recommend obtaining MRI of cervical spine without contrast as cervical radiculopathy could be another reason for left arm numbness and especially pain. Procedures Date of Service Date of Service: 02/03/22
--- NOTE | 2022-02-03 10:32 | PM.EVENT ---
Event Note Date of Service: 02/03/22 Event Note: Day Team Follow up 51 yo F with no significant risk factors for CVA who presents with a day history of L arm heaviness / sensory issues. Imaging studies reveal concern over acute CVA. seen this AM, no new symptoms reported Neuro consult pending Speech eval pending continue tele check lipids asa 81 daily echo and further work up per neuro eval Remainder per H&P
--- NOTE | 2022-02-03 15:39 | PC.NURSE ---
Dr ordered a swollow test and pt was able to drink water with no difficulties.
[2022-02-03] MEDS: Acetaminophen 325 MG TABLET 650 MG PO ×2 (15:43→23:11)
[2022-02-03 15:48] VITALS: BP 137/92; PULSE 86; RESP 18; TEMP 36.6; O2SAT 100
[2022-02-03 21:33] VITALS: BP 139/91; PULSE 68; RESP 16; TEMP 36.6; O2SAT 97
[2022-02-03] MEDS: Morphine Sulfate 2 MG/ML CARTRIDGE IVPUSH (22:28)
[2022-02-03 23:22] VITALS: BP 120/72; PULSE 62; RESP 18; TEMP 36.4; O2SAT 97
[2022-02-04 03:45] VITALS: BP 120/66; PULSE 69; RESP 20; TEMP 36.2; O2SAT 97
[2022-02-04] MEDS: Acetaminophen 325 MG TABLET 650 MG PO ×2 (05:57→12:00)
--- NOTE | 2022-02-04 07:00 | CA_ITS ---
Transthoracic Echocardiogram Patient (Last, First, Middle): Arlet Lara, Gender: Female Date of : 1970 Age: 51 Procedure Date: 02/04/2022 Procedure Type: Transthoracic Echocardiogram Location: [facility] [place] Height: 170.18 cm Weight: 72.12 kg BSA: 1.83 m2 Heart Rate: bpm BP: 120 / 66 mmHg Patient Flow Coordinator: Referring MD: Arash العراقي MD Dust Sampler: Harmeet Sellers MD Symptoms: stroke work up Study Quality: Good ECG Rhythm: Sinus Conclusions: - Essentially normal study but intracardiac shunting cannot be ruled out on this study Findings Left Ventricle Normal left ventricular size, thickness, and systolic function. The visually estimated ejection fraction is between 60-65%. Diastolic function is normal for age. Right Ventricle Normal right ventricular cavity size and systolic function. Atria Both atria are normal in size. Interatrial shunt cannot be excluded. Aortic Valve Normal aortic valve structure and function. There is no aortic valve stenosis. There is no aortic valve regurgitation. Mitral Valve Normal mitral valve structure and function. There is trace mitral valve regurgitation. There is no mitral valve stenosis. Pulmonic Valve The pulmonic valve is likely normal. There is no pulmonic valve regurgitation. Tricuspid Valve Normal tricuspid valve structure. There is no tricuspid valve regurgitation. Great Vessels All visible segments of the aorta are normal in size. The pulmonary artery was not well visualized. Venous The inferior vena cava is normal in size and collapses greater than 50% with inspiration. Pericardium/Pleural There is no evidence of pericardial effusion. Prior Study Comparison No prior study available for comparison. Recommendations, Care & Conclusions Consider a ZACKARY if clinically appropriate. Recommend contrast study to evaluate intracardiac shunting. Measurements 2D Linear Measurements IVSd: 0.99 0.6-0.9/0.6-1.0 cm LVIDd: 3.49 3.9-5.3/4.2-5.9 cm LVIDd Index: 1.91 2.4-3.2/2.2-3.1 cm/m2 LVIDs: 2.36 2.0-3.6 cm LVPWd: 0.98 0.7-1.1 cm Ao Root: 3.40 2.1-3.5 cm LA Diam: 2.40 2.7-3.8/3.0-4.0 cm LAIDs Index: 1.31 1.5-2.3 cm/m2 LV Mass: 124.98 67-162/88-224 g LV Mass Index: 68.30 43-95/49-115 g/m2 LVOT Diam: 1.90 3.0+(-)1.3 cm Mitral Valve MV Pk E: 0.57 MV PK A: 0.69 MV Decel Time: 195.00 E/A: 0.80 E'Lateral: 6.85 E'Medial: 5.44 E/E' Med: 10.60 E/E' Lat: 8.40 PHT: 57.00 MVA PHT: 3.86 Decel Fleming: 2.94 Aortic Valve AoV Pk Isidoro: 1.19 AoV Mn Isidoro: 0.74 AoV VTI: 0.27 AoV Pk Grad: 6.00 Aov Mn Grad: 3.00 DEBORA Cont.VTI: 2.00 LVOT LVOT Pk Isidoro: 0.89 LVOT Mn Isidoro: 0.56 LVOT VTI: 0.19 LVOT Pk Grad: 3.00 LVOT Mn Grad: 2.00 LVOT Diam: 1.90 LVOT Area: 2.84 Diastolic Function MV Pk E: 0.57 MV Pk A: 0.69 E/A: 0.80 E'Medial: 5.44 E/E' Med: 10.60 E' Laterial: 6.85 E/E' Lat: 8.40 Right Ventricle TAPSE (mm): 20.00 TVS' Isidoro: 11.00 Tricuspid Valve TR Pk Isidoro: 1.91 TR Pk Grad: 15.00 RA Press: 3.00 RVSP: 18.00 Great Vessels Aorta Ao Root-2D: 3.40 2.0-3.7 cm Ao Asc: 3.20 2.1-3.4 cm Pulmonary Valve PV Pk Isidoro: 0.85 Peak PV Grad: 3.00 Updated in Other Vendor System with Status of Final Harmeet Sellers MD electronically signed on 02/04/2022 4:12:37 PM with status of Final
[2022-02-04 07:39] LABS: Cholesterol 201 mg/dL; HDL Cholesterol 48 mg/dL; LDL Cholesterol Calculated 133 mg/dl; Triglycerides 103 mg/dL
[2022-02-04 08:00] VITALS: BP 107/74; PULSE 72; RESP 16; O2SAT 93
[2022-02-04] MEDS: Omeprazole 20 MG CAPSULE.DR PO ×2 (08:41→19:39)
[2022-02-04] MEDS: Aspirin Enteric Coated 81 MG TABLET.DR PO (08:41)
[2022-02-04] MEDS: Enoxaparin Sodium 40 MG/0.4 ML SYRINGE SUBCUT (08:42)
[2022-02-04 11:45] VITALS: BP 111/69; PULSE 81; RESP 20; TEMP 36.7; O2SAT 98
--- NOTE | 2022-02-04 14:13 | P.PNIM_ITS ---
Subjective Subjective Date of Service: 02/04/22 Interval History: cc: left arm pain and numbness interval history:unchanged Cardiovascular Cardiovascular: Reports no additional cardiovascular complaints Respiratory Respiratory: Reports no additional respiratory complaints Physical Exam Vital Signs: Vital Signs: Last Vital Signs Temp 98.0 F 02/04/22 11:45 Pulse 81 02/04/22 11:45 Resp 20 02/04/22 11:45 BP 111/69 02/04/22 11:45 Pulse Ox 98 02/04/22 11:45 O2 Del Method 02/04/22 08:00 BMI result Body Mass Index 24.9 General: AO X 3, no acute distress Resp: CTA bilateral, no accessory muscles used CVS: S1,S2,RRR GI: soft, non tender, non distended Neuro: motor grossly intact, alert Psych: appropriate affect, appropriate insight Objective Data Active Medications Acetaminophen (Acetaminophen 325 Mg Tablet) 650 mg PO Q6H PRN PRN Reason: Pain, Mild (Pain Scale 1-3) Last Admin: 02/04/22 12:00 Dose: 650 mg Documented By: WILLIAM Aspirin (Aspirin Enteric Coated 81 Mg Tablet.Dr) 81 mg PO DAILY [facility] Last Admin: 02/04/22 08:41 Dose: 81 mg Documented By: WILLIAM Atorvastatin Calcium (Atorvastatin Calcium 40 Mg Tablet) 40 mg PO BEDTIME [facility] Buspirone HCl (Buspirone Hcl 5 Mg Tablet) 5 mg PO DAILY@1400 [facility] Cyclobenzaprine HCl (Cyclobenzaprine Hcl 10 Mg Tablet) 10 mg PO DAILY PRN PRN Reason: muscle spasm Enoxaparin Sodium (Enoxaparin Sodium 40 Mg/0.4 Ml Syringe) 40 mg SUBCUT DAILY [facility] Last Admin: 02/04/22 08:42 Dose: 40 mg Documented By: WILLIAM Gabapentin (Gabapentin 400 Mg Capsule) 800 mg PO BID PRN PRN Reason: Pain, Moderate Lorazepam (Lorazepam 0.5 Mg Tablet) 0.5 mg PO BID PRN PRN Reason: anxiety Melatonin (Melatonin 3 Mg Tablet) 6 mg PO BEDTIME PRN PRN Reason: Insomnia Morphine Sulfate (Morphine Sulfate 2 Mg/Ml Cartridge) 2 mg IVPUSH Q4H PRN; Pr otocol PRN Reason: Pain, Severe (Pain Scale 7-10) Last Admin: 02/03/22 22:28 Dose: 2 mg Documented By: SARAH Omeprazole (Omeprazole 20 Mg Capsule.) 20 mg PO BID [facility] Last Admin: 02/04/22 08:41 Dose: 20 mg Documented By: WILLIAM Ondansetron HCl (Ondansetron Hcl 4 Mg/2 Ml Vial) 4 mg IVPUSH Q8H PRN PRN Reason: Nausea and Vomiting Pharmacy Consult (Consult Rx Perform Med Rec) 1 each MISCELLANE ONCE PRN PRN Reason: Consult order Sucralfate (Sucralfate 1 Gm Tablet) 1 gm PO BEDTIME [facility] Labs CBC & Chem 7: 02/03/22 06:45 02/03/22 06:44 Labs: Laboratory Results - last 24 hr 02/04/22 07:06 Triglycerides 103 Cholesterol 201 LDL Cholesterol, Calc 133 HDL Cholesterol 48 Microbiology Microbiology Results: Microbiology 02/03/22 00:48 Blood Culture - Preliminary Blood - Venous No growth after 24 hours. 02/03/22 00:48 Blood Culture - Preliminary Blood - Venous No growth after 24 hours. Assessment and Plan (1) Left arm numbness: Status: Acute Plan 51-year-old female with no pertinent past medical history and not on prescription medications presented to the emergency department for evaluation of left arm numbness. Left arm intermittent numbness concerning for acute infarct vs cervical pathology follow up mri DVT prophylaxis: Lovenox 40 mg daily Full code reason for continued hospitalization:mri pending Quality Stroke Does the patient have a stroke diagnosis?: Yes Reason for No Anti-thrombotic by Day Two: N/A - Med Ordered VTE Prior VTE?: No VTE Risk Level:: Medical - low VTE Device Contraindication: Treatment Not Indicated VTE Drug Contraindication: N/A - Med Ordered
[2022-02-04] MEDS: busPIRone HCl 5 MG TABLET PO (14:33)
--- NOTE | 2022-02-04 15:25 | MHC.SLORD ---
Speech Language Pathology Order Status: Received general speech consult request. Attempted to see PT X2 today. On visit midday, briefly met with patient before she was taken for MRI. On this meeting Pt did not evidence any slurred speech, was able to fluently communicate in Persian. Re-attempted this p.m., Patient soundly sleeping. Will re-attempt eval 02/05.
[2022-02-04 15:54] VITALS: BP 114/69; PULSE 71; RESP 18; TEMP 36.6; O2SAT 96
[2022-02-04 19:12] VITALS: BP 114/80; PULSE 88; RESP 18; TEMP 36.3; O2SAT 97
[2022-02-04] MEDS: Sucralfate 1 GM TABLET PO (19:38)
[2022-02-04] MEDS: Atorvastatin Calcium 40 MG TABLET PO (19:39)
[2022-02-04] MEDS: Morphine Sulfate 2 MG/ML CARTRIDGE IVPUSH (22:44)
[2022-02-04 23:57] VITALS: BP 106/57; PULSE 64; RESP 16; TEMP 36.8; O2SAT 96
[2022-02-05 03:58] VITALS: BP 126/74; PULSE 84; RESP 14; TEMP 36.8; O2SAT 97
[2022-02-05 07:35] VITALS: BP 114/68; PULSE 60; RESP 18; TEMP 36.8; O2SAT 100
[2022-02-05] MEDS: Aspirin Enteric Coated 81 MG TABLET.DR PO (10:12)
[2022-02-05] MEDS: Omeprazole 20 MG CAPSULE.DR PO (10:13)
[2022-02-05] MEDS: Acetaminophen 325 MG TABLET 650 MG PO (10:14)
[2022-02-05] MEDS: Enoxaparin Sodium 40 MG/0.4 ML SYRINGE SUBCUT (10:19)
--- NOTE | 2022-02-05 10:55 | MHC.SL.SWA ---
Speech Pathologist Impression: Risk of Aspiration Due to: Neurological Condition Dysphasia Diet Status: Liquid Consistency and Strategies for Safe Swallow: Liquid Intake Recommendation: Thin Liquid Intake Strategies: Unrestricted Solid Food Consistency: Dietary Recommendations: Regular Additional Modifications to Solid Foods: Oral Medication Intake: Whole with Liquid Please contact the pharmacy regarding appropriate crushable or liquid drug formulations that are available whenever modified delivery is recommended. Compensatory Strategies and Precautions to be Taken for Safe Swallow: Sitting Upright (90 deg) Liquids from Cup Liquids from Straw Small Bites and Sips Supervision While Eating and Drinking for Safe Swallow: None Needed Foods to Avoid: Swallowing Recommended Treatments: Recommendation for Speech: NA:Typical Evaluation Comment: On evaluation today, patient presented with all aspects of swallow function WFL. Recommend patient continue on current diet of REGULAR with THIN liquids PILLS WHOLE with liquid. Additionally patient is fluently communicating in Hebrew with clear, articulate speech. Patient has c/o some word finding difficulties currently in Azeri, her second language, however this is unlikely to be specifically related to her CVA, so no additional assessment, swallow therapy or speech language services are recommended at this time. Frequency/Duration: n/a DC speech. Date Range for Service Req: Timeline to reassess: Evidence Specialist Clinican/Clinical Fellow: No Supervisory Statement: I have reviewed and agree with the student/clinical fellow's documentation: N/A Speech Language Pathologist: Kristin Marie M.A., CCC-INSTRUCTIONAL DEVELOPER
--- NOTE | 2022-02-05 11:06 | PM.DS ---
DS: Providers Provider Date of Service: 02/05/22 Date of admission: 02/03/22 03:09 Primary care physician: Nonstaff Physician Consults: 02/03/22 03:13 Consult to Neurology Routine Consulting Provider: [facility] Reason for consultation: stroke DS: Diagnosis Discharge Diagnosis (1) Left arm numbness: Status: Acute DS: Summary Hospital Course Hospital Course: from initial hpi: Chief Complaint: Left arm numbness This is a 51-year-old female with no pertinent past medical history and not on prescription medications presents to the emergency department for evaluation of left arm numbness.? Patient states when she was at work around 13:00 she developed sudden onset of left arm heaviness, numbness with tingling of her fingers.? She experience pain due to heaviness of the left arm.? No history of similar complaints.? Patient states is lasted for about 2 hours and then subsided.? She had another episode at 18:00 which lasted for approximately 30 minutes.? Patient again had an episode at 21:00 and she decided to present for further evaluation.? Patient states she had intermittent blurring of her vision when she was in the shower prior to presentation.? Also had frontal headache with dizziness, lightheadedness.? No history of hypertension, diabetes or rhythm disorders.? No history of stroke.? No motor extremity weakness, no facial droop, no jerking movement of extremities, no tongue bite, no urinary or bowel incontinence, no loss of consciousness.? Patient denies fever, chills, chest discomfort, palpitations, shortness of breath, abdominal pain, changes in urinary or bowel habits. In the emergency department, CT head concerning for focus of hypoattenuation in the right parieto-occipital region concerning for acute infarct. hospital course: Patient was admitted for left arm intermittent numbness concerning for acute infarct versus cervical pathology. MRI of the cervical spine was unremarkable. MRI brain showed mildly expansile T2/FLAIR hyperintensity seen in the junction of the right posterior temporal lobe and parietal occipital lobes. MRI with contrast was recommended which did not show enhancement. Diagnosis at this time is still unclear, will discharge on baby aspirin for possible CVA, patient will follow up closely with Neurology for further workup. Time Spent with Patient Time attestation: Total time spent providing and/or coordinating discharge services: Discharge coordination time: Greater than 30 minutes Quality: Safe Use of Opioids Does Pt have an Active Cancer Diagnosis on the Problem List?: No Quality: Stroke Does the patient have a stroke diagnosis?: No Physical Exam Vital Signs: Vital Signs: Last Vital Signs Temp 98.2 F 02/05/22 07:35 Pulse 60 02/05/22 07:35 Resp 18 02/05/22 07:35 BP 114/68 02/05/22 07:35 Pulse Ox 100 02/05/22 07:35 O2 Del Method 02/05/22 07:35 BMI result Body Mass Index 24.9 General: AO X 3, no acute distress Resp: CTA bilateral, no accessory muscles used CVS: S1,S2,RRR GI: soft, non tender, non distended Neuro: motor grossly intact, alert Psych: appropriate affect, appropriate insight DS: Data Data Completed and Pending Completed studies during hospitalization [Text1]: Procedures Introduction of Remdesivir Anti-infective into Peripheral Vein, Percutaneous Approach, [employer] (03/16/20) Labs on day of discharge: Preliminary micro results at discharge 02/03/22 00:48 Blood Culture - Preliminary Blood - Venous No growth after 48 hours. 02/03/22 00:48 Blood Culture - Preliminary Blood - Venous No growth after 48 hours. Discharge Plan Discharge Anticipated Discharge Date/Time: 02/05/22 11:04 Patient Disposition: Home, Self-Care Discharge Diagnosis: left arm numbness, migraine Referrals: Physician,Nonstaff [Primary Care Provider] - 1 Week Mari Myers MD [Physician] - 1 Month (abnormal MRI, lft arm numbness) Discharge Medications: New aspirin 81 mg Tablet,Delayed Release (Dr/Ec) 81 mg PO DAILY Qty: 30 0RF Continued pantoprazole 40 mg tablet,delayed release (DR/EC) 40 mg PO BID Qty: 60 1RF sucralfate 1 gram tablet 1 g PO BEDTIME Qty: 30 6RF buspirone 5 mg tablet 5 mg PO DAILY@1400 cyclobenzaprine 10 mg tablet 1 tab PO DAILY PRN (Reason: muscle spasm) lorazepam 0.5 mg tablet 1 tab PO BID PRN (Reason: anxiety) acetaminophen 325 mg tablet 975 tab PO DAILY Linzess 72 mcg capsule 72 mcg PO DAILY PRN (Reason: Stomach Upset) Rx Instructions: first thing in the am with a full glass of water acetaminophen 325 mg capsule 650 mg PO BID PRN (Reason: Fever Or Pain) gabapentin 800 mg tablet 800 mg PO BID PRN (Reason: Pain, Moderate) sumatriptan succinate 50 mg tablet 50 mg PO NEEDED Discharge Orders: Discharge Order (Routine); Ordered 02/05/22 Ordered By: Dion Womack Diet: Advance to usual diet Activity on Discharge: As tolerated Stand Alone Forms: Patient Portal Discharge page Care Plan Goals: manage migraines Health Concerns: abnormal mri Plan of Treatment: empiric baby aspirin, follow up with neurology - dr myers Assessment: see above
[2022-02-05 11:07] VITALS: BP 108/64; PULSE 65; RESP 18; TEMP 36.8; O2SAT 97
--- NOTE | 2022-02-05 11:41 | MHC.CM.PN ---
Patient has been medically cleared for dc to home today, self care.
--- NOTE | 2022-02-21 14:18 | MHC.STROKE ---
LATE ENTRY REGARDING STATIN THERAPY AT DISCHARGE FOR 02/05/22, REVIEWED CASE WITH DR COVARRUBIAS AND HER DISCHARGE DIAGNOSIS WAS LEFT SIDED NUMBNESS, MIGRAINE AND A POSSIBLE ISCHEMIC STROKE WAS DOCUMENTED WELL, THE MRI DID NOT REVEAL AN ACUTE STROKE. CTA H/N DID NOT INDICATE ATHEROSCLEROSIS, A STATIN EXCLUDED BASED ON THIS INFORMATION. SHE WILL F/U WITH HER PCP AND NEUROLOGY AND A STATIN IF NEEDED WILL BE ADDRESSED AT THAT TIME. STATIN AT DISCHARGE EXCLUDED, CONTRAINDICATED.
== END 2022-02-05 14:00 | disposition home or self-care (01) | DRG 45 ==
LOC: HO.ED 02-03 02:57 → HO.EDOVER 02-03 03:18 → HO.IMC 02-03 19:14
PROVIDERS: Family Medicine; Admitting Provider Student in an Organized Health Care Education/Training Program; Emergency Provider Emergency Medicine Emergency Medical Services; PCP Internal Medicine; Visit Provider Internal Medicine
DX: I63.9 Cerebral infarction, unspecified (principal); R20.0 Anesthesia of skin; Z20.822 Contact with and (suspected) exposure to COVID-19; Z79.899 Other long term (current) drug therapy
CPT/HCPCS: 0241U; 36415; 70450; 70496; 70498; 70551; 70552; 71260; 72141; 80048; 80053; 80061; 81001; 82550; 83036; 84484; 85025; 85652; 86140; 87040; 92610; 93005; 93306; 97161; 97166; 99285; A9585; J1650; J1885; J2270; Q9967

== ENCOUNTER 2022-02-22 10:46 | Outpatient (REF) | payer MEDICAID, SELFPAY ==
--- NOTE | ~2022-02-22 | MM_ITS ---
EXAMINATION: MM SCREENING DIGITAL BREAST TOMOSYNTHESIS, BILATERAL CLINICAL INFORMATION: Screening. Asymptomatic. The lifetime risk of breast cancer based on the Tyrer-Cuzick Model is 9.3%. COMPARISON: Mammography: 02/20/2021 and studies dating back to 01/11/2015. TECHNIQUE: Digital breast tomosynthesis is performed in both the craniocaudal and mediolateral oblique views along with computer-aided detection (CAD). Synthesized 2D images are generated from the tomosynthesis. FINDINGS: The breasts are extremely dense, which lowers the sensitivity of mammography (ACR BI-RADS breast composition Category d). There is a stable parenchymal pattern of the right breast. There is multiplicity and bilaterality of calcifications. About the deep superior aspect of the left breast approximately 12 o'clock position there is a grouping of calcifications for which spot magnification views are recommended. MM/MM tomosynthesis screening BI IMPRESSION: Grouping of calcifications superior aspect of the left breast for further evaluation. ASSESSMENT: BI-RADS 0: Incomplete - Need Additional Imaging Evaluation RECOMMENDATION: 1. Additional views of the left breast. 2. Targeted ultrasound if warranted after review of the additional views. 3. Radiology department staff will contact the patient for additional imaging. This patient's information was entered into a reminder system with a target due date for their next mammogram.
== END 2022-02-22 10:47 | disposition home or self-care (01) ==
LOC: HO.MAMMO 10:46
PROVIDERS: PCP Internal Medicine; Visit Provider Internal Medicine
DX: Z12.31 Encounter for screening mammogram for malignant neoplasm of breast (principal)
CPT/HCPCS: 77063; 77067

== ENCOUNTER 2022-03-11 14:55 | Outpatient (REF) | payer MEDICAID, SELFPAY ==
--- NOTE | ~2022-03-11 | MM_ITS ---
EXAMINATION: MM DIAGNOSTIC DIGITAL MAMMOGRAPHY, LEFT CLINICAL INFORMATION: Recall from screening for calcifications posterior 12:00 left breast. Family history breast cancer, mother. TC score 9%. COMPARISON: Mammography: 02/22/2022, 02/21/2021, and prior exams dating back to 01/11/2015. TECHNIQUE: Digital mammography is performed in the following views: Magnification CC, magnification ML FINDINGS: The breasts are heterogeneously dense, which may obscure small masses (ACR BI-RADS breast composition Category c). The additional magnification views demonstrate a few new punctate probable benign round calcifications posterior 12:00 position. There are other similar appearing chronic calcifications anterior left breast, some with layering. Results are discussed with the patient at time of visit. MM/MM added views LT IMPRESSION: Additional views suggest probable benign punctate round calcifications posterior 12:00 position. ASSESSMENT: BI-RADS 3: Probably Benign RECOMMENDATION: Diagnostic left mammography in 6 months. This patient's information was entered into a reminder system with a target due date for their next mammogram.
== END 2022-03-11 14:56 | disposition home or self-care (01) ==
LOC: HO.MAMMO 14:55
PROVIDERS: PCP Internal Medicine; Visit Provider Internal Medicine
DX: R92.1 Mammographic calcification found on diagnostic imaging of breast (principal)
CPT/HCPCS: 77065

== ENCOUNTER 2022-03-13 09:51 | Emergency (ER) | payer MEDICAID, SELFPAY ==
[2022-03-13 09:59] VITALS: BP 124/80; PULSE 96; RESP 18; TEMP 36.9; O2SAT 98; BMI 25.0
--- NOTE | 2022-03-13 10:27 | ED_ITS ---
HPI - URI/Sore Throat General Chief Complaint: Upper Respiratory Symptoms Stated Complaint: sore throat, headache, fever, CP Time Seen by Provider: 03/13/22 10:14 Source: patient Mode of arrival: ambulatory Limitations: no limitations History of Present Illness HPI Narrative: 51-year-old female with a past medical history of anemia, GERD, and migraines presents to the emergency department today for complaints of sore throat, body aches, chills, fever, cough, rhinorrhea, and headache starting yesterday afternoon. She said symptoms began a sore throat and progressed from there. She reports a temperature of 101.1? this morning which she took 2 Tylenol for with good effect. She denies any shortness of breath, chest pain, nausea, vomiting, or vision changes. 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 MD elicited complaint: fever, cough, sore throat and rhinorrhea Onset (ago): day(s) (1) Consistency: constant Severity: moderate Able to tolerate fluids by mouth: Yes Exacerbating factors: deep breaths Treatments prior to arrival: acetaminophen Related Data Home Medications Medication Instructions Recorded Confirmed acetaminophen 325 mg capsule 650 mg PO BID PRN Fever Or Pain 02/10/20 02/03/22 gabapentin 800 mg tablet 800 mg PO BID PRN Pain, Moderate 02/10/20 02/03/22 sumatriptan succinate 50 mg tablet 50 mg PO NEEDED migraine 03/01/21 02/03/22 acetaminophen 325 mg tablet 975 tab PO DAILY 02/03/22 02/03/22 buspirone 5 mg tablet 5 mg PO DAILY@1400 anxiety 02/03/22 02/03/22 cyclobenzaprine 10 mg tablet 1 tab PO DAILY PRN muscle spasm 02/03/22 02/03/22 linaclotide 72 mcg capsule 72 mcg PO DAILY PRN Stomach Upset 02/03/22 02/03/22 (Linzess) lorazepam 0.5 mg tablet 1 tab PO BID PRN anxiety 02/03/22 02/03/22 Previous Rx's Medication Instructions Recorded pantoprazole 40 mg tablet,delayed 40 mg PO BID #60 tabs 11/13/21 release sucralfate 1 gram tablet 1 g PO BEDTIME #30 tabs 11/13/21 aspirin 81 mg tablet,delayed 81 mg PO DAILY #30 tabs 02/05/22 release benzonatate 100 mg capsule 100 mg PO TID PRN cough #14 caps 03/13/22 Allergies Allergy/AdvReac Type Severity Reaction Status Date / Time ibuprofen [From MOTRIN] Allergy Unknown GASTRITIS Verified 03/13/22 10:02 Review of Systems Review of Systems: In addition to documented HPI above, the additional ROS was obtained: Constitutional: No Weight loss, No Fever, No Chills ENT/Mouth: No Ear Pain, No Nasal Congestion, No Sinus Pain, No Hoarseness, No Swallowing Difficulty Cardiovascular: No Chest Pain, No SOB Respiratory: No Sputum, No Wheezing Gastrointestinal: No Nausea, No Vomiting, No Diarrhea, No Constipation, No Abdominal pain Genitourinary: No Dysuria, No Urinary Frequency, No Hematuria, No Urinary Incontinence/retention, No Urgency, No Flank Pain Musculoskeletal: No joint pain, No Joint Swelling Skin: No Skin Lesions, No rash Neuro: No Weakness, No Numbness, No Paresthesias Yes all other systems are reviewed and are negative [facility], [facility] Past Medical History Attestation statement: The following information was validated with the patient. Source: old records reviewed Medical History Antral ulcer Bilateral mastodynia Family history of breast cancer H. pylori infection Surgical History H/O esophagogastroduodenoscopy H/O hemorrhoidectomy H/O umbilical hernia repair History of hysterectomy History of tubal ligation Family History Family History Maternal Aunt No problems noted. Social History Social History Household Members: Family Housing: Apartment Do you presently have visiting nurse or other home services: No Alcohol intake: never Patient Tobacco Use Status: Never used Tobacco e-Cigarette/Vaping Use: Never Used Advance Directives: No Advance Directives Information Provided: No Patient : No service: No Current occupational status: employed Physical Exam Vital Signs: Vital Signs: Last Vital Signs Temp 98.5 F 03/13/22 09:59 Pulse 78 03/13/22 11:47 Resp 16 03/13/22 11:47 BP 137/86 03/13/22 11:47 Pulse Ox 98 03/13/22 11:47 O2 Del Method 03/13/22 11:47 BMI result Body Mass Index 25.0 Nursing notes and vital signs reviewed. GENERAL APPEARANCE: A&0 x 4, generally well appearing, no acute distress HENMT: Normal to inspection, atraumatic, face symmetrical. Normal external ears, nose, and oropharynx clear. EYE: PERRLA, EOM intact, structures appear normal NECK: Supple without lymphadenopathy. No stiffness or restricted ROM. CHEST: Normal to inspection HEART: Normal rate and regular rhythm, normal S1/S2, no M/R/G LUNGS: LS CTA, moving air well. Able to speak in complete sentences. No crackles, wheezes, or rhonchi auscultated ABDOMEN: Soft, nontender, nondistended. Normal bowel sounds noted BACK: No CVAT, no obvious deformity EXTREMITIES: Moving all extremities without difficulty. No cyanosis, clubbing, or edema. Normal capillary refill. NEUROLOGICAL: Alert and oriented, moving all 4 extremities with equal strength. CN not formally tested but appearing grossly intact. Observed to ambulate with normal gait. Cognition normal SKIN: Warm and dry without any lesions, rash, or visible sores PSYCH: Cooperative, normal affect, normal thought process Course Course Course Narrative: And rule in/out COVID, influenza, RSV, or strep. Medical Decision Making Medical Decision Making [facility] Narrative: 51-year-old female with a past medical history of anemia, GERD, and migraines presents to the emergency department today for complaints of sore throat, body aches, chills, fever, cough, rhinorrhea, and headache starting yesterday afternoon. She said symptoms began a sore throat and progressed from there. She reports a temperature of 101.1? this morning which she took 2 Tylenol for with good effect. Serology is positive for Covid-19 and negative for influenza, and RSV. Patient is safe for discharge at this time with plan to manage symptoms the [id number] Tylenol and/or cough/cold medication for relief of symptoms. HPI, PE, diagnostics, and plan discussed with patient and family with no unanswered questions at this time. Discussed with patient that she has an upper respiratory infection, most likely viral and that no prescriptions are needed at this time. Patient educated to return to the emergency department with chest pain, increased shortness of breath, cough lasting greater than 1 week, fever despite taking antipyretics, or any other concerning emergent symptoms. Recommended to follow-up with her primary care provider for further treatment and management. *Refer to Course for additional information on consultations, diagnostic interpretation, consultations, emergency department stay, conversations with patient and family, shared decision making with patient, and more information on medical decision making* Lab Data Labs: Lab Results 03/13/22 03/13/22 Range/Units 10:06 10:06 Influenza Type A (PCR) NEGATIVE (Negative) Influenza Type B (PCR) NEGATIVE (Negative) RSV RNA Qual (PCR) NEGATIVE (Negative) SARS-CoV-2 RNA (RT-PCR) POSITIVE A (Negative) S. pyogenes GrpA IVON Negative (Negative) Discharge Plan Discharge Clinical Impression: COVID Patient Disposition: Home, Self-Care Instructions: COVID-19 (Coronavirus Disease 2019) (ED) Additional Instructions: You have been diagnosed with COVID-19. This is a viral upper respiratory infection. You may manage her symptoms with [id number] Tylenol and/or xmtn-ikg-ihsmila cough/cold medication for management of fever and discomfort. There are no prescriptions necessary at this time. Prescriptions: New benzonatate 100 mg capsule 100 mg PO TID PRN (Reason: cough) Qty: 14 0RF No Action pantoprazole 40 mg tablet,delayed release (DR/EC) 40 mg PO BID Qty: 60 1RF sucralfate 1 gram tablet 1 g PO BEDTIME Qty: 30 6RF buspirone 5 mg tablet 5 mg PO DAILY@1400 cyclobenzaprine 10 mg tablet 1 tab PO DAILY PRN (Reason: muscle spasm) lorazepam 0.5 mg tablet 1 tab PO BID PRN (Reason: anxiety) acetaminophen 325 mg tablet 975 tab PO DAILY Linzess 72 mcg capsule 72 mcg PO DAILY PRN (Reason: Stomach Upset) Rx Instructions: first thing in the am with a full glass of water aspirin 81 mg Tablet,Delayed Release (Dr/Ec) 81 mg PO DAILY Qty: 30 0RF acetaminophen 325 mg capsule 650 mg PO BID PRN (Reason: Fever Or Pain) gabapentin 800 mg tablet 800 mg PO BID PRN (Reason: Pain, Moderate) sumatriptan succinate 50 mg tablet 50 mg PO NEEDED Referrals: Sarah Aj MD [Primary Care Provider] - Stand Alone Forms: Work/School Release Interventions: ED Discharge Assessment Last Done: 03/13/22 12:31 Discharge Date/Time: 03/13/22 12:31 Print Language: Korean
--- NOTE | 2022-03-13 10:34 | PC.NURSE ---
patient a/ox4 . doron . heart rate regular at 95 beat per minute . breathing even and unlabored . fine crackles noted in upper lobes . dry productive cough as reported by patient . skin moist pink and warm . labs done and sent . abdomen soft , positive bowel sounds in all four quadrants . patient aware of plan of care .
[2022-03-13 10:39] LABS: IDNOW Serial# 6674DD1D; Strep A Nucleic Acid Negative (Negative)
[2022-03-13 11:28] LABS: Influenza A PCR NEGATIVE (Negative); Influenza B PCR NEGATIVE (Negative); Resp Syncy Virus RNA Qual PCR NEGATIVE (Negative); SARS COV2 PCR INHOUSE POSITIVE (Negative)
[2022-03-13 11:47] VITALS: BP 137/86; PULSE 78; RESP 16; O2SAT 98
--- NOTE | 2022-03-13 12:29 | PC.NURSE ---
Patient a/ox4 . VSS . Went over discharge instructions as order by provider . patient to return to ED if the symptoms worsen . patient to follow up with primary care . no questions at this time .
== END 2022-03-13 12:31 | disposition home or self-care (01) ==
PROVIDERS: Emergency Provider Student in an Organized Health Care Education/Training Program; PCP Internal Medicine
DX: U07.1 COVID-19 (principal); J02.9 Acute pharyngitis, unspecified
CPT/HCPCS: 0241U; 87651; 99283; 99284

== ENCOUNTER → 2022-04-03 14:20 | Outpatient (BNVA) | payer MEDICAID, SELFPAY | PROVIDERS: PCP Internal Medicine; Referring Provider Internal Medicine; Visit Provider Surgery | DX: R92.1 Mammographic calcification found on diagnostic imaging of breast (principal); N64.4 Mastodynia | CPT/HCPCS: 99212 ==

== ENCOUNTER 2022-06-10 20:36 | Emergency (ER) | payer OTHER, SELFPAY ==
--- NOTE | ~2022-06-10 | XR_ITS ---
EXAMINATION: PELVIS AND LEFT HIP, LEFT KNEE CLINICAL INFORMATION: Pain COMPARISON: None available. TECHNIQUE: Single view pelvis with 2 additional views left hip, 4 views left knee FINDINGS: No bone, joint or soft tissue abnormality is seen XR/XR hip LT min 2V IMPRESSION: Normal left hip and left knee.
--- NOTE | ~2022-06-10 | XR_ITS ---
EXAMINATION: PELVIS AND LEFT HIP, LEFT KNEE CLINICAL INFORMATION: Pain COMPARISON: None available. TECHNIQUE: Single view pelvis with 2 additional views left hip, 4 views left knee FINDINGS: No bone, joint or soft tissue abnormality is seen XR/XR knee LT 4V IMPRESSION: Normal left hip and left knee.
[2022-06-10 20:56] VITALS: BP 133/83; PULSE 81; RESP 18; TEMP 36.8; O2SAT 96; BMI 25.5
[2022-06-10 23:27] VITALS: BP 131/74; PULSE 67; RESP 16; TEMP 36.4; O2SAT 98
--- NOTE | 2022-06-11 00:03 | ED.GENADULT ---
HPI - General Adult General Chief complaint: Extremity Injury, Lower Stated complaint: L leg pain Time Seen by Provider: 06/10/22 23:22 Source: patient, RN notes reviewed and old records reviewed Mode of arrival: ambulatory Limitations: no limitations History of Present Illness HPI narrative: 51-year-old female past medical history significant for chronic leg pain, migraines, anemia, GERD, history of left leg DVT presents for evaluation of left leg pain. Patient reports that her symptoms started 3 days ago without injury Denies any swelling or rashes. She has pain to her left leg from the left hip down to her left knee. Patient is not currently anticoagulated but reports a provoked DVT 6 years ago after a surgery She rates her pain as 8/10. Pain is worse with walking, standing or changing positions Related Data Home Medications Medication Instructions Recorded Confirmed acetaminophen 325 mg capsule 650 mg PO BID PRN Fever Or Pain 02/10/20 02/03/22 gabapentin 800 mg tablet 800 mg PO BID PRN Pain, Moderate 02/10/20 02/03/22 sumatriptan succinate 50 mg tablet 50 mg PO NEEDED migraine 03/01/21 02/03/22 acetaminophen 325 mg tablet 975 tab PO DAILY 02/03/22 02/03/22 buspirone 5 mg tablet 5 mg PO DAILY@1400 anxiety 02/03/22 02/03/22 cyclobenzaprine 10 mg tablet 1 tab PO DAILY PRN muscle spasm 02/03/22 02/03/22 linaclotide 72 mcg capsule 72 mcg PO DAILY PRN Stomach Upset 02/03/22 02/03/22 (Linzess) lorazepam 0.5 mg tablet 1 tab PO BID PRN anxiety 02/03/22 02/03/22 Previous Rx's Medication Instructions Recorded pantoprazole 40 mg tablet,delayed 40 mg PO BID #60 tabs 11/13/21 release sucralfate 1 gram tablet 1 g PO BEDTIME #30 tabs 11/13/21 aspirin 81 mg tablet,delayed 81 mg PO DAILY #30 tabs 02/05/22 release benzonatate 100 mg capsule 100 mg PO TID PRN cough #14 caps 03/13/22 tramadol 50 mg tablet 50 mg PO TID PRN pain (scale score 06/11/22 7-10) #12 tabs Allergies Allergy/AdvReac Type Severity Reaction Status Date / Time ibuprofen [From MOTRIN] Allergy Unknown GASTRITIS Verified 06/10/22 21:02 Review of Systems Constitutional: Constitutional: Reports as per HPI, Denies chills, Denies fatigue and Denies fever(s) Gastrointestinal: Gastrointestinal: Denies abdominal pain, Denies constipation and Denies vomiting Genitourinary: Genitourinary: Denies dysuria Musculoskeletal: Musculoskeletal: Denies back pain Comments: Left leg pain Neurologic: Denies focal weakness Endocrine: Endocrine: Denies fatigue PMFSH Past Medical History Medical History (Updated 06/11/22 @ 00:08 by Ambrosio Mackey) Antral ulcer Bilateral mastodynia Breast calcification, left Family history of breast cancer H. pylori infection Surgical History H/O esophagogastroduodenoscopy H/O hemorrhoidectomy H/O umbilical hernia repair History of hysterectomy History of tubal ligation Family History Family History Maternal Aunt No problems noted. Social History Social History Household Members: Family Housing: Apartment Do you presently have visiting nurse or other home services: No Alcohol intake: never Patient Tobacco Use Status: Never used Tobacco e-Cigarette/Vaping Use: Never Used Advance Directives: No Advance Directives Information Provided: No service: No Current occupational status: employed Physical Exam ED Vital Signs: Vital Signs - 24 hr 06/10/22 20:56 06/10/22 23:27 Temperature 98.2 F 97.6 F Pulse Rate 81 67 Respiratory Rate 18 16 Blood Pressure 133/83 131/74 Pulse Oximetry 96 98 Oxygen Delivery Method Room Air Room Air BMI result Body Mass Index 25.5 Const General: healthy appearing, comfortable, no acute distress, alert and awake Nutritional Appearance: well nourished Orientation/consciousness: patient oriented x3 HENMT Head: Yes normocephalic and Yes atraumatic Throat: Yes posterior oropharynx normal Eyes Eyelids: Yes eyelids normal Conjunctivae: conjunctivae normal Sclerae: sclerae normal Corneas: corneas normal Pupils: Equal, round and reactive pupils present EOM: EOMs intact bilaterally Neck Neck: Yes full ROM Resp Effort & Inspection: normal respiratory effort, able to speak in complete sentences, no audible wheezes and not labored Auscultation: clear to auscultation bilaterally Cardio Rate: regular rate Rhythm: regular rhythm GI Inspection: No distended Palpation (GI): Soft to palpation, not firm, nontender, no guarding and not rigid Auscultation: normoactive bowel sounds Back/Spine/Pelvis Other: No tenderness to the lumbar paraspinous region, negative straight leg raise bilaterally. Skin General skin exam: no rashes or lesions noted and elasticity normal Neuro General: patient oriented x3 Cranial nerves: Yes CN's II-XII intact bilaterally, Yes Equal, round and reactive pupils present and Yes Bilaterally intact EOM present Cognition (Neuro): normal cognition Extrem Other: Moving all extremities well without any obvious deformities. Patient has full range of motion to the left upper extremity hip, knee, ankle. There are no skin changes, no edema. The patient is to palpation of the left calf, left lateral thigh. There is some left hip tenderness without deformity. Course Reevaluation(s) Reevaluation #1: Patient's D-dimer negative, CPK negative. The patient likely has chronic pain in left leg. X-rays are negative. Will treat the patient's discomfort with tramadol, as she has adverse reaction to NSAIDs Time: 00:35 Medications Administered Discontinued Medications Generic Name Dose Route Start Last Admin Trade Name Freq PRN Reason Stop Dose Admin Ketorolac Tromethamine 30 mg 06/10/22 23:45 06/11/22 00:06 Ketorolac Tromethamine 30 Mg/Ml Vial IM 06/10/22 23:46 30 mg ONCE ONE Administration Medical Decision Making Medical Decision Making [facility] Narrative: 51-year-old female presents for evaluation of left leg pain. She does suffer from chronic pain and has been taking her gabapentin, Flexeril without improvement of symptoms pain will treat with Toradol IM. Unfortunately do not have ultrasound available overnight to get a DVT scan however we will get labs including a D-dimer. I have a low suspicion for DVT however given that her last DVT was provoked by surgery and she has no skin changes or edema to suggest DVT. Patient has no lumbar pain negative straight leg raise, so doubt lumbar radiculopathy. The patient's pain is most likely musculoskeletal, good x-ray left hip, left knee to evaluate for arthritis. Differential Diagnosis Leg pain Radiculopathy DVT less likely Hip bursitis Mcclellan cyst Lab Data 06/11/22 00:06 06/11/22 00:06 Labs: Lab Results 06/11/22 06/11/22 06/11/22 Range/Units 00:06 00:06 00:06 WBC 7.1 (4.8-10.8) X10*3/uL RBC 4.43 (4.20-5.50) X10*6/uL Hgb 13.3 (12.0-16.0) g/dl Hct 40.4 (37.0-47.0) % MCV 91.2 (80.0-98.0) fL MCH 30.0 (27.0-33.0) pg MCHC 32.9 (31.0-35.0) g/dl RDW 12.5 (11.0-16.0) % Plt Count 264 (160-400) X10*3/uL MPV 9.5 (9.4-12.3) fL Immature Gran % (Auto) 0.1 (0.0-0.4) % Neut % (Auto) 60.3 (45-73) % Lymph % (Auto) 26.2 (20-40) % [place]igg % (Auto) 8.2 (2-11) % Eos % (Auto) 4.5 H (0-4) % Baso % (Auto) 0.7 (0-2) % Lymph # (Auto) 1.9 (1.2-4.9) X10*3/uL [place]igg # (Auto) 0.6 (0.1-1.2) X10*3/uL Eos # (Auto) 0.3 (0.0-0.4) X10*3/uL Baso # (Auto) 0.1 (0.0-0.2) X10*3/uL Abs Immat Gran (auto) 0.01 (0.00-0.03) X10*3/uL Absolute Neuts (auto) 4.3 (2.0-8.3) x10*3/uL Absolute Nucleated RBC 0.000 (0.0-0.012) X10*3/uL Nucleated RBC % (auto) 0.0 (0.0-0.2) /100WBC PT 11.1 (10.0-13.1) SEC INR 1.0 (0.9-1.1) APTT 36.4 (26.0-36.4) SEC D-Dimer High Sensitivty < 150 NG/ML Sodium 141 (135-145) mmol/L Potassium 4.8 D (3.3-5.1) mmol/L Chloride 107 (96-108) mmol/L Carbon Dioxide 27 (22-29) mmol/L Anion Gap 12 (12-20) BUN 11 (9-16) mg/dL Creatinine 0.69 (0.5-1.4) mg/dL Estim Creat Clear Calc 101.2 Estimated GFR > 60 Random Glucose 88 (60-115) mg/dL Calcium 9.2 (8.4-10.2) mg/dL Total Creatine Kinase 61 (26-140) U/L Discharge Plan Discharge Clinical Impression: Left leg pain Patient Disposition: Home, Self-Care Instructions: Leg Pain (ED) Additional Instructions: Your blood work was reassuring. It does not appear that you have a blood clot in your left leg Tramadol for severe, breakthrough pain This may make you sleepy, did not drink alcohol or drive after taking it Prescriptions: New tramadol 50 mg tablet 50 mg PO TID PRN (Reason: pain (scale score 7-10)) Qty: 12 0RF No Action pantoprazole 40 mg tablet,delayed release (DR/EC) 40 mg PO BID Qty: 60 1RF sucralfate 1 gram tablet 1 g PO BEDTIME Qty: 30 6RF benzonatate 100 mg capsule 100 mg PO TID PRN (Reason: cough) Qty: 14 0RF buspirone 5 mg tablet 5 mg PO DAILY@1400 cyclobenzaprine 10 mg tablet 1 tab PO DAILY PRN (Reason: muscle spasm) lorazepam 0.5 mg tablet 1 tab PO BID PRN (Reason: anxiety) acetaminophen 325 mg tablet 975 tab PO DAILY Linzess 72 mcg capsule 72 mcg PO DAILY PRN (Reason: Stomach Upset) Rx Instructions: first thing in the am with a full glass of water aspirin 81 mg Tablet,Delayed Release (Dr/Ec) 81 mg PO DAILY Qty: 30 0RF acetaminophen 325 mg capsule 650 mg PO BID PRN (Reason: Fever Or Pain) gabapentin 800 mg tablet 800 mg PO BID PRN (Reason: Pain, Moderate) sumatriptan succinate 50 mg tablet 50 mg PO NEEDED
[2022-06-11] MEDS: Ketorolac Tromethamine 30 MG/ML VIAL IM (00:06)
[2022-06-11 00:11] LABS: Basophils Absolute Auto 0.1 X10*3/uL (0.0-0.2); Basophils Percent Auto 0.7 % (0-2); Eosinophils Absolute Auto 0.3 X10*3/uL (0.0-0.4); Eosinophils Percent Auto 4.5 % (0-4); Hematocrit 40.4 % (37.0-47.0); Hemoglobin 13.3 g/dl (12.0-16.0); Imm Gran Abs Auto 0.01 X10*3/uL (0.00-0.03); Imm Gran Pct Auto 0.1 % (0.0-0.4); Lymphocytes Absolute Auto 1.9 X10*3/uL (1.2-4.9); Lymphocytes Percent Auto 26.2 % (20-40); MANUAL DIFF FLAG NO; Mean Corpuscular HGB Conc 32.9 g/dl (31.0-35.0); Mean Corpuscular Volume 91.2 fL (80.0-98.0); Mean Platelet Volume 9.5 fL (9.4-12.3); Monocytes Absolute Auto 0.6 X10*3/uL (0.1-1.2); Monocytes Percent Auto 8.2 % (2-11); Neutrophils Absolute Auto 4.3 x10*3/uL (2.0-8.3); Neutrophils Percent Auto 60.3 % (45-73); Platelet Count 264 X10*3/uL (160-400); Red Blood Count 4.43 X10*6/uL (4.20-5.50); Red Cell Distribution Width 12.5 % (11.0-16.0); White Blood Count 7.1 X10*3/uL (4.8-10.8)
[2022-06-11 00:18] LABS: Prothrombin Time 11.1 SEC (10.0-13.1)
[2022-06-11 00:20] LABS: Partial Thromboplastin Time 36.4 SEC (26.0-36.4)
[2022-06-11 00:26] LABS: D Dimer High Sensitivity < 150 NG/ML
[2022-06-11 00:28] LABS: Anion Gap 12 (12-20); Blood Urea Nitrogen 11 mg/dL (9-16); Calcium 9.2 mg/dL (8.4-10.2); Carbon Dioxide 27 mmol/L (22-29); Chloride 107 mmol/L (96-108); Creatinine Clr Calc Pharmacy 101.2; Estimated Glomerular Filt Rate > 60; Glucose Random 88 mg/dL (60-115); Potassium 4.8 mmol/L (3.3-5.1); Sodium 141 mmol/L (135-145)
== END 2022-06-11 00:50 | disposition home or self-care (01) ==
PROVIDERS: Physician Assistant; Emergency Provider Student in an Organized Health Care Education/Training Program
DX: M79.605 Pain in left leg (principal); M25.552 Pain in left hip; Z79.899 Other long term (current) drug therapy
CPT/HCPCS: 36415; 73502; 73564; 80048; 82550; 85025; 85379; 85610; 85730; 96372; 99283; 99284; J1885

== ENCOUNTER 2022-07-20 01:12 | Emergency (ER) | payer OTHER, SELFPAY ==
--- NOTE | ~2022-07-20 | CT_ITS ---
EXAMINATION: CT HEAD WITHOUT CONTRAST CLINICAL INFORMATION: Headache COMPARISON: CT dated 02/03/2022 MRI dated 02/04/2022 TECHNIQUE: Contiguous axial imaging was performed from the skull base to vertex without intravenous administration of contrast. This CT examination was performed using dose optimization techniques as appropriate, variously including the following: *Automated exposure control *Adjustment of mA and/or kV according to patient size (this includes techniques or standardized protocols for targeted exams where dose is matched to indication/reason for exam; i.e. extremities or head) *Use of iterative reconstruction technique DLP: 594 mGy-cm FINDINGS: On the basis of CT, there is no appreciable change in appearance of the focal area of pineda-white matter ill-definition at the junction of the right occipitotemporal lobes. No new or additional areas of abnormal attenuation within the brain parenchyma. There is no evidence of acute intracranial hemorrhage or territorial infarction. No abnormal mass effect or midline shift is seen. No extra-axial fluid collections are identified. No hydrocephalus. No significant volume loss. No acute osseous or soft tissue abnormality. Complete opacification of the left maxillary sinus. Scattered secretions throughout the ethmoid air cells. Mastoid air cells and middle ear cavities are clear. CT/CT head/brain wo IV con IMPRESSION: * No acute intracranial pathology. * No appreciable change in appearance of the focal area of pineda-white matter ill-definition at the junction of the right occipitotemporal lobes. As recommended previously, a nonemergent follow-up MRI brain without and with contrast is recommended to further characterize and evaluate for interval change of the above described finding in the right occipitotemporal lobe.
[2022-07-20 01:16] VITALS: BP 152/94; PULSE 75; RESP 18; TEMP 36.7; O2SAT 100; BMI 25.8
[2022-07-20 01:38] LABS: Basophils Absolute Auto 0.1 X10*3/uL (0.0-0.2); Basophils Percent Auto 0.8 % (0-2); Eosinophils Absolute Auto 0.4 X10*3/uL (0.0-0.4); Eosinophils Percent Auto 6.4 % (0-4); Hematocrit 40.2 % (37.0-47.0); Hemoglobin 13.5 g/dl (12.0-16.0); Imm Gran Abs Auto 0.02 X10*3/uL (0.00-0.03); Imm Gran Pct Auto 0.3 % (0.0-0.4); Lymphocytes Absolute Auto 1.9 X10*3/uL (1.2-4.9); MANUAL DIFF FLAG NO; Mean Corpuscular HGB Conc 33.6 g/dl (31.0-35.0); Mean Corpuscular Hemoglobin 29.9 pg (27.0-33.0); Mean Corpuscular Volume 89.1 fL (80.0-98.0); Mean Platelet Volume 9.6 fL (9.4-12.3); Monocytes Absolute Auto 0.5 X10*3/uL (0.1-1.2); Monocytes Percent Auto 7.8 % (2-11); Neutrophils Absolute Auto 3.1 x10*3/uL (2.0-8.3); Neutrophils Percent Auto 52.7 % (45-73); Platelet Count 280 X10*3/uL (160-400); Red Blood Count 4.51 X10*6/uL (4.20-5.50); Red Cell Distribution Width 12.1 % (11.0-16.0); White Blood Count 5.9 X10*3/uL (4.8-10.8)
--- NOTE | 2022-07-20 01:42 | ED.HA ---
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 Patient being worked up at [facility] had an MRI done. Patient's last MRI done at [facility] showed a possible stroke in the right temporal area.. Headache that is been ongoing for the last hour. Nausea vomiting. Worse with light. Patient from home. No focal weakness. No change in coordination. No fever. No sudden that the family. No history of intracranial bleed. Related Data Home Medications Medication Instructions Recorded Confirmed acetaminophen 325 mg capsule 650 mg PO BID PRN Fever Or Pain 02/10/20 02/03/22 gabapentin 800 mg tablet 800 mg PO BID PRN Pain, Moderate 02/10/20 02/03/22 sumatriptan succinate 50 mg tablet 50 mg PO NEEDED migraine 03/01/21 02/03/22 acetaminophen 325 mg tablet 975 tab PO DAILY 02/03/22 02/03/22 buspirone 5 mg tablet 5 mg PO DAILY@1400 anxiety 02/03/22 02/03/22 cyclobenzaprine 10 mg tablet 1 tab PO DAILY PRN muscle spasm 02/03/22 02/03/22 linaclotide 72 mcg capsule 72 mcg PO DAILY PRN Stomach Upset 02/03/22 02/03/22 (Linzess) lorazepam 0.5 mg tablet 1 tab PO BID PRN anxiety 02/03/22 02/03/22 Previous Rx's Medication Instructions Recorded pantoprazole 40 mg tablet,delayed 40 mg PO BID #60 tabs 11/13/21 release sucralfate 1 gram tablet 1 g PO BEDTIME #30 tabs 11/13/21 aspirin 81 mg tablet,delayed 81 mg PO DAILY #30 tabs 02/05/22 release benzonatate 100 mg capsule 100 mg PO TID PRN cough #14 caps 03/13/22 tramadol 50 mg tablet 50 mg PO TID PRN pain (scale score 06/11/22 7-10) #12 tabs ondansetron 4 mg disintegrating 4 mg PO TID PRN nausea and 07/20/22 tablet vomiting 5 days #10 tabs Allergies Allergy/AdvReac Type Severity Reaction Status Date / Time ibuprofen [From MOTRIN] Allergy Unknown GASTRITIS Verified 06/10/22 21:02 Review of Systems Review of Systems: Positive headache Positive history of migraine Positive possible benign tumors in the brain [facility] Past Medical History Attestation statement: The following information was validated with the patient. Medical History Antral ulcer Bilateral mastodynia Breast calcification, left Family history of breast cancer H. pylori infection Surgical History H/O esophagogastroduodenoscopy H/O hemorrhoidectomy H/O umbilical hernia repair History of hysterectomy History of tubal ligation Family History Family History Maternal Aunt No problems noted. Social History Social History Household Members: Family Housing: Apartment Do you presently have visiting nurse or other home services: No Alcohol intake: never Patient Tobacco Use Status: Never used Tobacco e-Cigarette/Vaping Use: Never Used Advance Directives: No Advance Directives Information Provided: Yes service: No Current occupational status: employed Physical Exam Vital Signs: Vital Signs: Last Vital Signs Temp 98.1 F 07/20/22 01:16 Pulse 75 07/20/22 01:16 Resp 18 07/20/22 01:16 BP 152/94 H 07/20/22 01:16 Pulse Ox 100 07/20/22 01:16 O2 Del Method Room Air 07/20/22 01:16 BMI result Body Mass Index 25.8 Appearance: Alert. Oriented X3. No acute distress. Eyes: Pupils equal, round and reactive to light. ENT: Pharynx normal. Neck: Normal inspection. Neck supple. No lymph nodes noted. No crepitus CVS: Normal heart rate and rhythm. Pulses normal. Normal S1 and S2 Respiratory: No respiratory distress. Breath sounds normal. No Wheezing. No rales Abdomen: Soft and nontender. No rigidity. No distention. good BS x4 Skin: Skin warm and dry. Normal skin color. Normal skin turgor. Extremities: No lower extremity edema. Neurovascular intact to all extremities. No Lacerations. No Rash Neuro: Oriented X 3. No motor deficit. No sensory deficit. Moving all extermities. No slurred speech. Cranial nerves 2-12 intact. Rapid alternating movement intact Medications Administered Discontinued Medications Generic Name Dose Route Start Last Admin Trade Name Berenice PRN Reason Stop Dose Admin Diphenhydramine HCl 50 mg 07/20/22 01:41 07/20/22 03:00 Diphenhydramine Hcl 50 Mg/Ml Vial IVPUSH 07/20/22 01:42 50 mg ONCE ONE Administration Sodium Chloride 1,000 mls @ 999 mls/hr 07/20/22 01:45 07/20/22 03:01 Ns IV 07/20/22 02:45 999 mls/hr .Q1H1M KARTHIK Administration Ketorolac Tromethamine 15 mg 07/20/22 01:41 07/20/22 03:00 Ketorolac Tromethamine 15 Mg/Ml Vial IVPUSH 07/20/22 01:42 15 mg ONCE ONE Administration Prochlorperazine Edisylate 10 mg 07/20/22 01:41 07/20/22 03:00 Prochlorperazine Edisylate 10 Mg/2 Ml Vial IVPUSH 07/20/22 01:42 10 mg ONCE ONE Administration Medical Decision Making Medical Decision Making [facility] Narrative: Follow-up CT scan of the head was grossly negative for any acute evidence of bleeding. No acute changes. No new mass. Patient being follow-up [facility]. MRI done in January showed a possible old stroke. Patient headache is on 1 side. Associated with nausea. Very similar to previous bouts of migraine. Given migraine treatment. Symptoms resolved. Now is 04/12. Will discharge patient home. Follow up on an outpatient basis. Neurologically intact. Differential Diagnosis Migraine headache, tension headache Lab Data [facility] Lab Attestation statement: I reviewed the patient's lab results. 07/20/22 01:32 07/20/22 01:32 Labs: Lab Results 07/20/22 Range/Units 01:32 WBC 5.9 (4.8-10.8) X10*3/uL RBC 4.51 (4.20-5.50) X10*6/uL Hgb 13.5 (12.0-16.0) g/dl Hct 40.2 (37.0-47.0) % MCV 89.1 (80.0-98.0) fL MCH 29.9 (27.0-33.0) pg MCHC 33.6 (31.0-35.0) g/dl RDW 12.1 (11.0-16.0) % Plt Count 280 (160-400) X10*3/uL MPV 9.6 (9.4-12.3) fL Immature Gran % (Auto) 0.3 (0.0-0.4) % Neut % (Auto) 52.7 (45-73) % Lymph % (Auto) 32.0 (20-40) % [place] % (Auto) 7.8 (2-11) % Eos % (Auto) 6.4 H (0-4) % Baso % (Auto) 0.8 (0-2) % Lymph # (Auto) 1.9 (1.2-4.9) X10*3/uL [place] # (Auto) 0.5 (0.1-1.2) X10*3/uL Eos # (Auto) 0.4 (0.0-0.4) X10*3/uL Baso # (Auto) 0.1 (0.0-0.2) X10*3/uL Abs Immat Gran (auto) 0.02 (0.00-0.03) X10*3/uL Absolute Neuts (auto) 3.1 (2.0-8.3) x10*3/uL Absolute Nucleated RBC 0.000 (0.0-0.012) X10*3/uL Nucleated RBC % (auto) 0.0 (0.0-0.2) /100WBC Independent Historian Clinical information obtained from an independent historian. History obtained from or confirmed by: Spouse External Record Review External record reviewed: Inpatient record Prescription Management I considered prescription management with: Pain Medication Discharge Plan Discharge Clinical Impression: Migraines Patient Disposition: Home, Self-Care Instructions: Migraine Headache (ED) Prescriptions: New ondansetron 4 mg tablet,disintegrating 4 mg PO TID PRN (Reason: nausea and vomiting) 5 Days Qty: 10 0RF No Action pantoprazole 40 mg tablet,delayed release (DR/EC) 40 mg PO BID Qty: 60 1RF sucralfate 1 gram tablet 1 g PO BEDTIME Qty: 30 6RF benzonatate 100 mg capsule 100 mg PO TID PRN (Reason: cough) Qty: 14 0RF buspirone 5 mg tablet 5 mg PO DAILY@1400 cyclobenzaprine 10 mg tablet 1 tab PO DAILY PRN (Reason: muscle spasm) lorazepam 0.5 mg tablet 1 tab PO BID PRN (Reason: anxiety) acetaminophen 325 mg tablet 975 tab PO DAILY Linzess 72 mcg capsule 72 mcg PO DAILY PRN (Reason: Stomach Upset) Rx Instructions: first thing in the am with a full glass of water aspirin 81 mg Tablet,Delayed Release (Dr/Ec) 81 mg PO DAILY Qty: 30 0RF tramadol 50 mg tablet 50 mg PO TID PRN (Reason: pain (scale score 7-10)) Qty: 12 0RF acetaminophen 325 mg capsule 650 mg PO BID PRN (Reason: Fever Or Pain) gabapentin 800 mg tablet 800 mg PO BID PRN (Reason: Pain, Moderate) sumatriptan succinate 50 mg tablet 50 mg PO NEEDED
[2022-07-20] MEDS: Prochlorperazine Edisylate 10 MG/2 ML VIAL IVPUSH (03:00)
[2022-07-20] MEDS: Ketorolac Tromethamine 15 MG/ML VIAL IVPUSH (03:00)
[2022-07-20] MEDS: diphenhydrAMINE HCL 50 MG/ML VIAL IVPUSH (03:00)
[2022-07-20] MEDS: 0.9 % Sodium Chloride 1,000 ML 999 ML IV (03:01)
[2022-07-20 04:46] LABS: Anion Gap 10 (12-20); Blood Urea Nitrogen 15 mg/dL (9-16); Carbon Dioxide 27 mmol/L (22-29); Chloride 109 mmol/L (96-108); Creatinine Clr Calc Pharmacy 94.3; Estimated Glomerular Filt Rate > 60; Glucose Random 112 mg/dL (60-115); Potassium 4.5 mmol/L (3.3-5.1); Sodium 141 mmol/L (135-145)
[2022-07-20 04:55] VITALS: BP 139/86; PULSE 64; RESP 18; TEMP 37.1; O2SAT 98
== END 2022-07-20 05:02 | disposition home or self-care (01) ==
PROVIDERS: Emergency Provider Emergency Medicine Emergency Medical Services; PCP Internal Medicine
DX: G43.909 Migraine, unspecified, not intractable, without status migrainosus (principal); Z79.899 Other long term (current) drug therapy; Z79.82 Long term (current) use of aspirin
CPT/HCPCS: 36415; 70450; 80048; 85025; 96361; 96374; 96375; 99284; J1200; J1885

== ENCOUNTER 2022-10-10 14:11 | Outpatient (REF) | payer OTHER, SELFPAY ==
--- NOTE | ~2022-10-10 | MM_ITS ---
EXAMINATION: MM DIAGNOSTIC DIGITAL MAMMOGRAPHY, LEFT CLINICAL INFORMATION: 6 month follow-up probably benign left breast calcifications, 12:00 axis, posterior depth.. The lifetime risk of breast cancer based on the Tyrer-Cuzick Model is 9%. COMPARISON: Mammography: 03/11/2022, 02/22/2022, 02/20/2021, and 02/03/2020. TECHNIQUE: Digital breast imaging including tomosynthesis is performed in both the craniocaudal and mediolateral oblique views along with computer-aided detection (CAD). In addition, spot magnification views of the left breast were obtained in the CC and ML projections. FINDINGS: The breasts are heterogeneously dense, which may obscure small masses (ACR BI-RADS breast composition Category c). There are 4 post benign biopsy clips in the left breast. There are no masses or areas of parenchymal distortion. There is no skin thickening or retraction. The parenchymal pattern is stable. There are loosely grouped punctate calcifications in the 12:00 axis of the left breast, posterior depth, which are unchanged in morphology and appearance from prior exams. At least one appears to layer on the mediolateral projection, suggesting milk of calcium. These calcifications are benign. No further follow-up suggested. Results were provided to the patient at time of visit by the technologist. MM/MM diagnostic mammo unilat LT IMPRESSION: No findings suspicious for malignancy. Stable benign findings including benign left breast calcifications as detailed. Recommend the patient resume routine annual screening mammography. ASSESSMENT: BI-RADS BI-RADS 2 - Benign Findings RECOMMENDATION: 1 year F/U This patient's information was entered into a reminder system with a target due date for their next mammogram.
== END 2022-10-10 14:12 | disposition home or self-care (01) ==
LOC: HO.MAMMO 14:11
PROVIDERS: PCP Internal Medicine; Visit Provider Internal Medicine
DX: R92.8 Other abnormal and inconclusive findings on diagnostic imaging of breast (principal)
CPT/HCPCS: 77062; 77065

== ENCOUNTER → 2022-10-10 14:30 | Outpatient (BNV) | payer OTHER, SELFPAY | PROVIDERS: PCP Internal Medicine; Visit Provider Radiology Diagnostic Radiology | DX: R92.1 Mammographic calcification found on diagnostic imaging of breast (principal) | CPT/HCPCS: 77061; 77065 ==

== ENCOUNTER 2022-12-11 14:19 | Emergency (ER) | payer OTHER, SELFPAY ==
--- NOTE | ~2022-12-11 | XR_ITS ---
EXAMINATION: XR CHEST CLINICAL INFORMATION: Cough. Left-sided chest pain. COMPARISON: Chest CT 02/03/2022 and chest x-ray 11/13/2021 TECHNIQUE: 2 views of the chest were obtained. FINDINGS: Cardiac silhouette is normal in size. The lungs are adequately aerated. Asymmetric elevation of left hemidiaphragm is again noted. There is no lobar consolidation. No pleural effusion or pneumothorax. Patient is status post sternotomy. XR/XR chest 2V IMPRESSION: No acute pulmonary pathology.
--- NOTE | 2022-12-11 15:06 | ED_ITS ---
HPI - General Adult General Chief complaint: Upper Respiratory Symptoms Stated complaint: Sore Throat Vomiting Time Seen by Provider: 12/11/22 16:26 Source: patient Mode of arrival: ambulatory Limitations: no limitations History of Present Illness HPI narrative: 52 yo female with history of GERD, anemia, migraines, CVA who presents to the ER for multiple complaints. She states yesterday she started having sore throat, cough and back pain. The cough kept her up at night. She also reports burning with urination that started yesterday. No flank pain, N/V or abdominal pain. She has had some diarrhea yesterday as well but not today. No known sick contacts. She recently got her Flu shot last Friday and thought her symptoms may be due to that. MD complaint: URI and UTI symptoms Onset (ago): day(s) (1) Location: mouth, chest and back Radiation: non-radiation Severity: moderate Quality: aching Pain Consistency: intermittent Relieving factors: rest Exacerbating factors: other (coughing) Associated symptoms: cough, malaise, shortness of breath and other (back pain) Treatments prior to arrival: none Related Data Home Medications Medication Instructions Recorded Confirmed acetaminophen 325 mg capsule 650 mg PO BID PRN Fever Or Pain 02/10/20 02/03/22 gabapentin 800 mg tablet 800 mg PO BID PRN Pain, Moderate 02/10/20 02/03/22 sumatriptan succinate 50 mg tablet 50 mg PO NEEDED migraine 03/01/21 02/03/22 acetaminophen 325 mg tablet 975 tab PO DAILY 02/03/22 02/03/22 buspirone 5 mg tablet 5 mg PO DAILY@1400 anxiety 02/03/22 02/03/22 cyclobenzaprine 10 mg tablet 1 tab PO DAILY PRN muscle spasm 02/03/22 02/03/22 linaclotide 72 mcg capsule 72 mcg PO DAILY PRN Stomach Upset 02/03/22 02/03/22 (Linzess) lorazepam 0.5 mg tablet 1 tab PO BID PRN anxiety 02/03/22 02/03/22 Previous Rx's Medication Instructions Recorded pantoprazole 40 mg tablet,delayed 40 mg PO BID #60 tabs 11/13/21 release sucralfate 1 gram tablet 1 g PO BEDTIME #30 tabs 11/13/21 aspirin 81 mg tablet,delayed 81 mg PO DAILY #30 tabs 02/05/22 release benzonatate 100 mg capsule 100 mg PO TID PRN cough #14 caps 03/13/22 tramadol 50 mg tablet 50 mg PO TID PRN pain (scale score 06/11/22 7-10) #12 tabs ondansetron 4 mg disintegrating 4 mg PO TID PRN nausea and 07/20/22 tablet vomiting 5 days #10 tabs cefuroxime axetil 250 mg tablet 250 mg PO BID 7 days #14 tabs 12/11/22 hydrocodone-homatropine 5 mg-1.5 5 ml PO Q4-6H PRN cough #60 mL 12/11/22 mg/5 mL (5 mL) oral syrup (Hycodan) Allergies Allergy/AdvReac Type Severity Reaction Status Date / Time ibuprofen [From MOTRIN] Allergy Unknown GASTRITIS Verified 06/10/22 21:02 Review of Systems 2 Review of Systems: Yes all other systems are reviewed and are negative ON LICENSE OF [facility] Past Medical History Medical History Antral ulcer Bilateral mastodynia Breast calcification, left Family history of breast cancer H. pylori infection Surgical History H/O esophagogastroduodenoscopy H/O hemorrhoidectomy H/O umbilical hernia repair History of hysterectomy History of tubal ligation Family History Family History Maternal Aunt No problems noted. Social History Social History Household Members: Family Housing: Apartment Do you presently have visiting nurse or other home services: No Alcohol intake: never Patient Tobacco Use Status: Never used Tobacco e-Cigarette/Vaping Use: Never Used Advance Directives: No Advance Directives Information Provided: No service: No Current occupational status: employed Physical Exam ED Vital Signs: Vital Signs - 24 hr 12/11/22 15:09 Temperature 98.7 F Pulse Rate 88 Respiratory Rate 18 Blood Pressure 148/87 H Pulse Oximetry 97 Oxygen Delivery Method Room Air BMI result Body Mass Index 26.9 Appearance: Alert. Oriented X3. No acute distress. Head: normocephalic, atraumatic. Eyes: Pupils equal, round and reactive to light. ENT: Pharynx with moderate generalized erythema posteriorly, No tonsillar swelling or exudate. Neck: Normal inspection. Neck supple. CVS: Normal heart rate and rhythm. Pulses normal. Respiratory: No respiratory distress. Breath sounds normal. Abdomen: Soft and nontender. +BS x4 Skin: Skin warm and dry. Normal skin color. Normal skin turgor. No rashes. Extremities: No lower extremity edema. No joint swelling. Neuro/psych: Oriented X 3. grossly normal, nonfocal. Course Course Course Narrative: This is an RME: Additional HPI, ROS, PE not included below will be deferred to primary provider. This is a [id number], with a hx of WILL, GERD, CVA, presenting to the emergency department with a complaint of sore throat and cough which started yesterday, and dysuria x 3-4 days. Pt states that she had her flu shot last week. Plan: Labs, UA, CXR, viral swabs Medications Administered Discontinued Medications Generic Name Dose Route Start Last Admin Trade Name Freq PRN Reason Stop Dose Admin Cefuroxime Axetil 500 mg 12/11/22 17:34 12/11/22 17:41 Cefuroxime Axetil 500 Mg Tablet PO 12/11/22 17:35 500 mg ONCE ONE Administration Medical Decision Making Medical Decision Making [facility] Narrative: 52 yo female presenting with URI and UTI symptoms x1 day. VSS and exam is unremarkable. CXR clear. Labs normal. Viral PCR + for RSV. UA + for UTI. Patient counseled on diagnosis and management of both RSV and UTI. Comfortable w/ discharge home. Patient agrees w/ plan Differential Diagnosis Differential Diagnoses: The differential diagnosis associated with the presentation includes strep, covid, flu, rsv, other viral syndrome, bronchitis, pneumonia, no evidence of peritonsillar abcsess or retropharyngeal abscess Lab Data [facility] Lab Attestation statement: I reviewed the patient's lab results. no leukocytosis, no metabolic derangements 12/11/22 16:14 12/11/22 16:14 Labs: Lab Results 12/11/22 12/11/22 Range/Units 16:14 17:15 WBC 7.9 (4.8-10.8) X10*3/uL RBC 4.67 (4.20-5.50) X10*6/uL Hgb 13.8 (12.0-16.0) g/dl Hct 42.6 (37.0-47.0) % MCV 91.2 (80.0-98.0) fL MCH 29.6 (27.0-33.0) pg MCHC 32.4 (31.0-35.0) g/dl RDW 12.8 (11.0-16.0) % Plt Count 228 (160-400) X10*3/uL MPV 10.2 (9.4-12.3) fL Immature Gran % (Auto) 0.4 (0.0-0.4) % Neut % (Auto) 75.7 H (45-73) % Lymph % (Auto) 11.0 L (20-40) % [place] % (Auto) 9.2 (2-11) % Eos % (Auto) 3.3 (0-4) % Baso % (Auto) 0.4 (0-2) % Lymph # (Auto) 0.9 L (1.2-4.9) X10*3/uL [place] # (Auto) 0.7 (0.1-1.2) X10*3/uL Eos # (Auto) 0.3 (0.0-0.4) X10*3/uL Baso # (Auto) 0.0 (0.0-0.2) X10*3/uL Abs Immat Gran (auto) 0.03 (0.00-0.03) X10*3/uL Absolute Neuts (auto) 6.0 (2.0-8.3) x10*3/uL Absolute Nucleated RBC 0.000 (0.0-0.012) X10*3/uL Nucleated RBC % (auto) 0.0 (0.0-0.2) /100WBC Sodium 140 (135-145) mmol/L Potassium 4.1 (3.3-5.1) mmol/L Chloride 107 (96-108) mmol/L Carbon Dioxide 23 (22-29) mmol/L Anion Gap 14 (12-20) BUN 9 (9-16) mg/dL Creatinine 0.65 (0.5-1.4) mg/dL Estim Creat Clear Calc 108.9 Estimated GFR > 60 Random Glucose 87 (60-115) mg/dL Calcium 10.0 D (8.4-10.2) mg/dL Total Bilirubin 0.6 (0.0-1.0) mg/dL Direct Bilirubin 0.2 (0.0-0.5) mg/dL AST 16 (5-31) U/L ALT 12 (0-31) U/L Alkaline Phosphatase 140 H (39-117) U/L Total Protein 7.2 (6.5-8.0) g/dL Albumin 4.3 (3.5-5.0) g/dL Urine Color Yellow Urine Appearance Clear Urine pH 6.5 (5.0-9.0) Ur Specific [place] 1.020 (1.005-1.025) Urine Protein Negative (Neg-Trace) mg/dL Urine Glucose (UA) Negative (Negative) mg/dL Urine Ketones Negative (Negative) mg/dL Urine Blood Trace H (Negative) Urine Nitrite Positive H (Negative) Ur Leukocyte Esterase Negative (Negative) Urine RBC 3-5 H (0-2) /HPF Urine WBC 0-5 (0-5) /HPF Ur Squamous Epith Cells 3-5 (0-2) /HPF Urine Bacteria 4+ (None Seen) Hyaline Casts 0-2 (0-2) /LPF Influenza Type A (PCR) NEGATIVE (Negative) Influenza Type B (PCR) NEGATIVE (Negative) RSV RNA Qual (PCR) POSITIVE A (Negative) SARS-CoV-2 RNA (RT-PCR) NEGATIVE (Negative) S. pyogenes GrpA IVON Negative (Negative) Independent Interpretation I performed an independent interpretation of an: Plain X-Ray Interpretation: no acute infiltrate or effusion Radiology Impression Discussion of test interpretation with radiology: I have reviewed the radiologist's reading. Radiologist Impression: EXAMINATION: XR CHEST CLINICAL INFORMATION: Cough. Left-sided chest pain. COMPARISON: Chest CT 02/03/2022 and chest x-ray 11/13/2021 TECHNIQUE: 2 views of the chest were obtained. FINDINGS: Cardiac silhouette is normal in size. The lungs are adequately aerated. Asymmetric elevation of left hemidiaphragm is again noted. There is no lobar consolidation. No pleural effusion or pneumothorax. Patient is status post sternotomy. XR/XR chest 2V IMPRESSION: No acute pulmonary pathology. External Record Review External record reviewed: Outpatient record, Prior outpatient labs and Prior outpatient radiology Prescription Management I considered prescription management with: Pain Medication and Antibiotic Critical Care Time Critical Care Time Critical Care Time: No Discharge Plan Discharge Clinical Impression: Respiratory syncytial virus (RSV), Acute lower UTI Patient Disposition: Home, Self-Care Instructions: Respiratory Syncytial Virus (ED), Urinary Tract Infection in Women (DC) Additional Instructions: You were found to be RSV POSITIVE today. This is a common respiratory virus. It is contageous, posing most risk to the elderly and very young. Your labs, chest x-ray and oxygen levels were normal. Your urine test showed you have a urinary tract infection Take the prescribed antibiotics as directed, complete the entire course and do not miss any doses Rest. Drink plenty of fluids. Do not go out in public while you are not feeling well. Take over the counter cold/flu medications as needed for your symptoms. Take Tylenol and/or Motrin as needed for fevers and body aches. Follow up with your doctor as needed If you develop new or worsening symptoms call 911 or come back to the ER for further evaluation. Prescriptions: New cefuroxime axetil 250 mg tablet 250 mg PO BID 7 Days Qty: 14 0RF hydrocodone-homatropine [Hycodan] 5-1.5 mg/5 mL (5 mL) syrup 5 ml PO Q4-6H PRN (Reason: cough) Qty: 60 0RF Rx Instructions: Partial Fill upon patient request. No Action pantoprazole 40 mg tablet,delayed release (DR/EC) 40 mg PO BID Qty: 60 1RF sucralfate 1 gram tablet 1 g PO BEDTIME Qty: 30 6RF benzonatate 100 mg capsule 100 mg PO TID PRN (Reason: cough) Qty: 14 0RF buspirone 5 mg tablet 5 mg PO DAILY@1400 cyclobenzaprine 10 mg tablet 1 tab PO DAILY PRN (Reason: muscle spasm) lorazepam 0.5 mg tablet 1 tab PO BID PRN (Reason: anxiety) acetaminophen 325 mg tablet 975 tab PO DAILY Linzess 72 mcg capsule 72 mcg PO DAILY PRN (Reason: Stomach Upset) Rx Instructions: first thing in the am with a full glass of water aspirin 81 mg Tablet,Delayed Release (Dr/Ec) 81 mg PO DAILY Qty: 30 0RF tramadol 50 mg tablet 50 mg PO TID PRN (Reason: pain (scale score 7-10)) Qty: 12 0RF ondansetron 4 mg tablet,disintegrating 4 mg PO TID PRN (Reason: nausea and vomiting) 5 Days Qty: 10 0RF acetaminophen 325 mg capsule 650 mg PO BID PRN (Reason: Fever Or Pain) gabapentin 800 mg tablet 800 mg PO BID PRN (Reason: Pain, Moderate) sumatriptan succinate 50 mg tablet 50 mg PO NEEDED Interventions: ED Discharge Assessment Last Done: 12/11/22 17:55 Discharge Date/Time: 12/11/22 17:55
[2022-12-11 15:09] VITALS: BP 148/87; PULSE 88; RESP 18; TEMP 37.1; O2SAT 97; BMI 26.9
[2022-12-11 16:38] LABS: MANUAL DIFF FLAG NO
[2022-12-11 16:42] LABS: Basophils Percent Auto 0.4 % (0-2); Eosinophils Absolute Auto 0.3 X10*3/uL (0.0-0.4); Eosinophils Percent Auto 3.3 % (0-4); Hematocrit 42.6 % (37.0-47.0); Hemoglobin 13.8 g/dl (12.0-16.0); Imm Gran Abs Auto 0.03 X10*3/uL (0.00-0.03); Imm Gran Pct Auto 0.4 % (0.0-0.4); Lymphocytes Absolute Auto 0.9 X10*3/uL (1.2-4.9); Mean Corpuscular HGB Conc 32.4 g/dl (31.0-35.0); Mean Corpuscular Hemoglobin 29.6 pg (27.0-33.0); Mean Corpuscular Volume 91.2 fL (80.0-98.0); Mean Platelet Volume 10.2 fL (9.4-12.3); Monocytes Absolute Auto 0.7 X10*3/uL (0.1-1.2); Monocytes Percent Auto 9.2 % (2-11); Neutrophils Percent Auto 75.7 % (45-73); Platelet Count 228 X10*3/uL (160-400); Red Blood Count 4.67 X10*6/uL (4.20-5.50); Red Cell Distribution Width 12.8 % (11.0-16.0); White Blood Count 7.9 X10*3/uL (4.8-10.8)
[2022-12-11 16:54] LABS: Alanine Aminotransferase 12 U/L (0-31); Albumin Level 4.3 g/dL (3.5-5.0); Alkaline Phosphatase 140 U/L (39-117); Anion Gap 14 (12-20); Aspartate Amino Transferase 16 U/L (5-31); Bilirubin Direct 0.2 mg/dL (0.0-0.5); Bilirubin Total 0.6 mg/dL (0.0-1.0); Blood Urea Nitrogen 9 mg/dL (9-16); Carbon Dioxide 23 mmol/L (22-29); Chloride 107 mmol/L (96-108); Creatinine Clr Calc Pharmacy 108.9; Estimated Glomerular Filt Rate > 60; Glucose Random 87 mg/dL (60-115); Potassium 4.1 mmol/L (3.3-5.1); Sodium 140 mmol/L (135-145); Total Protein 7.2 g/dL (6.5-8.0)
[2022-12-11 16:57] LABS: IDNOW Serial# 08D9AD1C
[2022-12-11 16:58] LABS: Strep A Nucleic Acid Negative (Negative)
[2022-12-11 17:20] LABS: Influenza A PCR NEGATIVE (Negative); Influenza B PCR NEGATIVE (Negative); Resp Syncy Virus RNA Qual PCR POSITIVE (Negative); SARS COV2 PCR INHOUSE NEGATIVE (Negative)
[2022-12-11 17:29] LABS: Appearance Urine Clear; Color Urine Yellow; Glucose Urine UA Negative (Negative); Leukocyte Esterase Urine Negative (Negative); Nitrite Urine Positive (Negative); PH 6.5 (5.0-9.0); UMIC TRIGGER UACC YES; Urine Blood Trace (Negative); Urine Ketones Negative (Negative); Urine Protein Negative (Neg-Trace)
[2022-12-11 17:34] LABS: Bacteria Urine 4+ (None Seen); Hyaline Casts Urine 0-2 /LPF (0-2); UACC Culture Trigger YES; WBC Urine 0-5 /HPF (0-5)
== END 2022-12-11 17:55 | disposition home or self-care (01) ==
PROVIDERS: Physician Assistant Medical; Emergency Provider Emergency Medicine; PCP Internal Medicine
DX: J02.8 Acute pharyngitis due to other specified organisms (principal); R11.2 Nausea with vomiting, unspecified; R07.89 Other chest pain; R05.9 Cough, unspecified; R06.02 Shortness of breath; M54.50 Low back pain, unspecified; Z79.899 Other long term (current) drug therapy
CPT/HCPCS: 0241U; 36415; 71046; 80048; 80076; 81001; 85025; 87086; 87088; 87186; 87651; 99282; 99283

== ENCOUNTER 2023-01-16 22:38 | Emergency (ER) | payer OTHER, SELFPAY ==
--- NOTE | 2023-01-16 | ECG_ITS ---
Test Reason : CHEST PAIN Blood Pressure : / mmHG Vent. Rate : 072 BPM Atrial Rate : 072 BPM P-R Int : 138 ms QRS Dur : 084 ms QT Int : 374 ms P-R-T Axes : 060 062 054 degrees QTc Int : 409 ms Normal sinus rhythm Normal ECG When compared with ECG of 02-FEB-2022 23:12, No significant change was found Referred By: Generic ED Physician Electronically Signed By:LYNNE LAGUNAS MD
--- NOTE | ~2023-01-16 | CT_ITS ---
EXAMINATION: CT HEAD WITHOUT CONTRAST CLINICAL INFORMATION: Right-sided postoperative COMPARISON: 07/20/2022 TECHNIQUE: Multidetector volumetric imaging of the head was performed without intravenous contrast material. This CT examination was performed using dose optimization techniques as appropriate, variously including the following: *Automated exposure control *Adjustment of mA and/or kV according to patient size (this includes techniques or standardized protocols for targeted exams where dose is matched to indication/reason for exam; i.e. extremities or head) *Use of iterative reconstruction technique Dose: 623 mGy-cm FINDINGS: Postsurgical changes of right parieto-occipital craniotomy are evident along the lambdoidal suture. No appreciable surrounding fluid collections. There is a small zone of underlying encephalomalacia in the underlying occipital lobe which is more pronounced as compared to prior. There is no evidence of acute intracranial hemorrhage or territorial infarction. No abnormal mass-effect or midline shift is seen. [place] to white matter differentiation is well preserved. No extra axial fluid collections. The ventricles are normal in size and configuration. Aside from the aforementioned region of encephalomalacia, there are no additional foci of abnormal attenuation within the brain parenchyma. No acute osseous findings. Estimated s cells are clear. There is near complete opacification of the left maxillary sinus, similar to prior. Secretions are present within multiple ethmoid air cells, similar to prior. CT/CT head/brain wo IV con IMPRESSION: 1. Postsurgical changes of right parieto-occipital craniotomy with underlying encephalomalacia in the right occipital lobe. No acute intracranial abnormalities. 2. Left maxillary and ethmoid sinus disease, similar to prior.
[2023-01-16 22:41] VITALS: BP 153/105; PULSE 82; RESP 18; TEMP 36.7; O2SAT 97; BMI 27.4
--- NOTE | 2023-01-16 22:41 | PC.NURSE ---
MD Hoskins notified of pt symptoms in triage. Ekg, labs ordered. Pt to be brought back to next available room next but for now told by MD not to initiate stroke protocol. reviewed pt's medical history in chart. 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
[2023-01-16 22:48] VITALS: BP 164/97
[2023-01-16 23:13] LABS: Basophils Percent Auto 0.6 % (0-2); Eosinophils Absolute Auto 0.2 X10*3/uL (0.0-0.4); Eosinophils Percent Auto 3.2 % (0-4); Hematocrit 41.3 % (37.0-47.0); Hemoglobin 13.9 g/dl (12.0-16.0); Imm Gran Abs Auto 0.01 X10*3/uL (0.00-0.03); Imm Gran Pct Auto 0.2 % (0.0-0.4); Lymphocytes Absolute Auto 1.8 X10*3/uL (1.2-4.9); Lymphocytes Percent Auto 28.3 % (20-40); MANUAL DIFF FLAG NO; Mean Corpuscular HGB Conc 33.7 g/dl (31.0-35.0); Mean Corpuscular Hemoglobin 29.8 pg (27.0-33.0); Mean Corpuscular Volume 88.4 fL (80.0-98.0); Mean Platelet Volume 9.7 fL (9.4-12.3); Monocytes Absolute Auto 0.5 X10*3/uL (0.1-1.2); Monocytes Percent Auto 7.9 % (2-11); Neutrophils Absolute Auto 3.8 x10*3/uL (2.0-8.3); Neutrophils Percent Auto 59.8 % (45-73); Platelet Count 253 X10*3/uL (160-400); Red Blood Count 4.67 X10*6/uL (4.20-5.50); Red Cell Distribution Width 12.3 % (11.0-16.0); White Blood Count 6.3 X10*3/uL (4.8-10.8)
[2023-01-16 23:25] VITALS: BP 152/93; PULSE 64; RESP 20; TEMP 36.8; O2SAT 96
[2023-01-16 23:29] LABS: Alanine Aminotransferase 15 U/L (0-31); Albumin Level 4.4 g/dL (3.5-5.0); Alkaline Phosphatase 132 U/L (39-117); Anion Gap 10 (12-20); Aspartate Amino Transferase 17 U/L (5-31); Bilirubin Total 0.4 mg/dL (0.0-1.0); Blood Urea Nitrogen 13 mg/dL (9-16); Calcium 9.8 mg/dL (8.4-10.2); Carbon Dioxide 26 mmol/L (22-29); Chloride 110 mmol/L (96-108); Creatinine Clr Calc Pharmacy 97.8; Estimated Glomerular Filt Rate > 60; Glucose Random 115 mg/dL (60-115); Potassium 4.3 mmol/L (3.3-5.1); Sodium 142 mmol/L (135-145); Total Protein 7.1 g/dL (6.5-8.0)
[2023-01-16 23:36] LABS: Troponin-I High Sensitivity < 2.7 ng/L (<3.5-17.0)
--- NOTE | 2023-01-16 23:56 | ED.CHESTPAIN ---
HPI - Chest Pain General Chief Complaint: Neuro Symptoms/Deficit Stated Complaint: headache left arm pain hx of stroke 2021 Time Seen by Provider: 01/16/23 23:19 Source: patient Mode of arrival: ambulatory Limitations: no limitations History of Present Illness HPI narrative: Patient history of migraine headache , CVA status post craniotomy 07/23 comes here for headache started early today located to the right side with light sensitivity also complaining of left-sided chest pain which is reproducible increased with palpation and taking deep breaths no shortness of breath patient took her medication rizatriptan and tizanidine and still having the pain no focal deficit no vomiting has some nausea Related Data Home Medications Medication Instructions Recorded Confirmed acetaminophen 325 mg capsule 650 mg PO BID PRN Fever Or Pain 02/10/20 02/03/22 gabapentin 800 mg tablet 800 mg PO BID PRN Pain, Moderate 02/10/20 02/03/22 sumatriptan succinate 50 mg tablet 50 mg PO NEEDED migraine 03/01/21 02/03/22 acetaminophen 325 mg tablet 975 tab PO DAILY 02/03/22 02/03/22 buspirone 5 mg tablet 5 mg PO DAILY@1400 anxiety 02/03/22 02/03/22 cyclobenzaprine 10 mg tablet 1 tab PO DAILY PRN muscle spasm 02/03/22 02/03/22 linaclotide 72 mcg capsule 72 mcg PO DAILY PRN Stomach Upset 02/03/22 02/03/22 (Linzess) lorazepam 0.5 mg tablet 1 tab PO BID PRN anxiety 02/03/22 02/03/22 Previous Rx's Medication Instructions Recorded pantoprazole 40 mg tablet,delayed 40 mg PO BID #60 tabs 11/13/21 release sucralfate 1 gram tablet 1 g PO BEDTIME #30 tabs 11/13/21 aspirin 81 mg tablet,delayed 81 mg PO DAILY #30 tabs 02/05/22 release benzonatate 100 mg capsule 100 mg PO TID PRN cough #14 caps 03/13/22 tramadol 50 mg tablet 50 mg PO TID PRN pain (scale score 06/11/22 7-10) #12 tabs ondansetron 4 mg disintegrating 4 mg PO TID PRN nausea and 07/20/22 tablet vomiting 5 days #10 tabs cefuroxime axetil 250 mg tablet 250 mg PO BID 7 days #14 tabs 10/11/23 hydrocodone-homatropine 5 mg-1.5 5 ml PO Q4-6H PRN cough #60 mL 12/11/22 mg/5 mL (5 mL) oral syrup (Hycodan) Allergies Allergy/AdvReac Type Severity Reaction Status Date / Time ibuprofen [From MOTRIN] Allergy Unknown GASTRITIS Verified 06/10/22 21:02 Review of Systems Review of Systems: Yes all other systems are reviewed and are negative [facility] Past Medical History Medical History Breast calcification, left Bilateral mastodynia Antral ulcer H. pylori infection Family history of breast cancer Surgical History H/O esophagogastroduodenoscopy H/O hemorrhoidectomy History of hysterectomy History of tubal ligation H/O umbilical hernia repair Family History Family History Maternal Aunt No problems noted. Social History Social History Household Members: Family Housing: Apartment Do you presently have visiting nurse or other home services: No Alcohol intake: never Patient Tobacco Use Status: Never used Tobacco e-Cigarette/Vaping Use: Never Used Advance Directives: No Advance Directives Information Provided: Yes service: No Current occupational status: employed Physical Exam Vital Signs: Vital Signs: Last Vital Signs Temp 98.2 F 01/16/23 23:25 Pulse 64 01/16/23 23:25 Resp 20 01/16/23 23:25 BP 152/93 H 01/16/23 23:25 Pulse Ox 96 01/16/23 23:25 O2 Del Method Room Air 01/16/23 23:25 BMI result Body Mass Index 27.4 Appearance: Alert. Oriented X3. No acute distress. Eyes: PERRLA, No Nystagmus ENT: Pharynx normal. Oral Mucosa moist no temporal artery tenderness Neck: Normal inspection. Neck supple. CVS: Normal heart rate and rhythm. Pulses normal. Respiratory: No respiratory distress. Equal air entry bilateral, no wheezing/rales/rhonchi left 2nd intercostal reproducible tenderness Abdomen: Soft and nontender. Bowel sounds are present, no mass palpable, no CVA tenderness Skin: Skin warm and dry. Normal skin color. Normal skin turgor. Extremities: No lower extremity edema. No calf tenderness Neuro: Oriented X 3. No motor deficit. No sensory deficit.No cerebellar signs , cranial nerves II-XII intact Medications Administered Discontinued Medications Generic Name Dose Route Start Last Admin Trade Name Freq PRN Reason Stop Dose Admin Acetaminophen/Butalbital/Caffeine 1 tab 01/16/23 23:57 01/17/23 00:51 Butalb/Acetamin/Caff 50/325/40 Tablet PO 01/16/23 23:58 1 tab ONCE ONE Administration Medical Decision Making Medical Decision Making [facility] Narrative: Patient migraine headache head CT is negative for acute bony deficit patient already took rizatriptan at home will give a Fioricet with partial response will give morphine discharge patient home patient also has left chest wall pain troponin negative D-dimer negative Differential Diagnosis Differential Diagnoses: The differential diagnosis associated with the presentation includes ACS/costochondritis/PE/migraine headache Admission/Observation Consideration of admission/observation: Escalation of care including admission/observation considered Lab Data [facility] Lab Attestation statement: I reviewed the patient's lab results. 01/16/23 23:08 01/16/23 23:08 Labs: Lab Results 01/16/23 Range/Units 23:08 WBC 6.3 (4.8-10.8) X10*3/uL RBC 4.67 (4.20-5.50) X10*6/uL Hgb 13.9 (12.0-16.0) g/dl Hct 41.3 (37.0-47.0) % MCV 88.4 (80.0-98.0) fL MCH 29.8 (27.0-33.0) pg MCHC 33.7 (31.0-35.0) g/dl RDW 12.3 (11.0-16.0) % Plt Count 253 (160-400) X10*3/uL MPV 9.7 (9.4-12.3) fL Immature Gran % (Auto) 0.2 (0.0-0.4) % Neut % (Auto) 59.8 (45-73) % Lymph % (Auto) 28.3 (20-40) % [place] % (Auto) 7.9 (2-11) % Eos % (Auto) 3.2 (0-4) % Baso % (Auto) 0.6 (0-2) % Lymph # (Auto) 1.8 (1.2-4.9) X10*3/uL [place] # (Auto) 0.5 (0.1-1.2) X10*3/uL Eos # (Auto) 0.2 (0.0-0.4) X10*3/uL Baso # (Auto) 0.0 (0.0-0.2) X10*3/uL Abs Immat Gran (auto) 0.01 (0.00-0.03) X10*3/uL Absolute Neuts (auto) 3.8 (2.0-8.3) x10*3/uL Absolute Nucleated RBC 0.000 (0.0-0.012) X10*3/uL Nucleated RBC % (auto) 0.0 (0.0-0.2) /100WBC Sodium 142 (135-145) mmol/L Potassium 4.3 (3.3-5.1) mmol/L Chloride 110 H (96-108) mmol/L Carbon Dioxide 26 (22-29) mmol/L Anion Gap 10 L (12-20) BUN 13 (9-16) mg/dL Creatinine 0.73 (0.5-1.4) mg/dL Estim Creat Clear Calc 97.8 Estimated GFR > 60 Random Glucose 115 (60-115) mg/dL Calcium 9.8 (8.4-10.2) mg/dL Total Bilirubin 0.4 (0.0-1.0) mg/dL AST 17 (5-31) U/L ALT 15 (0-31) U/L Alkaline Phosphatase 132 H (39-117) U/L Troponin I High Sens < 2.7 (<3.5-17.0) ng/L Total Protein 7.1 (6.5-8.0) g/dL Albumin 4.4 (3.5-5.0) g/dL Independent Interpretation I performed an independent interpretation of an: EKG and CT Scan Interpretation: Normal sinus rhythm 172 beats per minute normal interval normal axis no acute ST-T no acute ischemia Radiology Impression Discussion of test interpretation with radiology: I have reviewed the radiologist's reading. Discharge Plan Discharge Clinical Impression: Migraines, Costochondral pain Patient Disposition: Home, Self-Care Instructions: Migraine Headache (ED), Chest Wall Pain (ED) Additional Instructions: Continue taking medication as prescribed by your neurologist Follow-up with your neurologist for further management Prescriptions: No Action pantoprazole 40 mg tablet,delayed release (DR/EC) 40 mg PO BID Qty: 60 1RF sucralfate 1 gram tablet 1 g PO BEDTIME Qty: 30 6RF benzonatate 100 mg capsule 100 mg PO TID PRN (Reason: cough) Qty: 14 0RF buspirone 5 mg tablet 5 mg PO DAILY@1400 cyclobenzaprine 10 mg tablet 1 tab PO DAILY PRN (Reason: muscle spasm) lorazepam 0.5 mg tablet 1 tab PO BID PRN (Reason: anxiety) acetaminophen 325 mg tablet 975 tab PO DAILY Linzess 72 mcg capsule 72 mcg PO DAILY PRN (Reason: Stomach Upset) Rx Instructions: first thing in the am with a full glass of water aspirin 81 mg Tablet,Delayed Release (Dr/Ec) 81 mg PO DAILY Qty: 30 0RF tramadol 50 mg tablet 50 mg PO TID PRN (Reason: pain (scale score 7-10)) Qty: 12 0RF ondansetron 4 mg tablet,disintegrating 4 mg PO TID PRN (Reason: nausea and vomiting) 5 Days Qty: 10 0RF cefuroxime axetil 250 mg tablet 250 mg PO BID 7 Days Qty: 14 0RF hydrocodone-homatropine [Hycodan] 5-1.5 mg/5 mL (5 mL) syrup 5 ml PO Q4-6H PRN (Reason: cough) Qty: 60 0RF Rx Instructions: Partial Fill upon patient request. acetaminophen 325 mg capsule 650 mg PO BID PRN (Reason: Fever Or Pain) gabapentin 800 mg tablet 800 mg PO BID PRN (Reason: Pain, Moderate) sumatriptan succinate 50 mg tablet 50 mg PO NEEDED
[2023-01-17] MEDS: Butalb/Acetamin/Caff 50/325/40 TABLET 1 TAB PO (00:51)
[2023-01-17 01:00] VITALS: BP 152/81; PULSE 87; RESP 15; O2SAT 100
== END 2023-01-17 01:20 | disposition home or self-care (01) ==
PROVIDERS: Emergency Provider Internal Medicine
DX: G43.909 Migraine, unspecified, not intractable, without status migrainosus (principal); M79.602 Pain in left arm; R07.89 Other chest pain; R07.1 Chest pain on breathing; Z79.899 Other long term (current) drug therapy
CPT/HCPCS: 36415; 70450; 80053; 84484; 85025; 93005; 99284; 99285

== ENCOUNTER 2023-03-06 14:50 | Outpatient (REF) | payer OTHER, SELFPAY ==
--- NOTE | ~2023-03-06 | MM_ITS ---
EXAMINATION: MM SCREENING DIGITAL BREAST TOMOSYNTHESIS, BILATERAL CLINICAL INFORMATION: Screening. Asymptomatic. COMPARISON: Mammography: This study is compared with prior exams dating back to 2019. TECHNIQUE: Digital breast tomosynthesis is performed in both the craniocaudal and mediolateral oblique views along with computer-aided detection (CAD). Synthesized 2D images are generated from the tomosynthesis. FINDINGS: The breasts are heterogeneously dense, which may obscure small masses (ACR BI-RADS breast composition Category c). There are no significant masses, abnormal calcifications, or other abnormalities. There are tissue markers in each breast from prior benign percutaneous biopsies. MM/MM tomosynthesis screening BI IMPRESSION: No mammographic evidence of malignancy. ASSESSMENT: BI-RADS BI-RADS 2 - Benign Findings RECOMMENDATION: Routine annual mammography screening. 1 year F/U This examination should not preclude the clinical evaluation of a suspicious palpable abnormality. This patient's information was entered into a reminder system with a target due date for their next mammogram.
== END 2023-03-06 14:51 | disposition home or self-care (01) ==
LOC: HO.MAMMO 14:50
PROVIDERS: PCP Internal Medicine; Visit Provider Internal Medicine
DX: Z12.31 Encounter for screening mammogram for malignant neoplasm of breast (principal)
CPT/HCPCS: 77063; 77067

== ENCOUNTER → 2023-03-06 15:00 | Outpatient (BNV) | payer OTHER, SELFPAY | PROVIDERS: PCP Internal Medicine; Visit Provider Radiology Diagnostic Radiology | DX: Z12.31 Encounter for screening mammogram for malignant neoplasm of breast (principal) | CPT/HCPCS: 77063; 77067 ==

== ENCOUNTER 2023-10-29 10:23 | Outpatient (AMB) | payer OTHER, SELFPAY ==
[2023-10-29 10:42] VITALS: BMI 30.4
--- NOTE | 2023-10-29 10:42 | A.OFFVIS_ITS ---
Vital Signs 10/29/23 10:42 Height 5 ft 7 in Weight 194 lb BMI 30.4 Intake Visit Reasons: bilateral breast pain Intake Note: This patient presents for an assessment for bilateral breast pain. Pt c/o; reports bilateral breast pain, reports occasional sharp pain more on the right breast, reports chest pain. Dimethylaniline Sulfator Operator Required: Yes Dimethylaniline Sulfator Operator Language: Hungarian Information Interpreted: non-clinical & clinical Accompanied by: Self / Same As Patient Allergies ibuprofen [From MOTRIN] Allergy (Unknown, Verified 10/29/23 10:44) GASTRITIS HPI HPI bilateral breast pain: Details: She is here for follow-up for bilateral breast pain. She has had this on and off for about 2 years now. I had seen her in the past for this problem almost 2 years ago. Her mammograms have been unremarkable otherwise She says that her breast pain improves on and off as well. She says she has minimal pain in the left this time and her pain on the right breast has improved as well. She denies any nipple or skin changes Her last mammogram was in March of 2023 and this was unremarkable. She does mention that she had a stroke last year and had undergone brain surgery. She also said she had a valve replacement last year as well. Her mother had been diagnosed to have breast cancer in her 30s . The patient already had undergone genetic testing in the past and she did not have any genetic mutation. [facility] Medical History Breast calcification, left Bilateral mastodynia Antral ulcer H. pylori infection Family history of breast cancer Surgical History H/O esophagogastroduodenoscopy H/O hemorrhoidectomy History of hysterectomy History of tubal ligation H/O umbilical hernia repair Family History Maternal Aunt No problems noted. Social History Household Members: Family Housing: Apartment Do you presently have visiting nurse or other home services: No Alcohol intake: never Comment: sleeping Patient Tobacco Use Status: Never used Tobacco e-Cigarette/Vaping Use: Never Used service: No Current occupational status: employed Review of Systems Const Denies chills and Denies fever(s) Card Denies chest pain, Denies dyspnea and Denies dyspnea on exertion Resp Denies cough, Denies dyspnea and Denies dyspnea on exertion GI Denies hematochezia and Denies change in bowel habits Denies hematuria Musc Denies back pain and Denies limited range of motion Neuro Denies focal weakness and Denies convulsions Psych Denies depression and Denies mood swings Physical Exam Vital Signs: BMI result Body Mass Index 30.4 Const General: comfortable and no acute distress Orientation/consciousness: patient oriented x3 Neck Neck: Yes no lymphadenopathy Chest Other: No palpable breast masses, no nipple or skin changes, no axillary lymphadenopathy Resp Auscultation: clear to auscultation bilaterally Cardio Rhythm: regular rhythm GI Palpation (GI): Soft to palpation, nontender and no guarding Neuro General: patient oriented x3 Assessment & Plan Assessment & Plan (1) Bilateral mastodynia: Code(s): N64.4 - Mastodynia Category: Medical Plan: She is here for follow-up for her mastodynia. She has had this for over 2 years. She says that this seems to flare up on and off. She says that her pain level is better at this time I have reviewed her mammograms. Her last mammogram was in March, and this was unremarkable I assured her that it does not appear that she has any surgical issues with regards to her breasts at this time. I did explain to her that she should continue with her regular yearly mammograms. I reminded her that her next 1 would be in March,. I will see her in the office to review this with her then. Coding Level of Care Code Est Pt Level 3 (95982) Diagnoses Bilateral mastodynia N64.4
== END 2023-10-29 10:56 | disposition home or self-care (01) ==
PROVIDERS: PCP Internal Medicine; Visit Provider Surgery
DX: N64.4 Mastodynia (principal)
CPT/HCPCS: 99213

== ENCOUNTER → 2023-10-29 10:23 | Outpatient (BNVA) | payer OTHER, SELFPAY | PROVIDERS: PCP Internal Medicine; Visit Provider Surgery | DX: N64.4 Mastodynia (principal) | CPT/HCPCS: 99212 ==

== ENCOUNTER 2024-05-19 14:23 | Outpatient (REF) | payer MEDICARE, MEDICAID, SELFPAY ==
--- OUTSIDE RECORDS SUMMARY | 2024-05-19 16:43 | XMS_ITS | Encounter Summary ---
Author Organization [facility] [facility] Address [address] [place] [address] Care Team Providers Care Attending Anesthesiologist Name Role Phone Unavailable Primary Care Provider Unavailabl e Encounter Details Date Type Department Care Team (Latest Contact Info) Description 09/26/2021 Abstract [facility] CONVERSIONS Dental, Provider, DDS Social History Tobacco Use Types Packs/Day Years Used Date Smoking Tobacco: Never Assessed Comments Unknown Sex and Gender Information Value Date Recorded Sex Assigned at Female 12/31/2021 10:31 AM EDT Legal Sex Female 10:31 AM EDT Gender Identity Choose not to disclose 10:31 AM EDT Sexual Orientation Choose not to disclose 2021 10:31 AM EDT documented as of this encounter Plan of Treatment Not on file documented as of this encounter Visit Diagnoses Not on filedocumented in this encounter
--- OUTSIDE RECORDS SUMMARY | 2024-05-19 16:43 | XMS_ITS | Encounter Summary ---
Author Organization [employer] [facility] Address [address] [place] [address] Care Team Providers Care Environmental Conservation Professor Name Role Phone Unavailable Primary Care Provider Unavailabl e Encounter Details Date Type Department Care Team (Latest Contact Info) Description 12/29/2020 Abstract [facility] CONVERSIONS Dental, Provider, DDS Social History Tobacco [...]
--- OUTSIDE RECORDS SUMMARY | 2024-05-19 16:43 | XMS_ITS | Clinical Summary ---
Author Organization [facility] Address [address] [place] [address] Care Team Providers Care Cnc Machine Setter Name Role Phone Unavailable Primary Care Provider Unavailabl e Allergies Active Allergy Reactions Criticality Noted Date Comments Ibuprofen Other (See Comments) Medium 03/28/2018 Medications Medication Sig Dispensed Refills Start Date End Date Status FLUoxetine (PROzac) 20 MG capsule Take 20 mg by mouth daily. 0 Active gabapentin (NEURONTIN) 300 MG capsule Take 300 mg by mouth 2 (two) times a day. 0 Active ACETAMINOPHEN-CODEINE #3 PO Take 300 mg by mouth. 0 Active TROSPIUM CHLORIDE ER PO Take 60 mg by mouth. 0 Active sucralfate (CARAFATE) 1 g tablet Take 1 g by mouth 3 (three) times a day. 0 Active omeprazole (PriLOSEC) 20 MG capsule Take by mouth daily. 0 Active raNITIdine (ZANTAC) 75 MG/5ML syrup Take 150 mg by mouth 2 (two) times a day. 0 Active SUMAtriptan (IMITREX) 25 MG tablet Take 25 mg by mouth every 2 (two) hours as needed for migraine. 0 Active calcium citrate-vitamin D (CITRACAL+D) 315-200 MG-UNIT per tablet Take 1 tablet by mouth 2 (two) times a day. 0 Active Methylcellulose, Laxative, (CITRUCEL) 500 MG TABS Take 1,000 mg by mouth daily. 0 Active senna (SENOKOT) 8.6 MG tablet Take 2 tablets by mouth daily. 0 Active Social History Tobacco Use Types Packs/Day Years Used Date Smoking Tobacco: Never Smokeless Tobacco: Never Alcohol Use Standard Drinks/Week Comments No 0 (1 standard drink = 0.6 oz pur e alcohol) Sex and Gender Information Value Date Recorded Sex Assigned at Female 03/31/2018 3:17 PM EST Gender Identity Not on file Sexual Orientation Not on file Last Filed Vital Signs Vital Sign Reading Time Taken Comments Blood Pressure 128/74 03/28/2018 6:10 PM EST Pulse 74 03/28/2018 6:10 PM EST Temperature 36.6 ??C (97.9 ??F) 03/28/2018 6:10 PM ES T Respiratory Rate 16 03/28/2018 6:10 PM EST Oxygen Saturation 100% 03/28/2018 6:10 PM EST Inhaled Oxygen Concentration - - Weight 71.7 kg (158 lb) 03/28/2018 2:59 PM EST Height 170.2 cm (5' 7 ) 03/28/2018 2:59 PM EST Body Mass Index 24.75 03/28/2018 2:59 PM EST Plan of Treatment Health Maintenance Due Date Last Done Comments Hepatitis B Vaccines (1 of 3 - 3-dose series) 1970 Hepatitis C Screening 1970 COVID-19 Vaccine (#1) 05/18/1971 Depression Screening 1982 Preventative Health Evaluation 1988 DTap / Tdap / Td (1 - Tdap) 1989 Cervical Cancer Screening (P ap Smear) 11/18/1991 Colon Cancer Screening (Colonoscopy) 11/18/2015 Breast Cancer Screening (Mammogram) 2020 Shingrix-Zoster Vaccine (1 of 2) 2020 Influenza Vaccine (#1) 2023 Pneumococcal Vaccine Aged Out No long er eligible based on patient's age to complete this topic RSV Ped < 20 months Aged Out No longe r eligible based on patient's age to complete this topic
--- OUTSIDE RECORDS SUMMARY | 2024-05-19 16:43 | XMS_ITS | Clinical Summary ---
Author Organization [facility] Address [address] [place] [address] Care Team Providers Care Protection Manager Name Role Phone Unavailable Primary Care Provider Unavailabl e Surgical History Surgery Date Site/Laterality Comments HYSTERECTOMY PROCEDURE:HYSTERECTOMY Medical History Medical History Date Comments Headache DX:Headache Social History Tobacco Use Types Packs/Day Years Used Date Smoking Tobacco: Never Smokeless Tobacco: Never Alcohol Use Standard Drinks/Week Comments No 0 (1 standard drink = 0.6 oz pur e alcohol) Comments Unknown Sex and Gender Information Value Date Recorded Sex Assigned at Not on file Legal Sex Female 1:34 PM EST Gender Identity Not on file Sexual Orientation Not on file Obstetrics History Plan of Treatment Health Maintenance Due Date Last Done Comments Breast Cancer Screening 1970 DTaP,Tdap,and Td Vaccines (1 - Tdap) 1989 Hepatitis B Vaccines (1 of 3 - 19+ 3-dose series) 1989 Cervical Cancer Screening: P ap Smear 11/18/1991 Pneumococcal Vaccine: 50+ Ye ars (1 of 1 - PCV) 2020 Zoster Vaccines (1 of 2) 2020 COVID-19 Vaccine ( - 2023-2 5 season) 2023 Influenza Vaccine (#1) 2023 HIB Vaccines Aged Out No longer eligi ble based on patient's age to complete this topic HPV Vaccines Aged Out No longer eligi ble based on patient's age to complete this topic Hepatitis A Vaccines Aged Out No long er eligible based on patient's age to complete this topic IPV Vaccines Aged Out No longer eligi ble based on patient's age to complete this topic MMR Vaccines Aged Out No longer eligi ble based on patient's age to complete this topic Meningococcal ACWY Vaccine Aged Out N o longer eligible based on patient's age to complete this topic Meningococcal B Vacine Aged Out No lo nger eligible based on patient's age to complete this topic Pneumococcal Vaccine: Pediat rics (0 to 5 Years) and At-Risk Patients (6 to 64 Years) Aged Out No longer eligible b ased on patient's age to complete this topic RSV Immunization Patients Un narcisa 20 months Aged Out No longer eligible b ased on patient's age to complete this topic Varicella Vaccines Aged Out No longer eligible based on patient's age to complete this topic
--- OUTSIDE RECORDS SUMMARY | 2024-05-19 16:44 | XMS_ITS | Encounter Summary ---
Author Organization [employer] [facility] Address [address] [place] [address] Care Team Providers Care Wardrobe Coordinator Name Role Phone Unavailable Primary Care Provider Unavailabl e Encounter Details Date Type Department Care Team (Late st Contact Info) Description 03/15/2024 Telephone [facility] ADULT DENTAL [address] [place] [address] Elfego Goodman, DMD [address] [place] [address] Social History Tobacco Use Types Packs/Day Years Used Date Smoking Tobacco: Never Smokeless Tobacco: Never Comments Unknown Sex and Gender Information Value Date Recorded Sex Assigned at Female 12/31/2021 10:31 AM EDT Legal Sex Female 10:31 AM EDT Gender Identity Choose not to disclose 10:31 AM EDT Sexual Orientation Choose not to disclose 2021 10:31 AM EDT documented as of this encounter Miscellaneous Notes * Telephone Encounter - Fariba Bryant - 03/15/2024 2:23 PM EST Patient in a lot of pain please send her something stronger documented in this encounter Plan of Treatment Not on file documented as of this encounter Visit Diagnoses Not on filedocumented in this encounter
--- OUTSIDE RECORDS SUMMARY | 2024-05-19 16:44 | XMS_ITS | Clinical Summary ---
Author Organization [facility] Address [address] [place] [address] Care Team Providers Care Cardiac Catheterization Technologist Name Role Phone Unavailable Primary Care Provider Unavailabl e Allergies Active Allergy Reactions Criticality Noted Date Comments Ibuprofen Medium 09/17/2015 Other reaction(s): gastric burningupset, Other (See Comments), Unable to Recall Nsaids 08/22/2022 Other reaction(s): gastritis Medications Aspirin Low Dose 81 MG EC tablet Take 81 mg by mouth in the morning. 3 Active busPIRone (Buspar) 10 MG tablet TAKE 1 TABLET BY MOUTH TWICE DAILY FOR ANXIETY 3 Active cefuroxime (Ceftin) 250 MG tablet Take 250 mg by mouth 2 times daily. 3 Active diazePAM (Valium) 5 MG tablet TAKE 1 TO 2 TABLETS BY MOUTH 1 HOUR BEFORE INJECTION 3 Active doxepin (SINEquan) 75 MG capsule TAKE 1 CAPSULE BY MOUTH DAILY AT BEDTIME 3 Active DULoxetine (Cymbalta) [address] capsule Take 60 mg by mouth in the morning. 3 Active estradiol (Estrace) 0.1 MG/GM vaginal cream INSERT 1 GRAM VAGINALLY EVERY DAY AT BEDTIME FOR FOURTEEN DAYS THEN TWICE A WEEK AFTER USE PEA SIZED AMOUNT 4 Active omeprazole (PriLOSEC) [address] capsule Take 20 mg by mouth in the morning. Active QUEtiapine (SEROquel) 25 MG tablet TAKE 1 TABLET BY MOUTH DAILY AT BEDTIME NEEDED FOR HALLUCINATIONS 4 Active rizatriptan (Maxalt) 5 MG tablet TAKE 1 TABLET BY MOUTH AT ONSET OF MIGRAINE. MAY REPEAT ONCE AFTER 2 HOURS IF NEEDED DO NOT EXCEED 2 TABLETS / 24 HOURS Active gabapentin (Neurontin) 600 MG tablet Take 600 mg by mouth 2 times daily. 4 Active LORazepam (Ativan) 1 MG tablet Take 1 mg by mouth if needed in the morning, at noon, and at bedtime for anxiety. 4 Active amitriptyline (Elavil) 10 MG tablet Take 20 mg by mouth. 4 Active zolpidem (Ambien) 5 MG tablet Take 5 mg by mouth at bedtime. Active tiZANidine (Zanaflex) 2 MG tablet Take 2 mg by mouth. 4 Active phenazopyridin e (Pyridium) 100 MG tablet TAKE 2 TABLETS BY MOUTH THREE TIMES DAILY FOR 7 DAYS WITH FOOD 4 Active nitrofurantoin , macrocrystal-m onohydrate, (Macrobid) 100 MG capsule Take 100 mg by mouth 2 times daily. 4 Active acetaminophen (Tylenol) 325 MG tablet TAKE 2 TABLETS BY MOUTH EVERY 4 HOURS NEEDED FOR PAIN. DO NOT EXCEED 4,000 MG / DAY. 4 Active ascorbic acid (Vitamin C) 500 mg chewable tablet Chew 500 mg. 4 Active Ubrelvy 50 MG tablet TAKE 1 TABLET BY MOUTH AT ONSET OF MIGRAINE. MAY REPEAT ONCE AFTER 2 HOURS IF NEEDED. DO NOT EXCEED 2 DOSES IN 24 HOURS. Active clopidogrel (Plavix) 75 MG tablet Take 75 mg by mouth. 4 Active cyclobenzaprin e (Flexeril) 10 MG tablet Take 1 tablet by mouth every 6 (six) hours during the day. 4 Active Docusate Sodium (DSS) 100 MG capsule Take 100 mg by mouth. 4 Active Polyethylene Glycol 3350 (PEG 3350) 17 GM/SCOOP powder MIX 17 GRAMS WITH WATER AND DRINK ONCE DAILY FOR 7 DAYS 4 Active ondansetron (Zofran) 4 MG tablet Take 4 mg by mouth. 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 Hemangioma of liver 12/18/2016 Encounters Date Type Department Care Team Description 03/17/2024 11:30 AM EST Office Visit [facility] ADULT DENTAL [address] [place] [address] Viola Caballero, DDS 03/15/2024 Telephone [facility] ADULT DENTAL [address] [place] [address] Elfego Goodman DMD 03/08/2024 1:00 PM EST Office Visit [facility] ADULT [facility] [address] [place] [address] Elfego Goodman DMD from Last 3 Months Social History Tobacco Use Types Packs/Day Years Used Date Smoking Tobacco: Never Smokeless Tobacco: Never Tobacco Cessation:Counseling Given: Not Answered Comments Unknown Sex and Gender Information Value Date Recorded Sex Assigned at Female 12/31/2021 10:31 AM EDT Legal Sex Female 10:31 AM EDT Gender Identity Choose not to disclose 10:31 AM EDT Sexual Orientation Choose not to disclose 2021 10:31 AM EDT Last Filed Vital Signs Vital Sign Reading Time Taken Comments Blood Pressure 133/76 03/17/2024 11:46 AM EST Pulse 69 01/29/2023 2:09 PM EST Temperature - - Respiratory Rate - - Oxygen Saturation - - Inhaled Oxygen Concentration - - Weight - - Height - - Body Mass Index - - Plan of Treatment Health Maintenance Due Date Last Done Comments CT Colonography 1970 Colonoscopy 1970 Colorectal Cancer Screening 1970 Depression Screening 1970 FIT DNA/Cologuard 1970 FIT 1970 FOBT 1970 HIV Screening 1970 SDOH Screening 1970 Sigmoidoscopy 1970 Alcohol/Substance Use Screening 1982 Hepatitis C Screening 1988 Hepatitis A Vaccines (1 of 2 - Risk 2-dose series) 1989 Hepatitis B Vaccines (1 of 3 - 19+ 3-dose series) 1989 Pap Smear 11/18/1991 Cervical Cancer Screening 2000 HPV/Cotest 2000 Mammogram 04/15/2019 04/15/2017 Pneumococcal Vaccine: 50+ Years (2 of 2 - PCV) 2020 10/28/2018 Zoster Vaccines (1 of 2) 2020 Dental Prophylaxis 07/31/2023 01/29/2023, 0 08/22/2022, 09/26/2021, Additional history exists Dental Oral Exam 08/08/2023 02/05/2023, , 05/28/2017, Additional history exists COVID-19 Vaccine ( season) 2023 03/20/2021, 08/03/2020, 07/13/2020 Dental X-Ray: Full Mouth 12/31/2023 12/29/2020, 06/02 Tobacco Screening 03/08/2025 03/08/2024 Dental X-Ray: Bitewings 03/09/2025 03/08/19, 12/29/2020, 05/28/2017, Additional history exists DTaP/Tdap/Td Vaccines (2 - Td or Tdap) 04/29/2028 04/29/2018 RSV Patients and Patients Aged 60 years or older (1 - 1-dose 75+ series) 2045 Influenza Vaccine Completed 12/05/2023, , 12/06/2022, Additional history exists HIB Vaccines Aged Out No longer eligi ble based on patient's age to complete this topic HPV Vaccines Aged Out No longer eligi ble based on patient's age to complete this topic IPV Vaccines Aged Out No longer eligi ble based on patient's age to complete this topic Meningococcal Vaccine Aged Out No terri marquis eligible based on patient's age to complete this topic RSV under 20 months Aged Out No longe r eligible based on patient's age to complete this topic Rotavirus Vaccines Aged Out No longer eligible based on patient's age to complete this topic Procedures Procedure Name Priority Date/Time Associated Diagnosis Comments CASE PRESENTATION, DETAILED AND EXTENSIVE TREATMENT PLANNING Routine 03/17/2024 11:30 AM EST LIMITED ORAL EVALUATION - PROBLEM FOCUSED Routine 03/17/2024 11:30 AM EST CASE PRESENTATION, DETAILED AND EXTENSIVE TREATMENT PLANNING Routine 03/08/2024 1:00 PM EST BITEWING - SINGLE RADIOGRAPHIC IMAGE Routine 03/08/2024 1:00 PM EST INTRAORAL - PERIAPICAL FIRST RADIOGRAPHIC IMAGE Routine 03/08/2024 1:00 PM EST PALLIATIVE (EMERGENCY) TREATMENT OF DENTAL PAIN - MINOR PROCEDURE Routine 03/08/2024 1:00 PM EST PERIODIC ORAL EVALUATION - ESTABLISHED PATIENT Routine 02/05/2023 2:30 PM EST PROPHYLAXIS - ADULT Routine 01/29/2023 2 :00 PM EST INTRAORAL - COMPLETE SERIES OF RADIOGRAPHIC IMAGES Routine 12/29/2020 12:00 AM EDT BI MAMMOGRAM SCREENING BILATERAL Routine 04/15/2017 7:13 AM EST from Last 3 Months or Most Recently Relevant to Health Maintenance Results * 3D DIGITAL SARAH SCR MAMMO 1 (04/15/2017 7:13 AM EST) Anatomical Region Laterality Modality Breast Bilateral Mammography 04/15/2017 7:13 AM EST Narrative 04/15/2017 7:17 AM EST Refer to the Notes tab for result details Legacy Procedure: 3D DIGITAL SARAH SCR MAMMO 1 Procedure Note Provider, Lennie, - 05/25/2022 Refer to the Notes tab for result details Legacy Procedure: 3D DIGITAL SARAH SCR MAMMO 1 Historical Provider MD FRAZIER BI PROCEDURES Final R esult from Last 3 Months or Most Recently Relevant to Health Maintenance Insurance [employer] [facility] MEDICAID STAND ADULT
== END 2024-05-19 14:24 | disposition home or self-care (01) ==
LOC: HO.MAMMO 14:23
PROVIDERS: PCP Registered Nurse; Visit Provider Registered Nurse
DX: Z12.31 Encounter for screening mammogram for malignant neoplasm of breast (principal)
CPT/HCPCS: 77063; 77067

== ENCOUNTER → 2024-05-19 14:30 | Outpatient (BNV) | payer MEDICARE, MEDICAID, SELFPAY | PROVIDERS: PCP Registered Nurse; Visit Provider Internal Medicine | DX: Z12.31 Encounter for screening mammogram for malignant neoplasm of breast (principal) | CPT/HCPCS: 77063; 77067 ==